=== PATIENT | female | born 1935 | race Caucasian/White ===

== ENCOUNTER 2018-06-27 20:53 | Emergency (ER) | payer MEDICARE, SELFPAY ==
[2018-06-27 20:56] VITALS: BP 157/88; PULSE 76; PULSE 79; RESP 18; TEMP 36.8; O2SAT 97; O2SAT 98; BMI 20.4
[2018-06-27 22:40] LABS: Absolute Lymphocyte Count 1.66 X10^3/ul (0.83-4.51); Absolute Neutrophil Count 3.4 X10^3/uL (2.0-7.7); Basophil# 0.02 X10^3/uL; Basophil% 0.3 % (0-1); Eosinophil# 0.04 X10^3/uL; Eosinophils% 0.7 % (0-5); Hemoglobin 13.5 g/dl (12.0-15.0); Lymphocyte # 1.66 X10^3/ul (4.0); Lymphocyte % 28.6 % (19-41); Mean Corp Hgb Conc 34.6 g/gl (32-36); Mean Corpuscular Hgb 30.2 pg (27.0-32.0); Mean Corpuscular Volume 87.2 fL (81-99); Mean Platelet Vol. 8.8 fl (6.2-12.0); Monocyte# 0.73 X10^3/uL; Monocyte% 12.6 % (0-10); Neutrophil # 3.35 X10^3/uL (2.7-7.7); Neutrophil % 57.6 % (47-70); Platelet Count 198 K/mm3 (150-450); RBC Distribution Width CV 12.3 % (11.6-14.6); RBC Distribution Width SD 39.2 fl (35.1-43.9); Red Blood Count 4.47 M/mm3 (4.2-5.4); White Blood Count 5.8 K/mm3 (4.4-11.0)
[2018-06-27 22:44] LABS: POSITIVE COUNT NO; POSITIVE DIFFERENTIAL NO; POSITIVE MORPHOLOGY NO
[2018-06-27 23:00] LABS: Anion Gap 6 (5-15); BUN 13 mg/dL (7-18); BUN/Creat Ratio 15.5 RATIO (10-20); Calcium,Total 9.2 mg/dL (8.5-10.1); Chloride 109 mmol/L (98-107); Creatinine, Serum 0.84 mg/dL (0.55-1.02); EST Glomerular Filtration Rate 69 mL/min (>60); Est Glom Filt Rate - Afr Amer 84 mL/min (>60); Estimated Creatinine Clearance 40.31 ml/min; Glucose 95 mg/dL (74-106); Potassium 3.4 mmol/L (3.5-5.1); Sodium Level 144 mmol/L (136-145); Thyroid Stim Hormone (TSH) 0.21 uIU/mL (0.358-3.74)
[2018-06-27 23:03] VITALS: BP 154/78; PULSE 62; RESP 13; O2SAT 99
--- NOTE | 2018-06-27 23:16 | ED.DCSUM_ITS ---
- ER Visit Summary Date of Service: 06/27/18 Chief Complaint: Lightheaded and numbness History of Present Illness: The patient is a [address] Trevizo. She reports that approximately 5:00 this afternoon she was sitting on the couch and been on the phone for approximately 30 minutes when she began feeling lightheaded. She states that this episode lasted approximately 20 minutes. There was no other associated features. No chest pain or palpitations. No shortness of breath. No abdominal pain or nausea. No diaphoresis. There was no change when she stood. She did not pass out. She reports that she drank a great deal of water and that this resolved. Patient reports that while this began she had diffuse tingling that included her face, trunk, both arms, and both legs. She states that she has had this previously without an explanation. She reports that the tingling has improved, but is still present. Review of systems: General: No fever, chills, cold sweats. Cardiovascular: No chest pain, palpitations. Respiratory: No cough, shortness of breath, dyspnea on exertion. Gastrointestinal: No abdominal pain, nausea, vomiting, diarrhea, melena, or hematochezia. Genitourinary: No dysuria, frequency, hematuria. Skin: No rash. Neuro: No headache, weakness. Physical Examination: Vitals: Stable. Afebrile. General: Well-nourished and well-developed. Head: Normocephalic atraumatic. Neck: Supple, no lymphadenopathy. No JVD. Nontender. Cardiovascular: Regular rate and rhythm. No murmurs. Respiratory: No respiratory distress. Clear to auscultation bilaterally. Abdominal: Soft, nontender, nondistended, normal bowel sounds. No guarding, rebound, or peritoneal signs. Back: Nontender. Extremities: Nontender, no edema. Skin: Normal color, no rash. Neurologic: Alert and oriented ?3. Cranial nerves II through XII are intact. Normal strength and sensation. Psych: Normal affect. Test Results: EKG is sinus at [address] changes. Troponins negative. Chem-7 is more for potassium 3.4 chloride 109. CBC is more for monocytes of 13. TSH is 0.21. Emergency Department Course and Treatment: Patient is resting comfortably without complaint. I did have a discussion with the patient about her low TSH. She reports that her Synthroid was already decreased 3 days ago. Treatment Plan: At this time I do not have an explanation for the patient's paresthesias. She will be discharged instructions to follow-up Dr. Trevizo in 1-2 days for another exam. Return to the emergency department for any worsening symptoms. Disposition: To home in improved and stable condition. Impression: 1. Paresthesias, uncertain cause. This note was generated with [employer] dictation software. It may contain incorrect words, spelling, and punctuation that were not noted in review of the chart prior to signing ED Disposition - Plan for ED Patient: Disposition: Home or Assisted Living Chief Complaint: Numb/Ting Instructions: ED Paraesthesias Referrals: Aide Trevizo MD [Primary Care Provider] - As soon as possible
[2018-06-27 23:31] VITALS: BP 140/80; PULSE 58; RESP 17; O2SAT 98
== END 2018-06-27 23:32 | disposition home or self-care (01) ==
LOC: ED 21:51
PROVIDERS: Emergency Provider Emergency Medicine; Family Provider Internal Medicine; PCP Internal Medicine
DX: R20.2 Paresthesia of skin (principal); R42 Dizziness and giddiness; E03.9 Hypothyroidism, unspecified; M81.0 Age-related osteoporosis without current pathological fracture
CPT/HCPCS: 80048; 84443; 84484; 85025; 93005; 99284; A4216

== ENCOUNTER 2018-08-13 13:57 | Emergency (ER) | payer MEDICARE, SELFPAY ==
[2018-08-13 13:59] VITALS: BP 153/90; PULSE 68; RESP 18; TEMP 36.4; O2SAT 99; BMI 22.1
[2018-08-13] MEDS: Triamcinolone Acetonide 40 MG/ML Vial IM (14:28)
[2018-08-13] MEDS: DiphenhydrAMINE 25 MG Capsule PO (14:28)
--- NOTE | 2018-08-13 15:40 | ED.VISSUMM ---
- ER Visit Summary Date of Service: 08/13/18 Chief Complaint: Bug bite History of Present Illness: The patient is a 83 F who presents after a bug bite or sting. She was outdoors. She felt a sudden pain on her left chest. She developed redness and itching. She initially applied hydrocortisone cream. She then crushed a cetirizine tablet mixed in water and applied it topically and also took a cetirizine orally. She does complain of itching on her hands and under her arms. No difficulty breathing. No nausea or vomiting. She had a recent illness which began 2 weeks ago when she had fever up to 101 but no recent fevers. She has complained of some fatigue since that time and is currently undergoing an outpatient workup. Physical Examination: Afebrile vitals are unremarkable Moist mucous membranes Heart regular rate and rhythm Lungs clear Abdomen soft Patient does have a small lesion on the left lateral chest which appears consistent with a bite or sting. She has urticaria in that area extending onto the breast as well as on the abdomen and arms. No respiratory distress no stridor Test Results: Not indicated Emergency Department Course and Treatment: Patient treated with intramuscular Kenalog and oral Benadryl. She has been observed for two hours and shows significant improvement. She will be discharged home to follow-up as an outpatient. Treatment Plan: [] Disposition: Discharge Impression: Bug bite or sting Allergic reaction This note was generated with [employer] dictation software. It may contain incorrect words, spelling, and punctuation that were not noted in review of the chart prior to signing ED Disposition - Plan for ED Patient: Chief Complaint: Bite Referrals: Aide Trevizo MD [Primary Care Provider] -
--- NOTE | 2018-08-13 15:42 | ED.DEP ---
ED Disposition - Plan for ED Patient: Chief Complaint: Bite Instructions: ED Bite Sting Insect Gen Allergic React Referrals: Aide Trevizo MD [Primary Care Provider] -
[2018-08-13 15:52] VITALS: RESP 18; O2SAT 98
== END 2018-08-13 15:52 | disposition home or self-care (01) ==
PROVIDERS: Emergency Provider Emergency Medicine; Family Provider Internal Medicine; PCP Internal Medicine
DX: T63.481A Toxic effect of venom of other arthropod, accidental (unintentional), initial encounter (principal); L50.0 Allergic urticaria; E20.9 Hypoparathyroidism, unspecified; E03.9 Hypothyroidism, unspecified
CPT/HCPCS: 96372; 99284

== ENCOUNTER 2018-09-10 22:10 | Emergency (ER) | payer MEDICARE, SELFPAY ==
[2018-09-10 22:10] VITALS: BP 166/96; PULSE 90; RESP 16; O2SAT 98
[2018-09-10 22:11] VITALS: BP 166/96; PULSE 81; RESP 16; TEMP 36.8; O2SAT 100; BMI 21.1
[2018-09-10 22:20] LABS: Bedside Glucose 127 mg/dL (70-110)
--- NOTE | 2018-09-10 22:36 | EKG12_ITS ---
Test Reason : Blood Pressure : / mmHG Vent. Rate : 070 BPM Atrial Rate : 070 BPM P-R Int : 130 ms QRS Dur : 074 ms QT Int : 390 ms P-R-T Axes : 067 044 069 degrees QTc Int : 421 ms Normal sinus rhythm Low voltage QRS Confirmed by ALVIN HALL, TENZIN ([id number]), clinical editor ANISH SUTHERLAND ([id number]) on 09/11/2018 10:04:57 AM Referred By: LAVERNE Confirmed By:TENZIN ESQUIVEL MD
--- NOTE | 2018-09-10 22:36 | CT_ITS ---
STUDY: CT BRAIN WITHOUT CONTRAST REASON FOR EXAM: Female, 83 years old. Extremity numbness. RADIATION DOSAGE (If Supplied By Facility): CTDIvol = ( 44.99 ) mGy, DLP = ( 745.49 ) mGycm TECHNIQUE: Transaxial CT imaging of the brain was performed without administration of intravenous contrast material. Multiplanar reformations are submitted for interpretation. Individualized dose optimization techniques were used for this CT. COMPARISON: Prior comparison studies are not available for review at this time. FINDINGS: Normal soft tissue structures. Normal calvarium. There is mild cerebral atrophy with widening of the extra-axial spaces and ventricular dilatation. There are areas of decreased attenuation within the white matter tracts of the supratentorial brain, consistent with microvascular disease changes. Normal basal ganglia and thalami. Normal brainstem. There is mild cerebellar atrophy. There is no intracranial hemorrhage. There is minimal atherosclerotic calcification of the intracranial arteries. Normal visualized paranasal sinuses. CT/Brain/Head without Contrast IMPRESSION: 1. Chronic involutional changes of the brain. 2. No CT evidence of acute intracranial hemorrhage. Electronically Signed: Kendy Byers MD at 23:25 EDT , Service support ,
[2018-09-10 22:45] LABS: Absolute Lymphocyte Count 1.76 X10^3/ul (0.83-4.51); Absolute Neutrophil Count 3.6 X10^3/uL (2.0-7.7); Basophil# 0.02 X10^3/uL; Basophil% 0.3 % (0-1); Eosinophil# 0.12 X10^3/uL; Hematocrit 41.3 % (37-47); Hemoglobin 14.1 g/dl (12.0-15.0); Lymphocyte # 1.76 X10^3/ul (4.0); Lymphocyte % 28.6 % (19-41); Mean Corp Hgb Conc 34.1 g/gl (32-36); Mean Corpuscular Hgb 30.2 pg (27.0-32.0); Mean Corpuscular Volume 88.4 fL (81-99); Mean Platelet Vol. 8.7 fl (6.2-12.0); Monocyte# 0.68 X10^3/uL; Monocyte% 11.1 % (0-10); Neutrophil # 3.55 X10^3/uL (2.7-7.7); Neutrophil % 57.7 % (47-70); POSITIVE COUNT NO; POSITIVE DIFFERENTIAL NO; POSITIVE MORPHOLOGY NO; Platelet Count 238 K/mm3 (150-450); RBC Distribution Width CV 12.4 % (11.6-14.6); RBC Distribution Width SD 39.8 fl (35.1-43.9); Red Blood Count 4.67 M/mm3 (4.2-5.4); White Blood Count 6.2 K/mm3 (4.4-11.0)
[2018-09-10 22:59] LABS: Albumin, Serum 3.8 g/dL (3.2-5.0); BUN 15 mg/dL (7-18); Creatinine, Serum 0.84 mg/dL (0.55-1.02); EST Glomerular Filtration Rate 70 mL/min (>60); Est Glom Filt Rate - Afr Amer 84 mL/min (>60); Estimated Creatinine Clearance 37.73 ml/min; Glucose 118 mg/dL (74-106); Protein, Total 7.8 g/dL (6.4-8.2)
[2018-09-10 23:00] LABS: AST(SGOT) 20 U/L (15-37); Alanine Aminotransfer ALT/SGPT 21 U/L (13-56); Alkaline Phosphatase 76 U/L (45-117); Anion Gap 8 (5-15); Calcium,Total 9.6 mg/dL (8.5-10.1); Chloride 100 mmol/L (98-107); Potassium 3.3 mmol/L (3.5-5.1); Sodium Level 138 mmol/L (136-145)
--- NOTE | 2018-09-10 23:11 | ED.DCSUM_ITS ---
- ER Visit Summary Date of Service: 09/10/18 Chief Complaint: Paresthesia History of Present Illness: The patient is a 83 F presenting for evaluation secondary to paresthesias. Patient states that since mid June she has been dealing with these issues where she will get intermittent paresthesias. She sta nima that they are not necessarily in one place versus another and will be associated with foot leg abdominal chest back arm or head paresthesias. Patient states that there are necessarily any sort of exacerbating or relieving factors for this. She was seen in the emergency department for this in June and had a workup that included EKG and blood work and was discharged. Patient has been working with her primary care physician Dr. Lopez Morel for further workup of this. She had a recent CT brain with and without contrast that was negative and she has had a litany of blood tests that have not revealed an etiology for her symptoms as of yet. Patient states that somewhere between June and today she was in [place] and she had a fever and neck pain and back pain. It was thought that potentially she had viral meningitis, but there was never any sort of confirmation of this. Denied patient's presenting because she was having an episode of her paresthesias but it was also associated with a very sudden onset of a weird feeling in her head. She states that she felt as if she was going to have double vision but she never actually did. She denies that there is any sort of pain associated with this. Patient now states that she has head to toe paresthesias without any laterality to this. Physical Examination: Vital signs are within normal limits, patient is afebrile. General: Patient is well-nourished well-developed and in no acute distress. Head: Normocephalic, atraumatic Eyes: Pupils equal round and reactive bilaterally, extra occular motion intact bialterally ENT: Moist mucous membranes Neck: Supple, no lymphadenopathy, no JVD, no meningismus CVS: Heart regular rate and rhythm, no murmurs, rubs or gallops, radial pulses 2+ bilaterally Resp: Respirations nondistressed, lung sounds clear bilaterally Abdomen: Soft, nontender, nondistended, no palpable masses, normal bowel sounds Back: Nontender Extremities: Nontender, atraumatic, active full range of motion, no peripheral edema Skin: warm, no rashes, no petechia Neuro: Alert and oriented x 4, CN 2-12 intact, no lateralizing neurological defecits, NIH stroke scale is 0 Psyc: Normal affect Test Results: CBC and CMP are remarkable only mild hypokalemia 3.3. Troponin negative. CT brain shows chronic involutional changes Emergency Department Course and Treatment: Patient presented for evaluation secondary to paresthesias and a weird feeling in her head. Fact the patient stated that she had the weird feeling in her head followed by paresthesia was at least somewhat concerning for the possibility of new intracranial pathology so a CT brain was performed which is negative. Patient is within a 6-hour window so likelihood of subarachnoid hemorrhage is extremely low and I do not believe that further workup is indicated from that aspect. CBC was within normal limits, making the likelihood of infection or lymphoma causing the patient's symptoms to be low. She has normal electrolyte panel normal EKG and a normal troponin. Patient has had an extensive outpatient workup for this including Lyme titers, autoimmune titers, imaging, but is not yet had a neurologic consultation. I believe that this likely is the next step for this patient as she may benefit from advanced imaging with MRI as this could potentially be an element of demyelinating disease versus autoimmune. Patient will be given a referral to neurology at this point. I see no utility in admitting the patient to the hospital at this time. Patient will be discharged with continued outpatient follow-up. Disposition: Discharge Impression: 1. Bilateral paresthesias This note was generated with [employer] dictation software. It may contain incorrect words, spelling, and punctuation that were not noted in review of the chart prior to signing ED Disposition - Plan for ED Patient: Disposition: Home or Assisted Living Chief Complaint: Neuro S/Sx Diagnosis: Paresthesia Instructions: ED Paraesthesias Referrals: Slava Madsen MD [STAFF PHYSICIAN] - As soon as possible
[2018-09-11 00:06] VITALS: BP 155/92; PULSE 67; RESP 16; O2SAT 96
[2018-09-11 00:26] VITALS: BP 141/83; PULSE 72; RESP 17; O2SAT 97
== END 2018-09-11 00:30 | disposition home or self-care (01) ==
PROVIDERS: Emergency Provider Emergency Medicine; Family Provider Internal Medicine; PCP Internal Medicine
DX: R20.2 Paresthesia of skin (principal); Z79.899 Other long term (current) drug therapy
CPT/HCPCS: 70450; 80053; 82962; 84484; 85025; 93005; 99285; A4216

== ENCOUNTER 2018-11-15 12:30 | Outpatient (RCR) | payer MEDICARE, SELFPAY ==
--- NOTE | 2018-10-09 11:49 | HP.PTEVAL_ITS ---
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 Date of Evaluation: 10/08/18 Physical Therapist: India Jones Visit Plan Frequency: 2-3x /Week Duration: 4-6 Weeks Plan: POSTURE CORRECTION/STRENGTHENING, INSTRUCTION IN APPROPRIATE BODY MECHANICS AND ACTIVITY MODIFICATIONS. GEORGE UE ROM, STRETCHING AND STRENGTHENING. HEP INSTRUCTION. 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 Work/Leisure: RETIRED. HOBBIES: GOLF, KNITTING, BRIDGE. Disability: NO. Present symptoms: IN THE LAST WEEK OR SO MARINA REPORTS TINGLING IN HER NECK, FACE, LIPS, HEAD AND FEET. NECK STIFFNESS. TINGLING IN LEGS LEFT > RIGHT. NO NECK PAIN. NO UE PAIN. PATIENT DENIES BEING HERE FOR ANY OTHER SX'S TODAY. Present since: JUN 27 2018. TINGLING Scale: Worst - 3- 4/10 Least - 2-3/10 (IN FEET LEFT >RIGHT). 0/10 TO 4/10 IN NECK AREA AND FACE AND HEAD. Currently: NECK TINGLING AND SLIGHTLY IN CHEEKS. Commenced as a result of: 06/27/18 - 9PM SITTING ON COUCH TALKING ON PHONE AND ALL OF A SUDDEN SHE REPORTS SHE GOT TINGLING FULL BODY. SHE STATES SHE IGNORED IT AT FIRST THEN SHE WENT TO THE ED. SHE REPORTS SHE WAS NOT DIAGNOSED AND SHE WAS SENT HOME BECAUSE IT SEEMED TO RESOLVE ON ITS OWN. BETWEEN JUN AND ABOUT Jul SHE DIDN'T HAVE ANY SYMPTOMS. SUDDENLY SHE WOKE UP WITH SEVERE NECK PAIN AND COULDN'T GET OUT OF BED AND HAD FEVER ABOUT AUG 01 2018 WHILE IN [place]. SHE REPORTS SHE DID'T GO TO THE DOCTOR AT THAT POINT UNTIL ABOUT 6 OR 7 DAYS LATER. SHE WENT TO URGENT CARE AND THEY THOUGHT SHE MIGHT HAVE [place] D[facility]. SHE FELT VERY WEAK FLYING HOME. ONCE SHE GOT HOME THE TINGLING HAD RESOLVED AND SHE WAS JUST VERY TIRED. SHE WENT TO [facility] TO DR. ZENDEJAS AND WAS DIAGNOSED WITH VIRAL MENINGITIS. SHE THEN NOTICED THE TINGLING IN HER FEET. SHE SAW DR. MOREL AND SHE DID FURTHER BLOOD WORK. 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 AGAIN SUDDENLY ABOUT 9PM STANDING IN THE KITCHEN TINGLING SWELLED THROUGH HER WHOLE BODY INCLUDING HER HEAD AND SHE CALLED THE [facility]. IN THE ED CAT SCAN WAS NORMAL AND EKG WAS NORMAL. THE SYMPTOMS RESOLVED AGAIN IN THE ED AND NEUROLOGIST WAS RECOMMENDED AND PATIENT REPORTS SHE CHOSE TO WAIT TO SEE A [facility] DOCTOR. IMAGING WAS NEGATIVE AGAIN EXCEPT THE CERVICAL SPINE. NEUROLOGIST IN [place] FOUND NUMBNESS IN LEFT TOES. Symptoms at onset: WHOLE BODY TINGLING. Worse: PATIENT THINKS IT MIGHT BE THE WAY SHE HOLDS HER HEAD. MAYBE LOOKING DOWN. PROPPING HEAD UP AT NIGHT IN BED TO READ. Better: CHANGING HEAD POSITION. Disturbed sleep: NO. Previous history/Previous treatment: UNREMARKABLE. Dizziness: NO. Tinnitis: NO. Nausea: NO. Shortness of Breath: SOME NEW INTERMITTENT SOB WITH STEPS AT HOME SINCE JUN. Difficulty Swollowing: NO BUT VOICE IS DIFFEERENT. Gait: FEELS UNSTABLE INTERMITTENTLY BUT NOT IN LAST FEW WEEKS. NO FALLS. Accidents: NO. Unexplained weight loss: NO. Imaging: MULTIPLE IMAGES OF HEAD AND NECK. PATIENT REPORTS THE ONLY THING THEY FOUND WAS DEGENERATION IN THE NECK - ESPECIALLY C34 REGION TO THE BEST OF HER RECOLECTION. PMH/Recent major surgery: OSTEOPOROSIS, THYROID AND PARATHYROID CONDITIONS. LEFT FOOT LUMP - PODIATRY APPOINTMENT PENDING MONDAY. REMOTE HISTORY OF TWO HERNIATED LUMBAR DISCS - NO BACK SURGERY. PLOF (Prior Level of Function): MORE ENERGY. OTHER: HISTORY OF VOCAL CORDS FREEZING IN [place] IN AUG 2018. RHEUMATOLOGY APPOINTMENT PENDING IN JANUARY 2018. PATIENT REPORTS DR. MOREL RECOMMENDED NECK STRETCHES BUT SHE HAS NOT DONE ANY BECAUSE SHE DOESN'T KNOW WHAT TO DO AND DOESN'T WANT TO MAKE ANYTHING WORSE. - Objective Sitting Posture: FORWARD HEAD. NO TORTICOLLIS. Active Correction of posture: NE. Other Observations: THIS PATIENT AMBULATES INDEP'LY INTO PT WITHOUT ANY ASSISTIVE DEVICES AND NO GROSS DEVICATIONS NOTED. Motor deficit: GEORGE UE AND LE STRENGTH IS WFL WITH MMT'ING. I PROCEEDED CAREFULLY WITH ALL TESTING TODAY INCLUDING MMT'ING BUT PATIENT HAS AT LEAST 4-5/5 GEORGE UE AND LE STRENGTH. PATIENT DENIES INCREASED SX'S WITH TESTING. Sensory deficit: LIGHT TOUCH APPEARS INTACT AND SYMMETRICAL CURRENTLY BUT TOES NOT TESTED SPECIFICALLY. ROM deficit: GEORGE UE AND LE ROM WFL BUT MILD TIGHTNESS OF GEORGE HS'S AND GASTROC - SOLEUS COMPLEX'S. Reflexes: 2/3 GEORGE UE'S AND LE'S. Dural Signs: NEGATIVE GEORGE UE AND LE'S. Cervical Mvmt Loss: Flex: MIN. Pro: NIL. Ext: MOD. Ret: SHANDRA. RSB: MIN. LSB: MOD. R Rot: MIN. L Rot: MOD. Postural strength: POOR. Palpation: PATIENT DENIES ANY ACUTE TENDERNESS WITH PALPATION OF THE THORACIC SPINE, CERVICAL SPINE, OCCIPUT AND TRAPS. SHE THOUGHT THAT LIGHT PALPATION OF HER UPPER CERVICAL SPINE MIGHT HAVE PRODUCED MILD SX'S IN HER LEGS BUT THIS COULD NOT BE REPRODUCED. - Goals Goal 1:: DECREASE C/O TINGLING IN THE VARIOUS PARTS OF HER BODY REPORTED. Goal Time Frame: 4-6 Weeks Goal 2:: IMPROVE PATIENTS ABILITY TO HOLD HER HEAD IN ANY POSITION WITHOUT PROVOKING SX'S TO ALLOW HER TO CONTINUE TOLERATING ACTIVITIES LIKE READING AND PLAYING CARDS. Goal Time Frame: 4-6 Weeks Goal 3:: INDEP HEP FOR CONTINUED IMPROVEMENT ONCE FORMAL PHYSICAL THERAPY CONCLUDES Goal Time Frame: 4-6 Weeks - Rehabilitation Potential Rehabilitation Potential: Good - Anticipated Interventions Patient/Client Instruction: Educate patient on: Condition, Plan of Care, Risk Factors, Benefits of Fitness Program For the Purpose of:: To improve self management Therapeutic Exercise to Include: Strength training, Body mechanics, Postural training, Active ROM, Scapular Strength/Stabilization For the Purpose of:: To increase ROM, To improve nutrient delivery to tissue, To improve muscle performance and motor function, To increase tolerance to a ctivity/condition/position, To improve ability of physical actions for home/community/work/leisure Ultrasound (thermal/non thermal): Yes - CONSIDER For the Purpose of:: To improve nutrient delivery to tissue Thank you for the opportunity to evaluate your patient. For Medicare and Medicare HMO plans, please review the plan of care and approve it. It will need to be FAXED BACK to us at [phone] for Medicare purposes. Please let me know if there are questions or concerns regarding this plan of care. Physician Signature: Date:
--- NOTE | 2018-11-15 13:36 | HP.PTDCSUM ---
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 Discharge Date: Please see the following information for a summary of their discharge status. - Subjective Subjective: PATIENT REPORTS SHE HAD TO GO TO THE ED October FOR CELLULITS IN HER RIGHT LEG. SHE REPORTS SHE IS STILL ON MEDICINE. PATIENT REPORTS THAT THE TINGLING SHE IS HERE FOR IS BETTER OVER ALL. IT HAS CONTINUED TO IMPROVE. STATES SHE HAS CONTINUED HER HOME EX'S BUT NOT REGULARLY DUE TO COMPANY AND THE HOLIDAY'S. STATES SHE HAS TO BE CAREFUL NOT TO OVER-DO-IT OR SHE GETS TINGLING IN HER FACE. THE REST OF HER TINGLING HAS RESOLVED EXCEPT THE FEET AND ALL THE TINGLING COMES AND GOES. NO TINGLING CREEPING UP LEG/LEGS NOW. PATIENT REPORTS THAT HOW SHE SITS EFFECTS HER SX'S. PATIENT APOLOGETIC ABOUT BEING LATE AGAIN. ABLE TO GO SEE JENNIFER ALIREZA. - Overall Improvement % Improvement: 80 - Objective Objective/Function: PATIENT HAS IMPROVED DURING THIS EPISODE OF CARE WITH PT. SHE IS REPORTING THAT HER TINGLING HAS RESOLVED EXCEPT IN HER FACE AND FEET AND EVEN THAT HAS IMPROVED AND IS MILD NOW. THIS PATIENT AMBULATES INDEP'LY INTO PT WITHOUT ANY ASSISTIVE DEVICES AND NO GROSS DEVICATIONS NOTED. Motor deficit: GEORGE UE AND LE STRENGTH IS WFL WITH MMT'ING. I WAS ABLE TO BE MORE AGRESSIVE WITH TESTING TODAY AND PATIENT DENIED INCREASED SX'S WITH TESTING BUT QUESTIONING POSSIBLE SLIGHT CHANGES IN FACE AND FOOT TINGLING OFF AND ON THROUGHOUT SESSION. Sensory deficit: LIGHT TOUCH APPEARS INTACT AND SYMMETRICAL CURRENTLY. ROM deficit: GEORGE UE AND LE ROM WFL. Dural Signs: NEGATIVE GEORGE UE AND LE'S. Cervical Mvmt Loss: Flex: MIN. Pro: NIL. Ext: MIN TO MOD. Ret: MOD. RSB: MIN. LSB: MOD. R Rot: MIN. L Rot: MOD. Postural strength: POOR. Palpation: PATIENT DENIES ANY ACUTE TENDERNESS WITH PALPATION OF THE THORACIC SPINE, CERVICAL SPINE, OCCIPUT AND TRAPS. SHE IS TIGHT THROUGHOUT GEORGE UT'S AND PATIENT REPORTS FEELING TIGHTER IN THE RIGHT THAN THE LEFT. THERE IS NO SIGNIFICANT CHANGE IN NECK OSWESTRY SCORE BUT PATIENT REPORTS SHE HAS NOT TRIED TO GOLF AT LEAST PARTIALLY DUE TO THE CURRENT WEATHER. OSWESTRY SCORE IS GOOD PROBABLY BASED AT LEAST PARTIALLY DUE TO PATIENTS C/O BEING TINGLING NOT PAIN. PATIENT MAY BE A GOOD CANDIDATE FOR MASSAGE THERAPY BUT THIS PT INSTRUCTED PATIENT TO CLEAR IT WITH HER DOCTORS FIRST. - Goals Goal 1:: DECREASE C/O TINGLING IN THE VARIOUS PARTS OF HER BODY REPORTED. Goal Progress: Goal Met Goal 2:: IMPROVE PATIENTS ABILITY TO HOLD HER HEAD IN ANY POSITION WITHOUT PROVOKING SX'S TO ALLOW HER TO CONTINUE TOLERATING ACTIVITIES LIKE READING AND PLAYING CARDS. Goal Progress: Goal Met Goal 3:: INDEP HEP FOR CONTINUED IMPROVEMENT ONCE FORMAL PHYSICAL THERAPY CONCLUDES Goal Progress: Goal Met - Plan Plan: D/C TO INDEP HEP. PATIENT IS AGREEABLE. - D/C Information If there are questions or concerns regarding this patient's physical therapy, please feel free to call me at [phone]. Thank you for the referral of this patient. Sincerely, India Borrero, PT, Cert MDT
== END 2018-11-15 19:00 | disposition home or self-care (01) ==
LOC: PT 12:30
PROVIDERS: Family Provider Student in an Organized Health Care Education/Training Program; PCP Student in an Organized Health Care Education/Training Program; Referring Provider Student in an Organized Health Care Education/Training Program; Visit Provider Student in an Organized Health Care Education/Training Program
DX: M47.812 Spondylosis without myelopathy or radiculopathy, cervical region (principal); M50.30 Other cervical disc degeneration, unspecified cervical region
CPT/HCPCS: 97035; 97110; 97140; 97163; 97530

== ENCOUNTER 2019-06-19 18:04 | Emergency (ER) | payer MEDICARE, SELFPAY ==
[2019-06-19 18:04] VITALS: BP 127/69; PULSE 112; RESP 16; TEMP 37.2; O2SAT 97; BMI 19.8
[2019-06-19] MEDS: MethylPREDNISolone 125 MG/2 ML Vial IV (18:23)
[2019-06-19] MEDS: DiphenhydrAMINE 50 MG/ML Syringe 25 MG IV (18:23)
--- NOTE | 2019-06-19 20:26 | ED.VISSUMM ---
- ER Visit Summary Date of Service: 06/19/19 Chief Complaint: Sting History of Present Illness: The patient is a 83 F who presents after she was stung by some type of insect. This happened suddenly prior to arrival. She was stung in the right ankle. She developed a rash afterwards to her trunk. She had a similar reaction in the past. She denies any confusion or mental status changes. Denies any wheezing or shortness of breath. Denies any GI symptoms, vomiting, or diarrhea. Denies any history of anaphylaxis. Physical Examination: Afebrile and vital signs unremarkable. Alert and oriented. Patient has a single puncture wound to her right ankle without stinger, foreign body. No surrounding erythema, redness, warmth. No bleeding. Neurovascular intact. She has an urticarial rash to her trunk, exam was chaperoned by EVETTE Radford. Test Results: None indicated Emergency Department Course and Treatment: Patient has urticaria without anaphylaxis. She was treated with steroids, Benadryl, Pepcid. On reevaluation, the rash had greatly improved. I believe the patient is appropriate for outpatient care. She will be prescribed Benadryl, Pepcid, prednisone. Her family will stay with her tonight. Return for any new or worsening issues. Treatment Plan: As above Disposition: Discharged Impression: 1. Urticaria This note was generated with [employer] dictation software. It may contain incorrect words, spelling, and punctuation that were not noted in review of the chart prior to signing ED Disposition - Plan for ED Patient: Instructions: ALLERGIC REACTION, Insect (General) Prescriptions: DiphenhydrAMINE [Benadryl] 25 mg PO TID PRN PRN 5 Days #15 cap PRN Reason: rash Prescription Printed Famotidine [Pepcid] 20 mg PO BID 5 Days #10 tab Prescription Printed Prednisone 10 mg PO UD #33 tab Prescription Printed Referrals: Lopez Morel DO [Primary Care Provider] -
[2019-06-19 20:41] VITALS: BP 132/78; PULSE 69; RESP 16; O2SAT 100
--- NOTE | 2019-06-19 20:41 | ED.RN ---
REVIEWED D/C INSTRUCTIONS, FOLLOW UP CARE, PRESCRIPTIONS, AND S/S THAT WOULD WARRANT A RETURN TO THE ED WITH PT. PT VERBALIZED AN UNDERSTANDING AND DENIES FURTHER QUESTIONS FOR THIS RN. PT SKIN P/W/D, RESP EVEN AND UNLABORED, PT A&O X 3, NO DISTRESS NOTED. PT ASSISTED OUT OF ED IN WHEELCHAIR.
== END 2019-06-19 20:42 | disposition home or self-care (01) ==
PROVIDERS: Emergency Provider Emergency Medicine; Family Provider Student in an Organized Health Care Education/Training Program; PCP Student in an Organized Health Care Education/Training Program
DX: L50.9 Urticaria, unspecified (principal); S90.561A Insect bite (nonvenomous), right ankle, initial encounter; W57.XXXA Bitten or stung by nonvenomous insect and other nonvenomous arthropods, initial encounter; Y93.9 Activity, unspecified; Y92.9 Unspecified place or not applicable; M81.0 Age-related osteoporosis without current pathological fracture; E21.3 Hyperparathyroidism, unspecified; Z86.19 Personal history of other infectious and parasitic diseases; Z79.899 Other long term (current) drug therapy
CPT/HCPCS: 96374; 96375; 99283; A4216; J3490

== ENCOUNTER 2020-03-19 18:43 | Emergency (ER) | payer MEDICARE, SELFPAY ==
[2020-01-27 11:19] VITALS: BMI 21.2
[2020-03-19] VITALS (8 sets, daily range): BP systolic 140–175; BP diastolic 78–105; PULSE 82–113; RESP 14–20; TEMP 37.2–37.3; O2SAT 94–97; BMI 21.1
--- NOTE | 2020-03-19 19:16 | CT_ITS ---
STUDY: CT BRAIN WITHOUT CONTRAST REASON FOR EXAM: Female, 84 years old. HTN, FEVER, HEADACHE RADIATION DOSAGE (If Supplied By Facility): CTDIvol = ( 44.99 ) mGy, DLP = ( 745.49 ) mGycm TECHNIQUE: Transaxial CT imaging of the brain was performed without administration of intravenous contrast material. Individualized dose optimization techniques were used for this CT. COMPARISON: No relevant priors. FINDINGS: Normal soft tissue structures. Normal calvarium. Normal size ventricles and extra-axial spaces for the patient''s age. There are areas of decreased attenuation within the white matter tracts of the supratentorial brain, consistent with microvascular disease changes. 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 Normal brainstem. There is mild cerebellar atrophy. There is no intracranial hemorrhage. There are no findings of an acute ischemic infarction. Normal visualized paranasal sinuses. CT/Brain/Head without Contrast IMPRESSION: No acute intracranial findings. Negative for hemorrhage, hematoma or demarcation of a new nonhemorrhagic infarct zone. Involutional changes appropriate for age and old small left frontal periventricular lacunar infarct. Normal paranasal sinuses included in the [id number]. Normal temporal bones. Electronically Signed: Nisreen Galindo MD at 20:28 EDT , Service support ,
--- NOTE | 2020-03-19 19:16 | EKG12_ITS ---
Test Reason : DYSRYTHMIA Blood Pressure : / mmHG Vent. Rate : 097 BPM Atrial Rate : 097 BPM P-R Int : 132 ms QRS Dur : 074 ms QT Int : 354 ms P-R-T Axes : 061 002 037 degrees QTc Int : 449 ms Normal sinus rhythm Nonspecific ST abnormality Abnormal ECG Confirmed by JACQUELYN HALL, RADHA ([id number]), food editor ANISH SUTHERLAND ([id number] on 03/23/2020 2:58:28 PM Referred By: RAH Confirmed By:RADHA VALLADARES MD
[2020-03-19] MEDS: Acetaminophen 500 MG Tablet 1000 MG PO (19:40)
--- NOTE | 2020-03-19 19:40 | RAD_ITS ---
STUDY: X-RAY CHEST REASON FOR EXAM: Female, 84 years old. FEVER TECHNIQUE: Single frontal view of the chest. COMPARISON: 12/24/2010. FINDINGS: Cardiac silhouette unremarkable. Pulmonary vascularity unremarkable. Aorta unremarkable. No focal airspace opacities. No pleural effusions. Upper abdomen unremarkable. Osseous structures intact. No pneumothorax. RAD/Chest 1 View (Portable) IMPRESSION: No acute cardiopulmonary findings Electronically Signed: Joseph Hdez, at 20:38 EDT Tel , Service support ,
[2020-03-19 20:06] LABS: Bacteria 0 SEEN /hpf (None Seen); Mucous, Urine 0 SEEN /hpf (<or=2+); Squamous Epithelial Cells - UA 0 SEEN /hpf (5-10)
[2020-03-19 20:07] LABS: Color, Urine Straw (Yellow); Glucose, Dipstick Normal (Normal); Ketone-Dipstick 5 mg/dl (Negative); Leukocyte Esterase-Dipstick Negative /ul (Negative); Nitrite-Dipstick Negative (Negative); Occult Blood-Urine 150 /ul (Negative); Protein-Dipstick Negative (Negative); Urine Bilirubin Dipstick Negative (Negative); Urine Clarity Clear (Clear); Urine Urobilinogen Normal (Normal)
[2020-03-19 20:07] LABS: Absolute Lymphocyte Count 0.74 X10^3/uL (0.83-4.51); Absolute Neutrophil Count 10.5 X10^3/uL (2.0-7.7); Basophil# 0.02 X10^3/uL; Basophil% 0.2 % (0-1); Hematocrit 43.8 % (37-47); Hemoglobin 14.5 g/dL (12.0-15.0); Lymphocyte # 0.74 X10^3/ul (4.0); Lymphocyte % 5.8 % (19-41); Mean Corp Hgb Conc 33.1 g/dL (32-36); Mean Corpuscular Volume 90.7 fL (81-99); Mean Platelet Vol. 8.5 fl (6.2-12.0); Monocyte# 1.36 X10^3/uL; Monocyte% 10.7 % (0-10); NRBC Flagged by Analyzer 0 % (0-5); Neutrophil # 10.49 X10^3/uL (2.7-7.7); Neutrophil % 82.9 % (47-70); Platelet Count 224 K/mm3 (150-450); RBC Distribution Width CV 12.2 % (11.6-14.6); RBC Distribution Width SD 39.9 fl (35.1-43.9); Red Blood Count 4.83 M/mm3 (4.2-5.4); White Blood Count 12.7 K/mm3 (4.4-11.0)
--- NOTE | 2020-03-19 20:16 | ED.DCSUM_ITS ---
- ER Visit Summary Date of Service: 03/19/20 Chief Complaint: Sore throat, constipation History of Present Illness: The patient is a 84 F presenting with sore throat, dry mouth, fever, and constipation. She states this has been ongoing for the past 2 days. She had a gradual onset headache which started yesterday. She has not taken any medication for this. She states she also had constipation Monday and Monday but was able to have a bowel movement today. She complains of sinus pain. She is able to swallow without difficulty. She initially stated that she had a cough but now denies this. She denies chest pain or shortness of breath. She states she feels fatigued. Her son-in-law recently suddenly and she has been under increased stress. She states she has been talking on the phone frequently which may be contributing to her dry mouth. Denies other complaints. Physical Examination: Vitals are stable. Temperature 99. Alert no acute distress. HEENT exam mild pharyngeal erythema, no exudate. Uvula midline. Neck is supple. No meningismus Lungs are clear and equal bilaterally. Heart is regular rate and rhythm. Abdomen is soft nontender nondistended. No guarding or rebound. Extremities are unremarkable. Skin is warm and dry. No focal neurologic deficit. Remainder of exam is unremarkable. Emergency Department Course and Treatment: EKG is sinus rhythm rate of 97. Chest x-ray shows no acute process. CT head shows no acute intracranial findings. Negative for hemorrhage, hematoma or demarcation of a new nonhemorrhagic infarct zone. Involutional changes appropriate for age and old small left frontal periventricular lacunar infarct. Normal paranasal sinuses included in the [id number]. Normal temporal bones. CBC normal except white count 12.7. Chemistries normal except glucose 122. Urinalysis unremarkable. Troponin is negative. Rapid strep is negative. Patient was given Tylenol. With ambulation her pulse ox is 97% on room air. She feels some improvement of her symptoms, she declines additional medications. She has a scheduled appointment with her primary care physician in the morning. She is comfortable with discharge home. She is advised signs and symptoms for which to return to the ED. Disposition: Discharge home Impression: Viral syndrome, constipation This note was generated with [employer] software. It may contain incorrect words, spelling, and punctuation that were not noted in review of the chart prior to signing ED Disposition - Plan for ED Patient: Instructions: ED Upper Resp Infec No Abx Tx Referrals: Lopez Morel DO [Primary Care Provider] -
[2020-03-19 20:23] LABS: Red Blood Cells-Urine 0-5 SEEN /hpf (0-5); Transitional Epithelial - Ur 0-5 SEEN /hpf (0-5)
[2020-03-19 20:24] LABS: White Blood Cells 0-5 SEEN /hpf (0-5)
[2020-03-19 20:41] LABS: Anion Gap 7 (5-15); BUN 14 mg/dL (7-18); BUN/Creat Ratio 15.8 RATIO (10-20); Calcium,Total 9.7 mg/dL (8.5-10.1); Chloride 103 mmol/L (98-107); Creatinine, Serum 0.89 mg/dL (0.55-1.02); EST Glomerular Filtration Rate 65 mL/min (>60); Est Glom Filt Rate - Afr Amer 78 mL/min (>60); Estimated Creatinine Clearance 36.77 ml/min; Glucose 122 mg/dL (74-106); Potassium 3.6 mmol/L (3.5-5.1); Sodium Level 140 mmol/L (136-145)
--- NOTE | 2020-03-19 21:33 | ED.DEP ---
ED Disposition - Plan for ED Patient: Instructions: ED Upper Resp Infec No Abx Tx Referrals: Lopez Morel DO [Primary Care Provider] -
== END 2020-03-19 21:58 | disposition home or self-care (01) ==
LOC: ED 20:26
PROVIDERS: Emergency Provider Emergency Medicine; PCP Student in an Organized Health Care Education/Training Program
DX: B34.9 Viral infection, unspecified (principal); K59.00 Constipation, unspecified
CPT/HCPCS: 70450; 71045; 80048; 81001; 84484; 85025; 87880; 93005; 99284; A4216

== ENCOUNTER 2020-05-17 18:48 | Emergency (ER) | payer MEDICARE, SELFPAY ==
[2020-01-27 11:19] VITALS: BMI 21.2
[2020-03-19 18:45] VITALS: BMI 21.1
[2020-05-17 18:49] VITALS: BP 129/101; PULSE 90; RESP 15; TEMP 36.4; O2SAT 99; BMI 20.7
--- NOTE | 2020-05-17 18:55 | ED.DCSUM_ITS ---
History of Present Illness Chief Complaint: Allergic Reaction Informant: Patient Narrative: 84 year old female presents after being stung on the right wrist in the [place]. Unclear of what type of insect bit or stung her. States that twice last year she had episodes of insect stings where she turned red. She denies any facial or throat swelling. Denies any shortness of breath with these previous encounters. States that she has pain at the site of the sting but no other symptoms. Took 2 Benadryl prior to arrival. Past Medical History - Allergies and Home Meds Allergies/Adverse Reactions: Allergies alendronate sodium [From Fosamax] Allergy (Verified 05/17/20 18:55) Unknown amoxicillin Allergy (Verified 05/17/20 18:55) Unknown doxycycline Allergy (Verified 05/17/20 18:55) Unknown erythromycin base Allergy (Verified 05/17/20 18:55) Unknown tetracycline Allergy (Verified 05/17/20 18:55) Unknown Primary Care Physician: Lopez Morel DO [Primary Care Provider] - Past Medical History: - - Hypoparathyroidism and osteoporosis Smoking Status: Never smoker Review of Systems General: Denies: Chills, Fever, Sweats Eyes: Denies: Visual changes - bilaterally, Diplopia ENT: Denies: Rhinorrhea, Sore throat Cardiovascular: Denies: Chest pain, Palpitations Respiratory: Denies: Dyspnea, Cough, Dyspnea on exertion Gastrointestinal: Denies: Abdominal pain, Nausea, Vomiting, Diarrhea, Melena, Hematochezia Genitourinary: Denies: Dysuria, Hematuria, Frequency Musculoskeletal: Denies: Back pain, Extremity Pain Skin: Reports: Wounds. Denies: Rash Neurological: Denies: Headache, Weakness, Numbness Physical Exam Vital Signs/Narrative: Vital Signs Temp Pulse Resp BP Pulse Ox 05/17/20 18:49 97.6 F L 90 15 129/101 H 99 Inital Vital Signs reviewed: Yes General: Well nourished, Well developed, No Acute Distress Head: Normocephalic, Atraumatic Eyes: Perrl, EOMI ENT: Moist mucous membranes, No rhinorrhea Neck: Supple, Nontender Cardiovascular: Regular rate, Regular rhythm, No murmurs Respiratory: No distress, CTA bilaterally, Chest nontender Abdomen: Soft, Nontender, Nondistended, Normal bowel sounds Back: Nontender, Normal Inspection Extremities: Nontender, No edema Skin: Normal color, No rash, - - Small area of induration on the medial dorsal aspect of the right wrist. Slightly erythematous and swollen. No fluctuance. Full range of motion at that joint. Neurological: Alert, Oriented x3, Cranial nerves II-XII grossly intact, Normal Strength, Normal Sensation Psychological: Normal affect, Normal Mood Diagnostic/Tx/Re-eval - Medical Decision Making Patient appears well nontoxic. Vital signs within normal limits. No evidence of anaphylaxis. Patient has localized erythema and mild induration around the area of the sting. No systemic symptoms. Patient was given Solu-Medrol as well as Pepcid. Had taken Benadryl before arrival. Patient will be given prednisone for the next 4 days. Advised on continued Benadryl for any symptoms. Asked to return for new or worsening symptoms. Patient agreeable and discharged home in stable condition. ED Disposition - Plan for ED Patient: Diagnosis: Allergic reaction, Insect sting Instructions: ED Allergic Reaction Local Other Prescriptions: Prednisone 40 mg PO DAILY #4 tab Transmission Status: Pending to [id number] Referrals: Lopez Morel DO [Primary Care Provider] -
[2020-05-17] MEDS: MethylPREDNISolone 125 MG/2 ML Vial IV (18:57)
[2020-05-17] MEDS: Famotidine 200 MG/20 ML MDV 20 MG in 0.9% Normal Saline (Pres. free 8 ML 300 MG IV (19:01)
[2020-05-17 20:12] VITALS: BP 120/82; RESP 18
== END 2020-05-17 20:12 | disposition home or self-care (01) ==
PROVIDERS: Emergency Provider Emergency Medicine; PCP Student in an Organized Health Care Education/Training Program
DX: T63.481A Toxic effect of venom of other arthropod, accidental (unintentional), initial encounter (principal); M25.531 Pain in right wrist; L53.9 Erythematous condition, unspecified; Y92.828 Other wilderness area as the place of occurrence of the external cause; M81.0 Age-related osteoporosis without current pathological fracture; E20.9 Hypoparathyroidism, unspecified
CPT/HCPCS: 96374; 96375; 99282; A4216; J3490

== ENCOUNTER 2020-06-09 11:58 | Emergency (ER) | payer MEDICARE, SELFPAY ==
[2020-01-27 11:19] VITALS: BMI 21.2
[2020-06-09 12:00] VITALS: BP 169/97; PULSE 83; RESP 20; TEMP 36.6; O2SAT 100; BMI 21.3
--- NOTE | 2020-06-09 12:23 | ED.VIS.GEN ---
History of Present Illness Chief Complaint: General Illness Informant: Patient Narrative: 84-year-old female presenting with dyspepsia, belching, lower chest and upper abdominal pressure. She states that it started with the belching and burping and then progressed to pressure. The pressure is been there today. She feels nauseous but she has not vomited. She states she is passing flatus and she has soft stools. She has history of C. difficile but the stool is the same. She does not have a fever. She does not feel short of breath. She states he eats a vegan diet and nothing that would upset her stomach. The symptoms do not relate to food always. She denies any abdominal surgeries. She denies cardiac history. She states her only medical problems are hypothyroidism and osteoporosis. Past Medical History - Allergies and Home Meds Allergies/Adverse Reactions: Allergies alendronate sodium [From Fosamax] Allergy (Verified 06/09/20 11:59) Unknown amoxicillin Allergy (Verified 06/09/20 11:59) Unknown doxycycline Allergy (Verified 06/09/20 11:59) Unknown erythromycin base Allergy (Verified 06/09/20 11:59) Unknown tetracycline Allergy (Verified 06/09/20 11:59) Unknown Primary Care Physician: Lopez Morel DO [Primary Care Provider] - Prior records reviewed: Yes Surgical History: noncontributory Lives: Alone Smoking Status: Former smoker Alcohol: Rare, Occasional Drugs: None Review of Systems General: Reports: - - Generalized weakness. Denies: Chills, Fever Eyes: Denies: Visual changes - bilaterally, Diplopia ENT: Denies: Rhinorrhea, Sore throat Cardiovascular: Reports: Chest pain Respiratory: Denies: Dyspnea, Cough Gastrointestinal: Reports: Abdominal pain, Nausea, Diarrhea. Denies: Vomiting Genitourinary: Denies: Dysuria, Hematuria, Frequency Musculoskeletal: Denies: Myalgias Skin: Denies: Rash Hematologic: Denies: Easy bruising, Easy bleeding Physical Exam Vital Signs/Narrative: Vital Signs Temp Pulse Resp BP Pulse Ox 06/09/20 12:00 97.8 F 83 20 H 169/97 H 100 Inital Vital Signs reviewed: Yes General: Well nourished, No Acute Distress Head: Normocephalic, Atraumatic Eyes: Perrl. Negative for: Pale conjunctiva ENT: Moist mucous membranes. Negative for: No rhinorrhea Cardiovascular: Regular rate, Regular rhythm Respiratory: No distress, CTA bilaterally, Chest nontender Abdomen: Soft - Is to palpation in epigastrium which is mild. Abdomen is non-peritoneal. Extremities: Nontender, No edema Skin: Normal color, No rash Neurological: Alert, Oriented x3 Psychological: Normal affect Diagnostic/Tx/Re-eval Chest X-Ray - ED: 1 View Clinical Impression(s) from Imaging Studies Chest CTA 06/09/20 12:24 IMPRESSION: Hyperinflation. The lungs are clear. No evidence of pulmonary embolism. Electronically Signed: Scott Jorge, at 14:01 EDT , Service support , Chest X-Ray 06/09/20 12:48 IMPRESSION: Hyperinflation. The lungs are clear. Electronically Signed: Scott Jorge, at 13:10 EDT , Service support , Laboratory Data 06/09/20 06/09/20 06/09/20 12:47 12:47 12:50 WBC 6.2 RBC 4.70 Hgb 14.5 Hct 43.0 MCV 91.5 MCH 30.9 MCHC 33.7 RDW Std Deviation 40.4 RDW Coeff of Rosalina 12.3 Plt Count 208 MPV 8.9 Immature Gran % (Auto) 0.500 Neut % (Auto) 72.7 H Lymph % (Auto) 16.3 L [place] % (Auto) 9.4 Eos % (Auto) 0.6 Baso % (Auto) 0.5 Absolute Neuts (auto) 4.5 Absolute Lymphs (auto) 1.01 Nucleated RBC % 0 Sodium 143 Potassium 3.6 Chloride 108 H Carbon Dioxide 30.0 Anion Gap 5 BUN 18 Creatinine 0.98 Estim Creat Clear Calc 33.40 Est GFR (MDRD) Af Amer 70 Est GFR (MDRD) Non-Af 58 L BUN/Creatinine Ratio 18.3 Glucose 90 Calcium 9.8 Total Bilirubin 0.70 Direct Bilirubin 0.16 AST 20 ALT 28 Alkaline Phosphatase 60 Troponin I < 0.015 Total Protein 7.6 Albumin 3.8 Globulin 3.8 Lipase 259 TSH 2.28 Urine Color Yellow Urine Clarity Clear Urine pH 8.0 Ur Specific [place] 1.015 Urine Protein Negative Urine Glucose (UA) Normal Urine Ketones Negative Urine Occult Blood Negative Urine Nitrite Negative Urine Bilirubin Negative Urine Urobilinogen Normal Ur Leukocyte Esterase Negative Urine RBC 0-5 SEEN Urine WBC 0 SEEN Ur Squamous Epith Cells 0 SEEN Urine Bacteria 0 SEEN Urine Mucus 0 SEEN - Rhythm Strip Rhythm Strip: Sinus Rhythm Rate: 76 - EKG Initial EKG Interpretation: Sinus Rhythm, No Acute Injury Pattern - Medical Decision Making Presents with dyspepsia and bloating. Initially she stated that she had not had anything different in her diet. She did have a cardiac work-up which was negative. She had a negative chest x-ray and a negative CTA. Her enzymes and lipase are normal. Urinalysis is negative. After discussing her normal work-up she did tell me that she major large batch of Gazpacho yesterday which she had been eaten twice and this is possibly the cause of her symptoms. Improved right now. I believe she safe to be discharged home. Impression: 1 dyspepsia 2. Bloating 3. Epigastric pain ED Disposition - Plan for ED Patient: Referrals: Lopez Morel DO [Primary Care Provider] -
--- NOTE | 2020-06-09 12:24 | EKG12_ITS ---
Test Reason : Blood Pressure : / mmHG Vent. Rate : 076 BPM Atrial Rate : 076 BPM P-R Int : 124 ms QRS Dur : 074 ms QT Int : 384 ms P-R-T Axes : 057 037 063 degrees QTc Int : 432 ms Normal sinus rhythm Normal ECG Confirmed by WEI FERMIN ([id number]), assignment desk editor ANISH SUTHERLAND ([id number]) on 06/11/2020 11:16:18 AM Referred By: MAHIN Confirmed By:WEI FERMIN
--- NOTE | 2020-06-09 12:24 | CT_ITS ---
STUDY: CTA CHEST REASON FOR EXAM: Female, 84 years old. CHEST AND ABDOMINAL PAIN, WEAKNESS, INCREASED GAS RADIATION DOSAGE (If Supplied By Facility): CTDIvol = ( 4.72 ) mGy, DLP = ( 119.32 ) mGycm TECHNIQUE: The examination was performed with the intravenous administration of IV 100mL Isovue-370. Post-processing of the angiographic images was performed, with multiplanar reformation and 3D reconstruction. Individualized dose optimization techniques were used for this CT. COMPARISON: None. FINDINGS: Normal enhancement of the main pulmonary artery and right and left pulmonary arteries. Normal enhancement of the bilateral peripheral pulmonary arteries. There is no demonstrated pulmonary embolism. Normal thoracic aorta and visualized great vessels. There is no demonstrated aortic dissection. Normal heart and pericardium. Normal mediastinum. Normal hilar regions. Normal visualized trachea and bronchi. Hyperinflation. Normal pulmonary parenchyma. Normal pleura. Normal chest wall structures. There are degenerative changes of thoracic spine. Nonobstructive left intrarenal calculi. CT/CTA Chest W/WO Contrast IMPRESSION: Hyperinflation. The lungs are clear. No evidence of pulmonary embolism. Electronically Signed: Scott Patel, at 14:01 EDT , Service support ,
[2020-06-09 12:35] VITALS: O2SAT 98
--- NOTE | 2020-06-09 12:48 | RAD_ITS ---
STUDY: X-RAY CHEST REASON FOR EXAM: Female, 84 years old. GENERALIZED ILLNESS, WEAKNESS TECHNIQUE: Single AP portable view of the chest. COMPARISON: Comparison is made with prior examination dated 03-19-20. FINDINGS: EKG electrodes are seen. Hyperinflation. The lungs are clear. There is no demonstrated pleural abnormality. Normal size heart. Normal mediastinum and isaias. Normal visualized pulmonary arteries. Normal visualized aortic arch and descending thoracic aorta. There are mild degenerative changes of the visualized thoracic spine. Normal visualized ribs, clavicles, and shoulders. There is no demonstrated abnormality of the visualized soft tissue structures of the upper abdomen. RAD/Chest 1 View (Portable) IMPRESSION: Hyperinflation. The lungs are clear. Electronically Signed: Scott Patel, at 13:10 EDT , Service support ,
[2020-06-09 12:56] LABS: Bacteria 0 SEEN /hpf (None Seen); Mucous, Urine 0 SEEN /hpf (<or=2+); Squamous Epithelial Cells - UA 0 SEEN /hpf (5-10); White Blood Cells 0 SEEN /hpf (0-5)
[2020-06-09] MEDS: Ondansetron 4 MG/2 ML Vial IV (12:56)
[2020-06-09 13:00] LABS: Color, Urine Yellow (Yellow); Glucose, Dipstick Normal (Normal); Ketone-Dipstick Negative (Negative); Leukocyte Esterase-Dipstick Negative /ul (Negative); Nitrite-Dipstick Negative (Negative); Occult Blood-Urine Negative /ul (Negative); Protein-Dipstick Negative (Negative); Specific Gravity, Urine 1.015 (1.002-1.030); Urine Bilirubin Dipstick Negative (Negative); Urine Clarity Clear (Clear); Urine Urobilinogen Normal (Normal)
[2020-06-09 13:07] LABS: Absolute Lymphocyte Count 1.01 X10^3/uL (0.83-4.51); Absolute Neutrophil Count 4.5 X10^3/uL (2.0-7.7); Basophil# 0.03 X10^3/uL; Basophil% 0.5 % (0-1); Eosinophil# 0.04 X10^3/uL; Eosinophils% 0.6 % (0-5); Hemoglobin 14.5 g/dL (12.0-15.0); Lymphocyte # 1.01 X10^3/ul (4.0); Lymphocyte % 16.3 % (19-41); Mean Corp Hgb Conc 33.7 g/dL (32-36); Mean Corpuscular Hgb 30.9 pg (27.0-32.0); Mean Corpuscular Volume 91.5 fL (81-99); Mean Platelet Vol. 8.9 fl (6.2-12.0); Monocyte# 0.58 X10^3/uL; Monocyte% 9.4 % (0-10); NRBC Flagged by Analyzer 0 % (0-5); Neutrophil % 72.7 % (47-70); Platelet Count 208 K/mm3 (150-450); RBC Distribution Width CV 12.3 % (11.6-14.6); RBC Distribution Width SD 40.4 fl (35.1-43.9); White Blood Count 6.2 K/mm3 (4.4-11.0)
[2020-06-09 13:08] LABS: Red Blood Cells-Urine 0-5 SEEN /hpf (0-5)
[2020-06-09 13:20] LABS: AST(SGOT) 20 U/L (15-37); Alanine Aminotransfer ALT/SGPT 28 U/L (13-56); Albumin, Serum 3.8 g/dL (3.2-5.0); Alkaline Phosphatase 60 U/L (45-117); Anion Gap 5 (5-15); BUN 18 mg/dL (7-18); BUN/Creat Ratio 18.3 RATIO (10-20); Bilirubin, Direct 0.16 mg/dL (0.00-0.30); Calcium,Total 9.8 mg/dL (8.5-10.1); Chloride 108 mmol/L (98-107); Creatinine, Serum 0.98 mg/dL (0.55-1.02); EST Glomerular Filtration Rate 58 mL/min (>60); Est Glom Filt Rate - Afr Amer 70 mL/min (>60); Globulin 3.8 g/dL (2.2-4.2); Glucose 90 mg/dL (74-106); Lipase 259 U/L (73-393); Potassium 3.6 mmol/L (3.5-5.1); Protein, Total 7.6 g/dL (6.4-8.2); Sodium Level 143 mmol/L (136-145); Thyroid Stim Hormone (TSH) 2.28 uIU/mL (0.358-3.74)
[2020-06-09 14:27] VITALS: BP 134/67; PULSE 59; RESP 15; O2SAT 95
[2020-06-09 15:45] VITALS: BP 128/78; PULSE 70; RESP 16; O2SAT 98
== END 2020-06-09 15:47 | disposition home or self-care (01) ==
PROVIDERS: Emergency Provider Student in an Organized Health Care Education/Training Program; PCP Student in an Organized Health Care Education/Training Program
DX: R10.13 Epigastric pain (principal); R14.0 Abdominal distension (gaseous); Z87.891 Personal history of nicotine dependence; E03.9 Hypothyroidism, unspecified; M81.0 Age-related osteoporosis without current pathological fracture; Z79.899 Other long term (current) drug therapy
CPT/HCPCS: 71045; 71275; 80048; 80076; 81001; 83690; 84443; 84484; 85025; 93005; 96361; 96374; 99284; J7040; Q9967; A4216; J2405

== ENCOUNTER 2020-08-02 04:01 | Emergency (ER) | payer MEDICARE, SELFPAY ==
[2020-01-27 11:19] VITALS: BMI 21.2
[2020-08-02 04:02] VITALS: BP 132/115; PULSE 75; RESP 15; TEMP 36; O2SAT 100; BMI 22.7
--- NOTE | 2020-08-02 04:17 | EKG12_ITS ---
Test Reason : VOMITING Blood Pressure : / mmHG Vent. Rate : 059 BPM Atrial Rate : 059 BPM P-R Int : 134 ms QRS Dur : 088 ms QT Int : 454 ms P-R-T Axes : 043 034 059 degrees QTc Int : 449 ms Sinus bradycardia Otherwise normal ECG Confirmed by JACQUELYN HALL, RADHA ([id number]), department editor JOAN ELLISON ([id number]) on 08/04/2020 1:23:21 PM Referred By: LOUIE Confirmed By:RADHA VALLADARES MD
[2020-08-02 04:31] LABS: Absolute Lymphocyte Count 2.21 X10^3/uL (0.83-4.51); Absolute Neutrophil Count 2.3 X10^3/uL (2.0-7.7); Basophil# 0.03 X10^3/uL; Basophil% 0.6 % (0-1); Eosinophil# 0.11 X10^3/uL; Eosinophils% 2.1 % (0-5); Hematocrit 39.6 % (37-47); Hemoglobin 13.7 g/dL (12.0-15.0); Lymphocyte # 2.21 X10^3/ul (4.0); Lymphocyte % 42.3 % (19-41); Mean Corp Hgb Conc 34.6 g/dL (32-36); Mean Corpuscular Hgb 30.4 pg (27.0-32.0); Mean Platelet Vol. 8.5 fl (6.2-12.0); Monocyte# 0.52 X10^3/uL; NRBC Flagged by Analyzer 0 % (0-5); Neutrophil # 2.34 X10^3/uL (2.7-7.7); Neutrophil % 44.8 % (47-70); Platelet Count 211 K/mm3 (150-450); RBC Distribution Width CV 11.9 % (11.6-14.6); RBC Distribution Width SD 38.3 fl (35.1-43.9); White Blood Count 5.2 K/mm3 (4.4-11.0)
[2020-08-02] MEDS: 0.9% Normal Saline 1,000 ML 1000 ML IV (04:34)
[2020-08-02] MEDS: Ondansetron 4 MG/2 ML Vial IV ×2 (04:35→06:07)
[2020-08-02 04:49] LABS: AST(SGOT) 26 U/L (15-37); Alanine Aminotransfer ALT/SGPT 29 U/L (13-56); Albumin, Serum 3.5 g/dL (3.2-5.0); Alkaline Phosphatase 57 U/L (45-117); Anion Gap 10 (5-15); BUN 18 mg/dL (7-18); BUN/Creat Ratio 18.8 RATIO (10-20); Calcium,Total 9.5 mg/dL (8.5-10.1); Chloride 106 mmol/L (98-107); Creatinine, Serum 0.96 mg/dL (0.55-1.02); EST Glomerular Filtration Rate 59 mL/min (>60); Est Glom Filt Rate - Afr Amer 72 mL/min (>60); Estimated Creatinine Clearance 33.51 ml/min; Globulin 3.6 g/dL (2.2-4.2); Glucose 141 mg/dL (74-106); Lipase 229 U/L (73-393); Potassium 3.2 mmol/L (3.5-5.1); Protein, Total 7.1 g/dL (6.4-8.2); Sodium Level 141 mmol/L (136-145)
[2020-08-02] MEDS: LORazepam 2 MG/ML Syringe 1 MG IV (06:07)
[2020-08-02] MEDS: 0.9% Normal Saline 1,000 ML 150 ML IV (06:09)
[2020-08-02 06:27] LABS: Bacteria 0 SEEN /hpf (None Seen); Mucous, Urine 0 SEEN /hpf (<or=2+); Red Blood Cells-Urine 0 SEEN /hpf (0-5); Squamous Epithelial Cells - UA 0 SEEN /hpf (5-10); White Blood Cells 0 SEEN /hpf (0-5)
[2020-08-02 06:30] LABS: Glucose, Dipstick Normal (Normal); Ketone-Dipstick Negative (Negative); Leukocyte Esterase-Dipstick Negative /ul (Negative); Nitrite-Dipstick Negative (Negative); Occult Blood-Urine Negative /ul (Negative); Protein-Dipstick Negative (Negative); Urine Bilirubin Dipstick Negative (Negative); Urine Urobilinogen Normal (Normal)
[2020-08-02 06:32] VITALS: O2SAT 78
[2020-08-02 06:33] VITALS: O2SAT 94
--- NOTE | 2020-08-02 06:34 | ED.RN ---
scanned valium pill, pt decided she didn't want it due to nausea. obtained new order from dr arcos for iv ativan. valium wasted with charge nurse Gale massey rn
[2020-08-02 06:45] LABS: Color, Urine Yellow (Yellow); Urine Clarity Clear (Clear)
[2020-08-02 06:48] LABS: Amorphous Sediment 1+
--- NOTE | 2020-08-02 07:01 | ED.DCSUM_ITS ---
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 When she sat up she states that the room was spinning and she got very nauseated. She made it back to her bed and laid down feeling better but then the room started spinning again. EMS was called. She states that this is never happened to her before. She states that her whole body is tingling. She tells me she cannot talk to me because her mouth is dry. <Kenneth Houser - Last Filed: 08/02/20 07:01> <Silvestre Broussard - Last Filed: 08/02/20 14:00> Chief Complaint: Nausea/Vomiting Past Medical History Prior records reviewed: Yes Surgical History: noncontributory Smoking Status: Never smoker <Kenneth Houser - Last Filed: 08/02/20 07:01> <Silvestre Broussard - Last Filed: 08/02/20 14:00> - Allergies and Home Meds Allergies/Adverse Reactions: Allergies alendronate sodium [From Fosamax] Allergy (Verified 08/02/20 04:14) Unknown amoxicillin Allergy (Verified 08/02/20 04:14) Unknown doxycycline Allergy (Verified 08/02/20 04:14) Unknown erythromycin base Allergy (Verified 08/02/20 04:14) Unknown tetracycline Allergy (Verified 08/02/20 04:14) Unknown Primary Care Physician: Lopez Morel DO [Primary Care Provider] - Review of Systems General: Denies: Chills, Fever, Sweats Eyes: Denies: Visual changes - bilaterally, Diplopia ENT: Denies: Rhinorrhea, Sore throat Cardiovascular: Denies: Chest pain, Palpitations Respiratory: Denies: Dyspnea, Cough, Dyspnea on exertion Gastrointestinal: Reports: Nausea, Vomiting. Denies: Abdominal pain, Diarrhea, Melena, Hematochezia Genitourinary: Denies: Dysuria, Hematuria, Frequency Musculoskeletal: Denies: Back pain, Extremity Pain Skin: Denies: Rash, Wounds Neurological: Reports: - - Dizziness. Denies: Headache, Weakness, Numbness <Kenneth Houser - Last Filed: 08/02/20 07:01> Physical Exam Vital Signs/Narrative: Vital Signs Temp Pulse Resp BP Pulse Ox 09/20/20 06:33 94 08/02/20 06:32 78 08/02/20 04:02 96.8 F L 75 15 132/115 H 100 Inital Vital Signs reviewed: Yes General: Well nourished, Well developed, No Acute Distress Head: Normocephalic, Atraumatic Eyes: Perrl, EOMI, - - Nystagmus present ENT: Moist mucous membranes, No rhinorrhea Neck: Supple, Nontender Cardiovascular: Regular rate, Regular rhythm, No murmurs Respiratory: CTA bilaterally, Chest nontender, - - Patient is tachypneic but not in distress Abdomen: Soft, Nontender, Nondistended, Normal bowel sounds Back: Nontender, Normal Inspection Extremities: Nontender, No edema Skin: Normal color, No rash Neurological: Alert, Oriented x3, Cranial nerves II-XII grossly intact, Normal Strength, Normal Sensation, - - Positive Osiris-Hallpike Psychological: - - Anxious <Kenneth Houser - Last Filed: 08/02/20 07:01> Vital Signs/Narrative: Vital Signs Pulse BP Pulse Ox 08/02/20 11:45 70 123/71 H 98 <Silvestre Broussard - Last Filed: 08/02/20 14:00> Diagnostic/Tx/Re-eval Laboratory Last Values WBC 5.2 K/mm3 (4.4-11.0) 08/02/20 04:25 RBC 4.50 M/mm3 (4.2-5.4) 08/02/20 04:25 Hgb 13.7 g/dL (12.0-15.0) 08/02/20 04:25 Hct 39.6 % (37-47) 08/02/20 04:25 MCV 88.0 fL (81-99) 08/02/20 04:25 MCH 30.4 pg (27.0-32.0) 08/02/20 04:25 MCHC 34.6 g/dL (32-36) 08/02/20 04:25 RDW Std Deviation 38.3 fl (35.1-43.9) 08/02/20 04:25 RDW Coeff of Rosalina 11.9 % (11.6-14.6) 08/02/20 04:25 Plt Count 211 K/mm3 (150-450) 08/02/20 04:25 MPV 8.5 fl (6.2-12.0) 08/02/20 04:25 Immature Gran % (Auto) 0.200 % (0.0-0.9) 08/02/20 04:25 Neut % (Auto) 44.8 % (47-70) L 08/02/20 04:25 Lymph % (Auto) 42.3 % (19-41) H 08/02/20 04:25 [place] % (Auto) 10.0 % (0-10) 08/02/20 04:25 Eos % (Auto) 2.1 % (0-5) 08/02/20 04:25 Baso % (Auto) 0.6 % (0-1) 08/02/20 04:25 Absolute Neuts (auto) 2.3 X10^3/uL (2.0-7.7) 08/02/20 04:25 Absolute Lymphs (auto) 2.21 X10^3/uL (0.83-4.51) 08/02/20 04:25 Nucleated RBC % 0 % (0-5) 08/02/20 04:25 Sodium 141 mmol/L (136-145) 08/02/20 04:25 Potassium 3.2 mmol/L (3.5-5.1) L 08/02/20 04:25 Chloride 106 mmol/L (98-107) 08/02/20 04:25 Carbon Dioxide 25.0 mmol/L (21.0-32.0) 08/02/20 04:25 Anion Gap 10 (5-15) 08/02/20 04:25 BUN 18 mg/dL (7-18) 08/02/20 04:25 Creatinine 0.96 mg/dL (0.55-1.02) 08/02/20 04:25 Estim Creat Clear Calc 33.51 ml/min 08/02/20 04:25 Est GFR (MDRD) Af Amer 72 mL/min (>60) 08/02/20 04:25 Est GFR (MDRD) Non-Af 59 mL/min (>60) L 08/02/20 04:25 BUN/Creatinine Ratio 18.8 RATIO (10-20) 08/02/20 04:25 Glucose 141 mg/dL (74-106) H 08/02/20 04:25 Calcium 9.5 mg/dL (8.5-10.1) 08/02/20 04:25 Total Bilirubin 0.40 mg/dL (0.20-1.00) 08/02/20 04:25 AST 26 U/L (15-37) 08/02/20 04:25 ALT 29 U/L (13-56) 08/02/20 04:25 Alkaline Phosphatase 57 U/L (45-117) 08/02/20 04:25 Total Protein 7.1 g/dL (6.4-8.2) 08/02/20 04:25 Albumin 3.5 g/dL (3.2-5.0) 08/02/20 04:25 Globulin 3.6 g/dL (2.2-4.2) 08/02/20 04:25 Albumin/Globulin Ratio 1.0 RATIO (0.9-2.4) 08/02/20 04:25 Lipase 229 U/L (73-393) 08/02/20 04:25 Urine Color Yellow (Yellow) 08/02/20 06:22 Urine Clarity Clear (Clear) 08/02/20 06:22 Urine pH 8.0 (5.0 - 8.0) 08/02/20 06:22 Ur Specific [place] 1.010 (1.002-1.030) 08/02/20 06:22 Urine Protein Negative mg/dl (Negative) 08/02/20 06:22 Urine Glucose (UA) Normal mg/dl (Normal) 08/02/20 06:22 Urine Ketones Negative mg/dl (Negative) 08/02/20 06:22 Urine Occult Blood Negative /ul (Negative) 08/02/20 06:22 Urine Nitrite Negative (Negative) 08/02/20 06:22 Urine Bilirubin Negative mg/dL (Negative) 08/02/20 06:22 Urine Urobilinogen Normal mg/dl (Normal) 08/02/20 06:22 Ur Leukocyte Esterase Negative /ul (Negative) 08/02/20 06:22 Urine RBC 0 SEEN /hpf (0-5) 08/02/20 06:22 Urine WBC 0 SEEN /hpf (0-5) 08/02/20 06:22 Ur Squamous Epith Cells 0 SEEN /hpf (5-10) 08/02/20 06:22 Amorphous Sediment 1+ 08/02/20 06:22 Urine Bacteria 0 SEEN /hpf (None Seen) 08/02/20 06:22 Urine Mucus 0 SEEN /hpf (<or=2+) 08/02/20 06:22 - EKG Initial EKG Interpretation: Sinus Rhythm - EKG demonstrates a sinus bradycardia at a rate of 59 with no concerning features of ACS - Medical Decision Making She received IV fluids and Zofran. I gave her Ativan as she was unable to tolerate p.o. Valium. Basic labs were negative. Head CT is pending. I believe that this is peripheral vertigo. Patient will be reassessed prior to disposition. <Kenneth Houser - Last Filed: 08/02/20 07:01> - Medical Decision Making Patient was observed for several hours afterwards where she slept in bed. CT brain was negative. She was able to ambulate to the bathroom without return of her dizziness. She did state that she felt a little unsteady because of the medication. She will have her daughter come pick her up and stay with her so she can rest. Patient was given a prescription for meclizine for home. Patient is given return precautions. She is stable for discharge. <Silvestre Broussard - Last Filed: 08/02/20 14:00> ED Disposition <Kenneth Houser - Last Filed: 08/02/20 07:01> <Silvestre Broussard - Last Filed: 08/02/20 14:00> - Plan for ED Patient: Disposition: Home or Assisted Living Instructions: ED Vertigo Unspecified Prescriptions: Meclizine HCl 25 mg PO Q8H PRN PRN #30 tab.chew PRN Reason: Dizziness Transmission Status: Received by [facility][id number] Referrals: Lopez Morel DO [Primary Care Provider] -
--- NOTE | 2020-08-02 07:01 | CT_ITS ---
STUDY: CT BRAIN WITHOUT CONTRAST REASON FOR EXAM: Female, 85 years old. DIZZY RADIATION DOSAGE (If Supplied By Facility): CTDIvol = ( 44.99 ) mGy, DLP = ( 779.24 ) mGycm TECHNIQUE: Transaxial CT imaging of the brain was performed without administration of intravenous contrast material. Individualized dose optimization techniques were used for this CT. COMPARISON: 03/19/2020 FINDINGS: Normal soft tissue structures. Normal calvarium. There is mild cerebral atrophy with widening of the extra-axial spaces and ventricular dilatation. There are areas of decreased attenuation within the white matter tracts of the supratentorial brain, consistent with microvascular disease changes. Normal basal ganglia and thalami. Normal brainstem. Normal cerebellum. There is no intracranial hemorrhage. There are no findings of an acute ischemic infarction. Normal visualized paranasal sinuses. CT/Brain/Head without Contrast IMPRESSION: Chronic involutional changes of the brain. Electronically Signed: Miles Fernández MD at 10:41 EDT Tel , Service support ,
[2020-08-02 08:07] VITALS: BP 110/71; PULSE 61; RESP 17; O2SAT 100
[2020-08-02 11:45] VITALS: BP 123/71; PULSE 70; O2SAT 98
[2020-08-02 13:56] VITALS: BP 138/86; PULSE 79; RESP 18; O2SAT 98
--- NOTE | 2020-08-02 13:56 | ED.RN ---
THIS NURSE HELPED THE PT AMBULATE AROUND THE ROOM. PT REPORTS NO DIZZINESS. PT SLIGHTLY UNSTEADY BUT I DID NOT NEED TO HOLD ON TO THE PT. JUST STANDBY ASSIST. PT ATTEMPTING TO CONTACT DAUGHTER TO PICK HER UP AND STAY WITH HER AT HOME FOR A LITTLE BIT. PT WILL LET US KNOW
== END 2020-08-02 15:56 | disposition home or self-care (01) ==
PROVIDERS: Emergency Provider Emergency Medicine; PCP Student in an Organized Health Care Education/Training Program
DX: R11.2 Nausea with vomiting, unspecified (principal); R42 Dizziness and giddiness
CPT/HCPCS: 70450; 80053; 81001; 83690; 85025; 93005; 96361; 96374; 96375; 96376; 99285; J7030; A4216; J2405

== ENCOUNTER 2021-03-11 02:12 | Emergency (ER) | payer MEDICARE, SELFPAY ==
[2020-01-27 11:19] VITALS: BMI 21.2
[2021-03-11 02:20] VITALS: BP 134/81; PULSE 66; RESP 20; TEMP 36.7; O2SAT 96; BMI 22.8
--- NOTE | 2021-03-11 02:50 | CT_ITS ---
STUDY: CT BRAIN WITHOUT CONTRAST REASON FOR EXAM: Female, 85 years old. vertigo RADIATION DOSAGE (If Supplied By Facility): CTDIvol = ( 44.99 ) mGy, DLP = ( 779.24 ) mGycm TECHNIQUE: Transaxial CT imaging of the brain was performed without administration of intravenous contrast material. Individualized dose optimization techniques were used for this CT. COMPARISON: August 02, 2020. FINDINGS: Normal soft tissue structures. Normal calvarium. Normal size ventricles and extra-axial spaces for the patient''s age. Normal white matter tracts of the cerebral hemispheres. Normal basal ganglia and thalami. Normal brainstem. Normal cerebellum. Partially empty sella. There is no intracranial hemorrhage. There are no findings of an acute ischemic infarction. Normal visualized paranasal sinuses. Mastoid air cells are well aerated. CT/Brain/Head without Contrast IMPRESSION: No acute intracranial abnormality. Electronically Signed: Gilles Klein MD at 4:58 EDT , Service support ,
--- NOTE | 2021-03-11 02:50 | EKG12_ITS ---
Test Reason : DIZZINESS Blood Pressure : / mmHG Vent. Rate : 061 BPM Atrial Rate : 061 BPM P-R Int : 136 ms QRS Dur : 078 ms QT Int : 460 ms P-R-T Axes : 058 018 051 degrees QTc Int : 463 ms Normal sinus rhythm Normal ECG Confirmed by ALVIN HALL, TENZIN ([id number]), multimedia editor ENID WHITTAKER ([id number]) on 03/12/2021 10:05:15 AM Referred By: WENDY Confirmed By:TENZIN ESQUIVEL MD
--- NOTE | 2021-03-11 02:52 | EX.ED.DYSGE1 ---
HPI History of Present Illness Chief Complaint: Dizziness Informant: patient Onset/Context/Timing Onset: Hours (2-3) Timing: Intermittent and Lasts (minutes) Quality: spinning Location: head Current Severity: Gone Maximum Severity: Severe Worsened by: lying supine Relieved by: sitting up and waiting Associated Symptoms Associated Symptoms: n/v, blurred vision Narrative Narrative: Patient states she sat down on her bed and she felt unusual and poor and was tired however it was around midnight. Her vision became out of focus without diplopia which was very unusual. She laid down and then felt worse, set up and noticed that she was spinning which then turned into vomiting. After sitting still it eventually went away. Turning her head does not seem to make a difference. She denies any headache, loss of consciousness, tinnitus, earache, recent illness, fall or recent injury. States she had vertigo once in the past but it did not necessarily feel like this. It felt like she was falling. She did feel off balance tonight. She lives alone and became concerned and came to the ER. She denies a history of stroke. She denies taking any antiplatelet or anticoagulants. [facility] Medical History (Updated 03/11/21 @ 04:[address] Bill Shen MD) Hypoparathyroidism Osteoporosis Home Medications levothyroxine [Synthroid] 50 mcg PO MOTUWETHFRSA 06/27/18 [History Last Taken 06/09/20] calcitriol 0.5 mcg PO DAILY 06/09/20 [History Last Taken 06/08/20] calcium carbonate-vitamin D3 1 tab PO DAILY 06/09/20 [History Last Taken 06/08/20] levothyroxine 25 mcg PO SON 06/09/20 [History Last Taken 06/07/20] syitxrpx-bae-uugq-FA-lutein 1 tab PO DAILY 06/09/20 [History Last Taken 06/08/20] meclizine 25 mg PO TID PRN #20 tab 03/11/21 [Rx Last Taken Unknown] ondansetron 8 mg PO Q8H PRN PRN #14 tab 03/11/21 [Rx Last Taken Unknown] Allergy/AdvReac Type Severity Reaction Status Date / Time alendronate sodium Allergy Unknown Verified 03/11/21 02:29 [From Fosamax] amoxicillin Allergy Unknown Verified 03/11/21 02:29 doxycycline Allergy Unknown Verified 03/11/21 02:29 erythromycin base Allergy Unknown Verified 03/11/21 02:29 tetracycline Allergy Unknown Verified 03/11/21 02:29 Family History (Updated 01/27/20 @ 11:22 by Anna Christian RN) Mother Breast cancer Sister Breast cancer Sister Breast cancer Daughter Breast cancer Surgical History (Updated 03/11/21 @ 02:28 by Isaura Dunaway) Status post Mohs surgery Social History Smoking Status: Never smoker ROS ROS ED Constitutional Constitutional ED: Denies chills or fever(s) Eyes Eyes: Denies change in vision or diplopia ENT ENT ED: Denies rhinorrhea or sore throat Cardiovascular Cardiovascular: Denies chest pain or palpitations Respiratory/Chest Respiratory/Chest: Denies cough or dyspnea Gastrointestinal Gastrointestinal: Reports abdominal pain, nausea and vomiting; Denies diarrhea Genitourinary Genitourinary ED: Denies dysuria or hematuria Musculoskeletal Musculoskeletal: Denies back pain or neck pain Integumentary Denies abscess or rash Neurologic Neurologic: Reports dizziness; Denies headache(s) or weakness Psychiatric Psychiatric: Denies anxiety or suicidal thoughts EXAM Physical Exam Const Vital Signs: 03/11/21 02:20 03/11/21 04:15 03/11/21 05:04 Temperature 98.0 F Temperature Source Temporal Pulse Rate 66 59 L 76 Respiratory Rate 20 H 16 16 Blood Pressure 134/81 H 116/99 H Blood Pressure Mean 98 104 Pulse Ox 96 98 96 Oxygen Delivery Method Room Air Room Air Positive well nourished and well developed General Appearance ED: well developed and NAD HEENT Reports moist mucous membranes normocephalic and atraumatic Eyes PERRL and EOMs intact bilaterally Neck full ROM and supple Resp normal respiratory effort and clear to auscultation bilaterally Cardio regular rate, regular rhythm and no murmurs GI non-distended Auscultation: normoactive bowel sounds Palpation: soft and tender epigastric (Mild. Otherwise nontender.) Back/Spine no CVA tenderness General Back: other FROM Extremity normal to inspection General Extremety ED: Negative for edema, pulses abnormal or tenderness General Extremity: Negative for edema or pulses abnormal Neuro oriented x3, CN's II-XII intact bilaterally, no focal motor deficits and no sensory deficits noted Neuro Narrative: Patient does have subjective paresthesias everywhere. NIHSS 0. Sensorium / Orientation: awake and alert Coordination / Balance: wyanux-cg-[id number] test normal and [id number] test normal Speech: speech normal; Negative for expressive aphasia or receptive aphasia Motor Exam: strength 5/5 throughout Skin no rashes or lesions noted and no wounds MDM MDM MDM Narrative Medical decision making narrative: Given intermittent nature of symptoms, and the fact that when I light her back to examine her abdomen, her vertiginous symptoms and blurry vision were immediately triggered, I do not think this is stroke/central in origin. She was given meclizine, Zofran, and a work-up was performed including CT of the head which was negative for anything acute. She was able to lie down, still getting some blurry vision and mild vertiginous symptoms, but not to the same severity, improved after the medications. She was offered admission for symptoms which I suspect are peripheral vertigo in nature, she declines and wants to go home. This was around 4:30 AM that I had further discussion with her, she states she does not have a ride home right now prefers not to take a taxi so she was offered short period of observation so she could rest until morning when she could call a friend for a ride home. She states she has an MRI of the brain and cervical spine scheduled for around 2 weeks from now. She chronically gets tingling down both sides of her body, sometimes one is worse than the other, that may be associated with some neck pain she is having, and this has been going on for a while. She also states that intermittently she will look at the TV and get blurry vision similar to what happened tonight, but not necessarily with the vertigo symptoms. She has had double vision once but that was not tonight and was not associated with the symptoms. I do not think she needs CTA for any type of cerebral aneurysm emergently. She is comfortable at the time of reevaluation and sitting, turning her head asymptomatic, and is ambulatory to and from the restroom in the department doing well with good stability while walking. Lab Data Attestation: I reviewed the patient's lab results. Labs: Laboratory Results - last 24 hr 03/11/21 03/11/21 02:20 02:20 WBC 4.6 RBC 4.64 Hgb 13.9 Hct 40.7 MCV 87.7 MCH 30.0 MCHC 34.2 RDW Std Deviation 38.5 RDW Coeff of Rosalina 12.0 Plt Count 219 MPV 9.0 Immature Gran % (Auto) 0.400 Neut % (Auto) 56.7 Lymph % (Auto) 30.4 [place] % (Auto) 10.5 H Eos % (Auto) 1.3 Baso % (Auto) 0.7 Absolute Neuts (auto) 2.6 Absolute Lymphs (auto) 1.39 Nucleated RBC % 0 Sodium 140 Potassium 3.3 L Chloride 105 Carbon Dioxide 25.0 Anion Gap 10 BUN 17 Creatinine 1.03 H Estim Creat Clear Calc 29.73 Est GFR (MDRD) Af Amer 66 Est GFR (MDRD) Non-Af 54 L BUN/Creatinine Ratio 16.5 Glucose 169 H Calcium 9.3 Total Bilirubin 0.60 AST 20 ALT 25 Alkaline Phosphatase 57 Troponin I < 0.015 Total Protein 7.3 Albumin 3.8 Globulin 3.5 Albumin/Globulin Ratio 1.1 Lipase 154 Radiography Diagnostic Testing: Radiology Impression Brain CT 03/11/21 02:50 IMPRESSION: No acute intracranial abnormality. Electronically Signed: Gilles Klein MD at 4:58 EDT , Service support , EKG Initial EKG: Attestation: I personally reviewed and interpreted this EKG as follows: Interpretation: Sinus Rhythm and No Acute Injury Pattern Comments: normal EKG Discharge Plan Triage Chief Complaint: Dizziness ED Provider: Bill Shen Dx/Rx/DC Orders Clinical Impression: Episodic peripheral vertigo Instructions: ED Vertigo, Unspecified Prescriptions: New meclizine 25 mg tablet 25 mg PO TID PRN (Reason: dizziness or vertigo) Qty: 20 RF: 0 ondansetron 4 mg tablet,disintegrating 8 mg PO Q8H PRN PRN (Reason: Nausea) Qty: 14 RF: 0 No Action levothyroxine [Synthroid] 50 MCG tablet 50 mcg PO MOTUWETHFRSA RF: 0 calcitriol 0.25 MCG capsule 0.5 mcg PO DAILY RF: 0 calcium carbonate-vitamin D3 1 EACH tablet 1 tab PO DAILY RF: 0 xmzmirqj-xgp-wplj-FA-lutein 1 EACH tablet 1 tab PO DAILY RF: 0 levothyroxine 50 MCG tablet 25 mcg PO SON RF: 0 Primary Care Provider: Lopez Morel Referrals: Lopez Morel, DO [Primary Care Provider] - 3-5 Days if not improving Disposition Disposition: Home, self care
[2021-03-11 02:56] LABS: Absolute Lymphocyte Count 1.39 X10^3/uL (0.83-4.51); Absolute Neutrophil Count 2.6 X10^3/uL (2.0-7.7); Basophil# 0.03 X10^3/uL; Basophil% 0.7 % (0-1); Eosinophil# 0.06 X10^3/uL; Eosinophils% 1.3 % (0-5); Hematocrit 40.7 % (37-47); Hemoglobin 13.9 g/dL (12.0-15.0); Lymphocyte # 1.39 X10^3/ul (0.83-4.51); Lymphocyte % 30.4 % (19-41); Mean Corp Hgb Conc 34.2 g/dL (32-36); Mean Corpuscular Volume 87.7 fL (81-99); Monocyte# 0.48 X10^3/uL; Monocyte% 10.5 % (0-10); NRBC Flagged by Analyzer 0 % (0-5); Neutrophil # 2.59 X10^3/uL (2.7-7.7); Neutrophil % 56.7 % (47-70); Platelet Count 219 K/mm3 (150-450); RBC Distribution Width SD 38.5 fl (35.1-43.9); Red Blood Count 4.64 M/mm3 (4.2-5.4); White Blood Count 4.6 K/mm3 (4.4-11.0)
[2021-03-11] MEDS: Ondansetron 4 MG/2 ML Vial IV (02:57)
[2021-03-11] MEDS: Meclizine HCl 25 MG Tablet PO (02:58)
[2021-03-11 03:12] LABS: ALB/GLOB Ratio 1.1 RATIO (0.9-2.4); AST(SGOT) 20 U/L (15-37); Alanine Aminotransfer ALT/SGPT 25 U/L (13-56); Albumin, Serum 3.8 g/dL (3.2-5.0); Alkaline Phosphatase 57 U/L (45-117); Anion Gap 10 (5-15); BUN 17 mg/dL (7-18); BUN/Creat Ratio 16.5 RATIO (10-20); Calcium,Total 9.3 mg/dL (8.5-10.1); Chloride 105 mmol/L (98-107); Creatinine, Serum 1.03 mg/dL (0.55-1.02); EST Glomerular Filtration Rate 54 mL/min (>60); Est Glom Filt Rate - Afr Amer 66 mL/min (>60); Estimated Creatinine Clearance 29.73 ml/min; Globulin 3.5 g/dL (2.2-4.2); Glucose 169 mg/dL (74-106); Lipase 154 U/L (73-393); Potassium 3.3 mmol/L (3.5-5.1); Protein, Total 7.3 g/dL (6.4-8.2); Sodium Level 140 mmol/L (136-145)
[2021-03-11 04:15] VITALS: BP 116/99; PULSE 59; RESP 16; O2SAT 98
[2021-03-11 05:04] VITALS: PULSE 76; RESP 16; O2SAT 96
== END 2021-03-11 08:11 | disposition home or self-care (01) ==
PROVIDERS: Emergency Provider Emergency Medicine; PCP Student in an Organized Health Care Education/Training Program
DX: H81.399 Other peripheral vertigo, unspecified ear (principal); E20.9 Hypoparathyroidism, unspecified; M81.0 Age-related osteoporosis without current pathological fracture; Z79.899 Other long term (current) drug therapy
CPT/HCPCS: 70450; 80053; 83690; 84484; 85025; 93005; 96374; 99285; A4216; J2405

== ENCOUNTER 2021-03-23 13:08 | Emergency (ER) | payer MEDICARE, SELFPAY ==
[2020-01-27 11:19] VITALS: BMI 21.2
[2021-03-23 13:08] VITALS: BP 123/79; PULSE 77; RESP 16; TEMP 36.6; O2SAT 94; BMI 21.7
--- NOTE | 2021-03-23 13:37 | EDS_ITS ---
HPI History of Present Illness Chief Complaint: Numb/Ting Informant: patient Onset/Context/Timing Onset: Hours Context: Sudden Onset Timing: Continuous Quality: Tingling the right side of her head and face Location: Right side of head and face Current Severity: Mild Maximum Severity: Severe Worsened by: Nothing Relieved by: Nothing Associated Symptoms Associated Symptoms: No associated symptoms Narrative Narrative: Patient is a elderly woman who was admitted for vertigo approximately 2 weeks ago. 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 Since the MRI she has had no symptoms other than the intense tingling on the right side of her face that prompted her to come to the emergency department. She states she is not on a diuretic. She denies any visual, ocular auditory sense. She states she has trouble retrieving words but that is a chronic issue has been going on for years. She denies cardiac respiratory symptoms. Denies GI symptoms. She denies trouble with balance or use of arms or legs. Prior similar symptoms: Yes (She states the tingling is more intense today.) Recent Illness/Hospitalization: Yes [facility] Medical History Hypoparathyroidism Osteoporosis Home Medications levothyroxine [Synthroid] 50 mcg PO MOTUWETHFRSA 06/27/18 [History Last Taken 06/09/20] calcitriol 0.5 mcg PO DAILY 06/09/20 [History Last Taken 06/08/20] calcium carbonate-vitamin D3 1 tab PO DAILY 06/09/20 [History Last Taken 06/08/20] levothyroxine 25 mcg PO SON 06/09/20 [History Last Taken 06/07/20] litzxzpl-waw-polu-FA-lutein 1 tab PO DAILY 06/09/20 [History Last Taken 06/08/20] meclizine 25 mg PO TID PRN #20 tab 03/11/21 [Rx Last Taken Unknown] ondansetron 8 mg PO Q8H PRN PRN #14 tab 03/11/21 [Rx Last Taken Unknown] Allergy/AdvReac Type Severity Reaction Status Date / Time alendronate sodium Allergy Unknown Verified 03/23/21 13:11 [From Fosamax] amoxicillin Allergy Unknown Verified 03/23/21 13:11 doxycycline Allergy Unknown Verified 03/23/21 13:11 erythromycin base Allergy Unknown Verified 03/23/21 13:11 tetracycline Allergy Unknown Verified 03/23/21 13:11 Family History Mother Breast cancer Sister Breast cancer Sister Breast cancer Daughter Breast cancer Surgical History Status post Mohs surgery Social History (Updated 03/23/21 @ 13:[address] Feliciano Phan MD) household members: none current occupational exposures/hazards: No Smoking Status: Never smoker details: No recent alcohol use substance use type: does not use ROS ROS ED Constitutional Constitutional ED: Denies chills, fever(s), subjective or sweats Eyes Eyes: Denies blurry vision, change in vision or diplopia ENT ENT ED: Denies ear pain, rhinorrhea or sore throat Cardiovascular Cardiovascular: Denies chest pain or palpitations Respiratory/Chest Respiratory/Chest: Denies cough or dyspnea Gastrointestinal Gastrointestinal: Denies abdominal pain, diarrhea, nausea or vomiting Genitourinary Genitourinary ED: Denies dysuria, hematuria or urinary frequency Musculoskeletal Musculoskeletal: Reports neck pain and other Details: 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 ; Denies arthralgias or myalgias Integumentary Denies rash Neurologic Neurologic: Reports paresthesias; Denies headache(s) or weakness Psychiatric Psychiatric: Reports anxiety EXAM Physical Exam Const Vital Signs: 03/23/21 13:08 Temperature 98 F Temperature Source Temporal Pulse Rate 77 Respiratory Rate 16 Blood Pressure 123/79 H Blood Pressure Mean 93 Pulse Ox 94 Oxygen Delivery Method Room Air Positive well nourished and well developed General Appearance ED: well developed HEENT Reports TM's clear and moist mucous membranes Tympanic Membrane ED: Yes TM's clear Eyes PERRL and EOMs intact bilaterally General Eye ED: Negative for pale conjunctiva or scleral icterus Neck no lymphadenopathy, supple and no JVD Resp normal respiratory effort and clear to auscultation bilaterally Cardio regular rate, regular rhythm, S1 normal heart sound, S2 normal heart sound and no murmurs GI normal to inspection, nondistended, normoactive bowel sounds Back/Spine no CVA tenderness Cervical Spine: cervical spine tenderness Extremity normal to inspection General Extremety ED: Negative for edema or tenderness General Extremity: Negative for edema Neuro oriented x3, CN's II-XII intact bilaterally and no sensory deficits noted Neuro Narrative: No clonus or Babinski sign. No dysmetria. Sensorium / Orientation: alert Motor Exam: strength 5/5 throughout Psych Psych Narrative: Slightly anxious Skin no rashes or lesions noted and no wounds MDM MDM MDM Narrative Medical decision making narrative: Since patient had MRI 1 week ago and had work-up for vertigo 2 weeks ago no imaging was obtained. Obtain electrolyte panel to assess for hyponatremia and/or hypocalcemia. Patient reports has had paresthesias in the past. She has a negative [place] sign to suggest hyperventilation. If electrolytes are unremarkable will discharge to home to follow-up with her primary care physician. Lab Data Attestation: I reviewed the patient's lab results. Labs: Laboratory Results - last 24 hr 03/23/21 14:00 Sodium 143 Potassium 4.0 Chloride 108 H Carbon Dioxide 30.0 Anion Gap 5 BUN 16 Creatinine 0.90 Estim Creat Clear Calc 34.02 Est GFR (MDRD) Af Amer 77 Est GFR (MDRD) Non-Af 64 BUN/Creatinine Ratio 17.8 Glucose 110 H Calcium 9.1 No significant abnormality no abnormality that would explain patient's paresthesias. Discharge Plan Triage Chief Complaint: Numb/Ting ED Provider: Feliciano Phan Dx/Rx/DC Orders Clinical Impression: Facial paresthesia Instructions: ED Paraesthesias Prescriptions: No Action levothyroxine [Synthroid] 50 MCG tablet 50 mcg PO MOTUWETHFRSA RF: 0 calcitriol 0.25 MCG capsule 0.5 mcg PO DAILY RF: 0 calcium carbonate-vitamin D3 1 EACH tablet 1 tab PO DAILY RF: 0 eqgeqvrg-luu-zxcn-FA-lutein 1 EACH tablet 1 tab PO DAILY RF: 0 levothyroxine 50 MCG tablet 25 mcg PO SON RF: 0 meclizine 25 mg tablet 25 mg PO TID PRN (Reason: dizziness or vertigo) Qty: 20 RF: 0 ondansetron 4 mg tablet,disintegrating 8 mg PO Q8H PRN PRN (Reason: Nausea) Qty: 14 RF: 0 Primary Care Provider: Lopez Morel Referrals: Lopez Morel DO [Primary Care Provider] - As Needed Disposition Disposition: Home, self care
[2021-03-23 14:20] LABS: Anion Gap 5 (5-15); BUN 16 mg/dL (7-18); BUN/Creat Ratio 17.8 RATIO (10-20); Calcium,Total 9.1 mg/dL (8.5-10.1); Chloride 108 mmol/L (98-107); EST Glomerular Filtration Rate 64 mL/min (>60); Est Glom Filt Rate - Afr Amer 77 mL/min (>60); Estimated Creatinine Clearance 34.02 ml/min; Glucose 110 mg/dL (74-106); Sodium Level 143 mmol/L (136-145)
[2021-03-23 15:02] VITALS: BP 134/84; PULSE 61; RESP 16; O2SAT 99
== END 2021-03-23 15:04 | disposition home or self-care (01) ==
PROVIDERS: Emergency Provider Emergency Medicine; PCP Student in an Organized Health Care Education/Training Program
DX: R20.2 Paresthesia of skin (principal); E20.9 Hypoparathyroidism, unspecified; M81.0 Age-related osteoporosis without current pathological fracture; Z79.899 Other long term (current) drug therapy
CPT/HCPCS: 80048; 99284; A4216

== ENCOUNTER 2021-07-04 11:18 | Emergency (ER) | payer MEDICARE, SELFPAY ==
[2020-01-27 11:19] VITALS: BMI 21.2
[2021-07-04 11:20] VITALS: BP 144/88; PULSE 77; RESP 32; TEMP 36.6; O2SAT 99; BMI 19.4
--- NOTE | 2021-07-04 11:41 | RAD_ITS ---
STUDY: X-RAY CHEST REASON FOR EXAM: Female, 85 years old. dyspnea TECHNIQUE: Single AP portable view of the chest. COMPARISON: 06/09/2020 FINDINGS: The lungs are clear and expanded. There is no demonstrated pleural abnormality. Normal size heart. Normal mediastinum and isaias. Normal visualized pulmonary arteries. Normal visualized aortic arch and descending thoracic aorta. Normal visualized thoracic spine. Normal visualized ribs, clavicles, and shoulders. There is no demonstrated abnormality of the visualized soft tissue structures of the upper abdomen. RAD/Chest 1 View (Portable) IMPRESSION: Normal x-ray examination of the chest. Electronically Signed: Miles Fernández MD at 13:22 EDT Tel , Service support ,
--- NOTE | 2021-07-04 11:42 | EKG12_ITS ---
Test Reason : SOB Blood Pressure : / mmHG Vent. Rate : 075 BPM Atrial Rate : 075 BPM P-R Int : 080 ms QRS Dur : 076 ms QT Int : 398 ms P-R-T Axes : 076 052 056 degrees QTc Int : 444 ms Sinus rhythm with short AL Nonspecific ST abnormality Abnormal ECG Confirmed by JACQUELYN HALL, RADHA ([id number]), editor department ENID WHITTAKER ([id number]) on 07/08/2021 10:29:35 AM Referred By: SOFÍA Confirmed By:RADHA VALLADARES MD
--- NOTE | 2021-07-04 11:42 | EX.ED.DYSGE1 ---
HPI History of Present Illness Chief Complaint: Shortness of Breath Detail of Chief Complaint: Shortness of breath that started suddenly while in congregational this morning. Informant: patient Narrative Narrative: Patient presents to the emergency department complaint of shortness of breath that started while in congregational this morning. Patient had just walked to her pew and sat down when 70 minutes later started feeling short of breath suddenly. She denies any chest pain. She initially had some numbness and tingling in her face which she attributed to her anxiety. Patient has not felt this way before. She tells me she is been dealing with sciatica issues in her right leg since the beginning of summer that initially got better and then was made worse about a month ago. Patient denies recent travel or surgery. She denies fever cough or recent illness. She has been immunized against Covid. Prior similar symptoms: No PFSH PFSH Medical History Hypoparathyroidism Osteoporosis Home Medications levothyroxine [Synthroid] 50 mcg PO MOTUWETHFRSA 06/27/18 [History Last Taken 06/09/20] calcitriol 0.5 mcg PO DAILY 06/09/20 [History Last Taken 06/08/20] calcium carbonate-vitamin D3 1 tab PO DAILY 06/09/20 [History Last Taken 06/08/20] levothyroxine 25 mcg PO SON 06/09/20 [History Last Taken 06/07/20] kynvxipc-qzl-yaqs-FA-lutein 1 tab PO DAILY 06/09/20 [History Last Taken 06/08/20] Allergy/AdvReac Type Severity Reaction Status Date / Time alendronate sodium Allergy Unknown Verified 07/04/21 11:46 [From Fosamax] amoxicillin Allergy Unknown Verified 07/04/21 11:46 doxycycline Allergy Unknown Verified 07/04/21 11:46 erythromycin base Allergy Unknown Verified 07/04/21 11:46 tetracycline Allergy Unknown Verified 07/04/21 11:46 ANTIBIOTICS Allergy Other Uncoded 07/04/21 11:46 Family History Mother Breast cancer Sister Breast cancer Sister Breast cancer Daughter Breast cancer Surgical History Status post Mohs surgery Social History (Updated 03/23/21 @ 13:[address] Feliciano Phan MD) household members: none current occupational exposures/hazards: No Smoking Status: Never smoker details: No recent alcohol use substance use type: does not use ROS ROS ED Constitutional Constitutional ED: Reports systems reviewed and no addt'l complaints, except as documented; Denies body ache(s), change in weight or chills Eyes Eyes: Denies acute decrease in peripheral vision, change in vision, double vision or loss of vision ENT ENT ED: Reports none; Denies ear pain, lip swelling, loss taste/smell, neck pain, otalgia or sore throat Cardiovascular Cardiovascular: Reports none; Denies abdominal pain, chest pain with activity, leg edema, lightheadedness, palpitations, rapid heart rate or syncope Respiratory/Chest Respiratory/Chest: Reports none and dyspnea; Denies change in mental status, dry cough, hemoptysis, shortness of breath at rest or shortness of breath with exertion Gastrointestinal Gastrointestinal: Reports none; Denies abdominal pain, change in stool character, diarrhea, hematemesis, hematochezia, melena, rectal bleeding or vomiting Genitourinary Genitourinary ED: Reports none; Denies abdominal discomfort, anuria, dysuria, genital pain or polyuria Musculoskeletal Musculoskeletal: Reports none; Denies arthralgias, back pain, difficulty walking, extremity pain, muscle weakness or myalgias Integumentary Reports none; Denies abscess or rash Neurologic Neurologic: Reports none; Denies abnormal gait, confusion, focal weakness, frequent falls, headache(s), loss of vision, numbness, paresthesias, radicular pain, vertigo or weakness Psychiatric Psychiatric: Reports systems reviewed and no addt'l complaints, except as documented and none; Denies behavioral changes, confusion, difficulty concentrating, hallucinations, suicidal ideation, tactile hallucinations or visual hallucinations Endocrine Endocrinology: Denies none, cold intolerance, excessive sweating, fatigue or heat intolerance Hematologic/Lymphatic Hematologic/Lymphatic: Reports none; Denies anemia, easy bleeding or easy bruising Allergic/Immunologic Allergic/Immunologic ED: Denies as per HPI, none, lip swelling, mouth swelling, throat swelling, tongue swelling or hives EXAM Physical Exam Const Vital Signs: 07/04/21 11:20 07/04/21 11:58 07/04/21 12:15 Temperature 97.9 F Temperature Source Oral Pulse Rate 77 77 Respiratory Rate 32 H 15 Respiratory Effort Short of Breath Respiratory Depth Normal Respiratory Pattern Tachypnea Blood Pressure 144/88 H Blood Pressure Mean 106 Pulse Ox 99 98 Oxygen Delivery Method Room Air Room Air 07/04/21 14:03 Temperature Temperature Source Pulse Rate 76 Respiratory Rate 17 Respiratory Effort Respiratory Depth Respiratory Pattern Blood Pressure 155/99 H Blood Pressure Mean 117 Pulse Ox 99 Oxygen Delivery Method Room Air Positive well nourished and well developed General Appearance ED: well developed and NAD HEENT Reports TM's clear and moist mucous membranes normocephalic and atraumatic; Negative for trauma or tenderness Tympanic Membrane ED: Yes TM's clear Eyes PERRL and EOMs intact bilaterally General Eye ED: Negative for pale conjunctiva or scleral icterus Neck no lymphadenopathy, supple and no JVD General: Negative for tenderness Chest Wall inspection of chest normal and palpation of chest normal Chest: Negative for tenderness Resp clear to auscultation bilaterally Resp Narrative: Mild tachypnea. No accessory muscles or retractions. Effort and Inspection: Negative for respiratory distress or pain with movement Auscultation: Negative for rhonchi, wheezes or diminished lung sounds Cardio regular rate, regular rhythm, S1 normal heart sound, S2 normal heart sound and no murmurs Peripheral Pulses: pulses 2+ throughout GI normal to inspection, nondistended, normoactive bowel sounds, soft to palpation, non-tender, non-distended and no masses Back/Spine no CVA tenderness and no thoracic nor lumbar tenderness Extremity normal to inspection General Extremety ED: Negative for edema General Extremity: Negative for edema Neuro oriented x3, CN's II-XII intact bilaterally, no sensory deficits noted and gait normal Sensorium / Orientation: awake, alert, oriented to person, oriented to place and oriented to time Motor Exam: strength 5/5 throughout and strength abnormal Psych mental status grossly normal Skin no rashes or lesions noted and no wounds MDM MDM MDM Narrative Medical decision making narrative: Patient's dyspnea improved in the emergency department. Without any treatment given patient is back to her baseline. I suspect likely anxiety. Lab Data Attestation: I reviewed the patient's lab results. Labs: Laboratory Results - last 24 hr 07/04/21 07/04/21 07/04/21 12:27 12:27 12:27 WBC 8.3 RBC 4.62 Hgb 14.2 Hct 41.9 MCV 90.7 MCH 30.7 MCHC 33.9 RDW Std Deviation 40.4 RDW Coeff of Rosalina 12.4 Plt Count 251 MPV 8.8 Immature Gran % (Auto) 0.500 Neut % (Auto) 78.3 H Lymph % (Auto) 9.5 L Clinch % (Auto) 10.3 H Eos % (Auto) 1.0 Baso % (Auto) 0.4 Absolute Neuts (auto) 6.5 Absolute Lymphs (auto) 0.79 L Nucleated RBC % 0 D-Dimer Quant (PE/DVT) 1.34 H* Sodium 140 Potassium 3.7 Chloride 106 Carbon Dioxide 26.0 Anion Gap 8 BUN 19 H Creatinine 0.86 Estim Creat Clear Calc 36.56 Est GFR (MDRD) Af Amer 81 Est GFR (MDRD) Non-Af 67 BUN/Creatinine Ratio 22.1 H Glucose 98 Calcium 10.2 H Troponin I High Sens 5 Radiography Chest X-Ray - ED: 1 View Diagnostic Testing: Radiology Impression Chest X-Ray 07/04/21 11:41 IMPRESSION: Normal x-ray examination of the chest. Electronically Signed: Miles Fernández MD at 13:22 EDT Tel , Service support , Chest CTA 07/04/21 13:32 IMPRESSION: Normal CTA chest examination, without a demonstrated pulmonary embolism or arterial dissection. Electronically Signed: Bill Ortiz MD at 15:26 EDT , Service support , 1 view chest x-ray obtained interpreted by myself as no acute disease process. Radiology in agreement. EKG Initial EKG: Attestation: I personally reviewed and interpreted this EKG as follows: Comments: Sinus rhythm with a ventricular rate of 75 bpm with short WA and nonspecific ST changes. Discharge Plan Triage Chief Complaint: Shortness of Breath ED Provider: Derek Elaine Dx/Rx/DC Orders Clinical Impression: Acute dyspnea, Anxiety Instructions: ED Anxiety Reaction, ED Dyspnea Prescriptions: No Action levothyroxine [Synthroid] 50 MCG tablet 50 mcg PO MOTUWETHFRSA RF: 0 calcitriol 0.25 MCG capsule 0.5 mcg PO DAILY RF: 0 calcium carbonate-vitamin D3 1 EACH tablet 1 tab PO DAILY RF: 0 csmxfukn-rab-xfih-FA-lutein 1 EACH tablet 1 tab PO DAILY RF: 0 levothyroxine 50 MCG tablet 25 mcg PO SON RF: 0 Primary Care Provider: Lopez Morel Referrals: Lopez Morel DO [Primary Care Provider] - 3-5 Days Disposition Disposition: Home, Self Care
[2021-07-04 12:15] VITALS: PULSE 77; RESP 15; O2SAT 98
[2021-07-04 12:35] LABS: Absolute Lymphocyte Count 0.79 X10^3/uL (0.83-4.51); Absolute Neutrophil Count 6.5 X10^3/uL (2.0-7.7); Basophil# 0.03 X10^3/uL; Basophil% 0.4 % (0-1); Eosinophil# 0.08 X10^3/uL; Hematocrit 41.9 % (37-47); Hemoglobin 14.2 g/dL (12.0-15.0); Lymphocyte # 0.79 X10^3/ul (0.83-4.51); Lymphocyte % 9.5 % (19-41); Mean Corp Hgb Conc 33.9 g/dL (32-36); Mean Corpuscular Hgb 30.7 pg (27.0-32.0); Mean Corpuscular Volume 90.7 fL (81-99); Mean Platelet Vol. 8.8 fl (6.2-12.0); Monocyte# 0.85 X10^3/uL; Monocyte% 10.3 % (0-10); NRBC Flagged by Analyzer 0 % (0-5); Neutrophil # 6.49 X10^3/uL (2.7-7.7); Neutrophil % 78.3 % (47-70); Platelet Count 251 K/mm3 (150-450); RBC Distribution Width CV 12.4 % (11.6-14.6); RBC Distribution Width SD 40.4 fl (35.1-43.9); Red Blood Count 4.62 M/mm3 (4.2-5.4); White Blood Count 8.3 K/mm3 (4.4-11.0)
[2021-07-04 12:51] LABS: Anion Gap 8 (5-15); BUN 19 mg/dL (7-18); BUN/Creat Ratio 22.1 RATIO (10-20); Calcium,Total 10.2 mg/dL (8.5-10.1); Chloride 106 mmol/L (98-107); Creatinine, Serum 0.86 mg/dL (0.55-1.02); EST Glomerular Filtration Rate 67 mL/min (>60); Est Glom Filt Rate - Afr Amer 81 mL/min (>60); Estimated Creatinine Clearance 36.56 ml/min; Glucose 98 mg/dL (74-106); Potassium 3.7 mmol/L (3.5-5.1); Sodium Level 140 mmol/L (136-145); Troponin-I HS 5 pg/mL (3.0-54.0)
[2021-07-04 13:02] LABS: D-Dimer Quantitative (DVT/PE) 1.34 FEU/ug/m (0.27-0.49)
--- NOTE | 2021-07-04 13:32 | CT_ITS ---
STUDY: CTA CHEST REASON FOR EXAM: Female, 85 years old. Dyspnea, elevated d-dimer RADIATION DOSAGE (If Supplied By Facility): CTDIvol = ( 4.94 ) mGy, DLP = ( 131.17 ) mGycm TECHNIQUE: The examination was performed with the intravenous administration of 75mL Isovue-370. Post-processing of the angiographic images was performed, with multiplanar reformation and 3D reconstruction. Individualized dose optimization techniques were used for this CT. COMPARISON: July 04, 2021 chest x-ray. June 09, [address] FINDINGS: Normal enhancement of the main pulmonary artery and right and left pulmonary arteries. Normal enhancement of the bilateral peripheral pulmonary arteries. There is no demonstrated pulmonary embolism. Normal thoracic aorta and visualized great vessels. There is no demonstrated aortic dissection. Normal heart and pericardium. Normal mediastinum. Normal hilar regions. Normal visualized trachea and bronchi. The lungs are well expanded. Normal pulmonary parenchyma. Normal pleura. Normal chest wall structures. Demineralization of the osseous structures. Normal visualized upper abdomen. CT/CTA Chest W/WO Contrast IMPRESSION: Normal CTA chest examination, without a demonstrated pulmonary embolism or arterial dissection. Electronically Signed: Bill Ortiz MD at 15:26 EDT , Service support ,
[2021-07-04 14:03] VITALS: BP 155/99; PULSE 76; RESP 17; O2SAT 99
[2021-07-04] MEDS: 0.9% Normal Saline 1,000 ML 150 ML IV (14:36)
[2021-07-04 16:16] VITALS: BP 139/96; PULSE 70; RESP 16; O2SAT 99
== END 2021-07-04 16:43 | disposition home or self-care (01) ==
PROVIDERS: Emergency Provider Emergency Medicine; PCP Student in an Organized Health Care Education/Training Program
DX: R06.02 Shortness of breath (principal); F41.9 Anxiety disorder, unspecified; E20.9 Hypoparathyroidism, unspecified; M81.0 Age-related osteoporosis without current pathological fracture; Z79.899 Other long term (current) drug therapy
CPT/HCPCS: 71045; 71275; 80048; 84484; 85025; 85379; 93005; 99284; Q9967

== ENCOUNTER 2021-10-05 16:18 | Emergency (ER) | payer MEDICARE, SELFPAY ==
[2020-01-27 11:19] VITALS: BMI 21.2
[2021-10-05 16:19] VITALS: BP 144/92; PULSE 69; RESP 18; TEMP 35.9; O2SAT 99; BMI 19.7
--- NOTE | 2021-10-05 16:46 | EDS_ITS ---
HPI History of Present Illness Chief Complaint: Poisoning Informant: patient and family Narrative Narrative: Patient was outside working on her deck this afternoon removing leaves and noticed the furnace vent venting fumes onto the deck. After she had worked for a while she carried the leaf blower as well as a large bag of leaves up 3 flights of steps. Following this she was quite short of breath. She is concerned that she may have carbon oxide poisoning. She denies headache or any symptoms presently. [facility] Medical History Hypoparathyroidism Osteoporosis Home Medications levothyroxine [Synthroid] 50 mcg PO MOTUWETHFRSA 06/27/18 [History Last Taken 06/09/20] calcitriol 0.5 mcg PO DAILY 06/09/20 [History Last Taken 06/08/20] calcium carbonate-vitamin D3 1 tab PO DAILY 06/09/20 [History Last Taken 06/08/20] levothyroxine 25 mcg PO SON 06/09/20 [History Last Taken 06/07/20] vdgdgxny-mvh-llfz-FA-lutein 1 tab PO DAILY 06/09/20 [History Last Taken 06/08/20] Allergy/AdvReac Type Severity Reaction Status Date / Time alendronate sodium Allergy Unknown Verified 10/05/21 16:21 [From Fosamax] amoxicillin Allergy Unknown Verified 10/05/21 16:21 doxycycline Allergy Unknown Verified 10/05/21 16:21 erythromycin base Allergy Unknown Verified 10/05/21 16:21 tetracycline Allergy Unknown Verified 10/05/21 16:21 Family History Mother Breast cancer Sister Breast cancer Sister Breast cancer Daughter Breast cancer Surgical History Status post Mohs surgery Social History household members: none current occupational exposures/hazards: No Smoking Status: Never smoker details: No recent alcohol use substance use type: does not use ROS ROS ED Constitutional Constitutional ED: Denies chills or fever(s) Eyes Eyes: Denies change in vision ENT ENT ED: Denies sore throat Cardiovascular Cardiovascular: Denies chest pain Respiratory/Chest Respiratory/Chest: Reports dyspnea; Denies cough Gastrointestinal Gastrointestinal: Denies abdominal pain, diarrhea, nausea or vomiting Genitourinary Genitourinary ED: Denies dysuria Musculoskeletal Musculoskeletal: Denies back pain Integumentary Denies rash Neurologic Neurologic: Denies headache(s) or weakness Allergic/Immunologic Allergic/Immunologic ED: Denies urticaria EXAM Physical Exam Const Vital Signs: 10/05/21 16:19 Temperature 96.7 F L Temperature Source Temporal Pulse Rate 69 Respiratory Rate 18 Blood Pressure 144/92 H Blood Pressure Mean 109 Pulse Ox 99 Oxygen Delivery Method Room Air Positive well nourished and well developed General Appearance ED: well developed Eyes PERRL and EOMs intact bilaterally Neck no lymphadenopathy and supple Chest Wall inspection of chest normal and palpation of chest normal Resp normal respiratory effort and clear to auscultation bilaterally Cardio regular rate and regular rhythm GI normal to inspection, nondistended, normoactive bowel sounds and non-tender Palpation: soft Extremity normal to inspection Neuro oriented x3 Sensorium / Orientation: alert Skin no rashes or lesions noted MDM MDM MDM Narrative Medical decision making narrative: Portable CO monitor used to check patient's, monoxide level. Her reading comes back at 0. SPO2 is correlating with the monitor. Patient and family are reassured with this. Discharge Plan Triage Chief Complaint: Poisoning ED Provider: Shagufta Devries Dx/Rx/DC Orders Clinical Impression: Dyspnea Instructions: ED Dyspnea Prescriptions: No Action levothyroxine [Synthroid] 50 MCG tablet 50 mcg PO MOTUWETHFRSA RF: 0 calcitriol 0.25 MCG capsule 0.5 mcg PO DAILY RF: 0 calcium carbonate-vitamin D3 1 EACH tablet 1 tab PO DAILY RF: 0 pulvgdyg-kob-yfvh-FA-lutein 1 EACH tablet 1 tab PO DAILY RF: 0 levothyroxine 50 MCG tablet 25 mcg PO SON RF: 0 Primary Care Provider: Lopez Morel Referrals: Lopez Morel DO [Primary Care Provider] - Disposition Disposition: Home, Self Care
[2021-10-05 17:06] VITALS: BP 144/90; PULSE 73; RESP 18; O2SAT 97
[2021-10-05 17:09] VITALS: O2SAT 97
== END 2021-10-05 17:10 | disposition home or self-care (01) ==
LOC: ED 16:58
PROVIDERS: Emergency Provider Emergency Medicine; PCP Student in an Organized Health Care Education/Training Program
DX: R06.00 Dyspnea, unspecified (principal); M81.0 Age-related osteoporosis without current pathological fracture; E20.9 Hypoparathyroidism, unspecified; Z79.899 Other long term (current) drug therapy
CPT/HCPCS: 99282

== ENCOUNTER 2021-11-08 15:00 | Outpatient (RCR) | payer MEDICARE, SELFPAY ==
[2020-01-27 11:19] VITALS: BMI 21.2
--- NOTE | 2021-10-28 11:16 | HP.PTEVAL_ITS ---
Patient's Visit Information VARGAS SUTHERLAND is a 86 year old F referred to Physical Therapy by Dr. Lopez Levy DO with a diagnosis of ACUTE MIDLINE LBP W/OUT SCIATICA. Date of Evaluation: 10/28/21 Physical Therapist: India Borrero PT, Cert MDT - Visit Plan Frequency: 2-3x /Week Duration: 4-6 Weeks Plan: POSTURE CORRECTION/STRENGTHENING, INSTRUCTION IN APPROPRIATE BODY MECHANICS AND ACTIVITY MODIFICATIONS. DLS STARTING WITH A NEUTRAL SPINE PROGRESSING ROM TOLERATED. GEORGE LE ROM, STRETCHING AND STRENGTHENING. HEP INSTRUCTION. - Subjective Work/Leisure: RETIRED. 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 Present symptoms: ACUTE SCIATICA END OF MAY 2021. WENT TO THE ED IN [place]. COULDN'T PUT ANY WEIGHT ON THE RIGHT FOOT. COULDN'T STRAIGHTEN LEG AND COULDN'T COMPLETELY BEND IT EITHER. EXCRUCIATING PAIN. HAD A LOT OF X-RAYS IN [place] OF BACK AND RIGHT LEG. DX'D WITH DEGENERATION OF LOWER VERTEBRAE. PATIENT HAS OSTEOPOROSIS. PATIENT REPORTS GETTING OVER THAT WAS REALLY HARD. STATES SHE IS CURRENTLY PAINFREE AT NIGHT NOW BUT SITTING AND DRIVING CAUSE BACK STIFFNESS. NO LONGER GETTING SHARP PAIN. STANDING AND WALKING IS BEST. STATES IT TOOK A LONG TIME TO BE ABLE TO SLEEP THROUGH THE NIGHT. LOOKING FOR STRENGTHENING EX'S FOR LOWER SPINE TO PREVENT REOCCURANCE. MILD RIGHT LOW BACK PAIN BEGINNING OF THE SUMMER BUT IN MAY TURNED TO PICK DOG UP AND ACCIDENTLY STEPPED ON HER PAW AND JERKED FOLLOWED BY SEVERE PAIN. HAD TO BE ON CRUTCHES ORIGINALLY. WAS REFERRED TO PAIN MGMT BUT CAME DOWN WITH A FEVER FOR WEEKS - DX'D WITH BLADDER INFECTION. PAIN DECREASED IN BACK/R LE SO DECIDED TO TRY PT INSTEAD OF PAIN MGMT. Pain Scale: WORST 9/10, LEAST 0/10. Currently: 0/10. Worse: SITTING. Better: STANDING AND WALKING. Disturbed sleep: NOT FOR THE LAST 4 WEEKS. Previous history/Previous treatment: UNREMARKABLE. Treatment this episode: MEDICINE INCLUDING STEROID. Coughing/sneezing/straining: NEGATIVE. Gait: DIFFICULTY INITIATING GAIT AFTER SITTING MORE THAN ABOUT HOUR. Difficulty initiating urination: NO. Accidents: NO. Unexplained weight loss: YES - DR. LEVY IS AWARE. Imaging: X-RAYS AT [place]. PMH/Recent major surgery: OSTEOPOROSIS, KIDNEY STONE, THYROID DZ. CVA BUT PATIENT NOT SURE WHEN AND ISN'T AWARE OF DEFICITS FROM IT OTHER THAN BLURRED OR DOUBLE VISION. - Objective Sitting/Standing Posture: POOR. Lordosis: DECREASED. Active Correction of posture: BETTER. Other Observations: INDEP GAIT INTO PT WITHOUT ANY ASSISTIVE DEVICES BUT WITH DECREASED CADANCE, INCREASED TRUNK FLEXION, DECREASED GEORGE STRIDE LENGTH. DIFFICULTY RISING FROM SITTING AND INITIATING GAIT AFTER SITTING. Motor deficit: RIGHT LE: HIP 4-/5, KNEE 4/5, ANKLE 5/5. LLE: HIP 3+/5, KNEE 4/5, ANKLE 5/5. (HISTORY OF LLE SX'S THAT PATIENT RELATES TO HER NECK HISTORY). Sensory deficit: LEFT LE TINGLING COMPARED TO RIGHT LE - PATIENT RELATES THIS TO PAST PROBLEM WITH HER NECK. ROM deficit: TIGHT GEORGE HS'S AND GASTROC SOLEUS COMPLEX'S RIGHT > LEFT. Reflexes: UNABLE TO ELICIT GEORGE LE DTR'.S. Dural Signs: POSITIVE GEORGE LE'S RIGHT > LEFT. Lumbar mvmt loss: flex - MOD. ext - SHANDRA. R SG - MOD. L SG - MOD. PATIENT C/O LBP WITH LUMBAR ROM TESTING ALL PLANES. Core strength: POOR - Balance/Special Test Scores Oswestry Low Back Score: 2 - Goals Goal 1:: DECREASE C/O LBP AND RIGHT LE SX'S. Goal Time Frame: 4-6 Weeks Goal 2:: IMPROVE TRAVEL AND HOMEMAKING FUNCTION Goal Time Frame: 4-6 Weeks Goal 3:: INSTRUCT IN PROPHYLAXIS Goal Time Frame: 4-6 Weeks - Anticipated Interventions Patient/Client Instruction: Educate patient on: Condition, Plan of Care, Risk Factors For the Purpose of:: To improve self management Therapeutic Exercise to Include: Strength training, Body mechanics, Postural training, Flexibilty training, Neuromotor development, Dynamic Lumbar Stabilization For the Purpose of:: To decrease pain, To increase ROM, To improve muscle performance and motor function, To increase tolerance to activity/condition/position, To improve ability of physical actions for home/community/work/leisure, To improve gait and locomotor functions Thank you for the opportunity to evaluate your patient. For Medicare and Medicare HMO plans, please review the plan of care and approve it. It will need to be FAXED BACK to us at [phone] for Medicare purposes. For Medicare only, by signing this I certify the plan of care. Please let me know if there are questions or concerns regarding this plan of care. Physician Signature: Date:
--- NOTE | 2021-11-08 15:32 | HP.PTDCSUM ---
It has been my pleasure to treat VARGAS SUTHERLAND referred by Dr. Lopez Morel, DO, with the diagnosis of ACUTE MIDLINE LBP W/OUT SCIATICA for a total of 6 visit(s). Discharge Date: 11/08/21 Please see the following information for a summary of their discharge status. Subjective: PATIENT REPORTS SOME OF THE EX'S CAUSE TINGLING IN HER LEGS L>R SO SHE STOPPED. PATIENT REPORTS THAT OVER-ALL EVERYTHING IS BETTER. STATES SHE HAS BEEN AT HER DAUGHTERS AT [place] AND SHE HAS BEEN DOING A LOT OF STEPS. STATES SHE CAN GO UP AND DOWN THEM NORMALLY NOW AND A FEW WEEKS AGO WHEN SHE WAS THERE SHE HAD TO TAKE ONE STEP AT A TIME. PATIENT REPORTS NON-COMPLIANCE WITH SOME OF HER HOME EX'S AND STATES SHE HASN'T TRIED THE NEW EX'S FROM LAST VISIT FOR A FEW DAYS. PATIENT UNABLE TO ANSWER QUESTION ABOUT % BETTER. RIGHT HIP Pain Intensity (Out of 10): 2 RIGHT THIGH Pain Intensity (Out of 10): 0 RIGHT LEG Pain Intensity (Out of 10): 1 GEORGE LOW BACK Pain Intensity (Out of 10): 2 Objective/Function: PATIENT UNABLE TO TOLERATE LIGHT EX TODAY WITHOUT INCREASED LEG SX'S. THIS PT RECOMMENDED TRIAL OF AQUATIC THERAPY BUT PATIENT DECLINED. STATES SHE WANTS TO TALK WITH DR. MOREL ABOUT A NEURO CONSULT BEFORE CONTINUEING THEARAPY. ALSO REPORTS SHE WANTS TO BE DONE WITH PT BY THE END OF THE YEAR ANYWAY DUE TO INSURANCE. Goal 1:: DECREASE C/O LBP AND RIGHT LE SX'S. Goal 2:: IMPROVE TRAVEL AND HOMEMAKING FUNCTION Goal 3:: INSTRUCT IN PROPHYLAXIS Plan: D/C TO PHYSICIAN RE-ASSESSMENT AT PATIENTS REQUEST. If there are questions or concerns regarding this patient's physical therapy, please feel free to call me at [phone]. Thank you for the referral of this patient. Sincerely, India Borrero, PT, Cert MDT Balance/Gait/Functional tests - Balance/Special Test Scores Oswestry Low Back Score: 2
== END 2021-11-08 19:00 | disposition home or self-care (01) ==
LOC: PT 15:00
PROVIDERS: PCP Student in an Organized Health Care Education/Training Program; Referring Provider Student in an Organized Health Care Education/Training Program; Visit Provider Student in an Organized Health Care Education/Training Program
DX: M54.50 Low back pain, unspecified (principal); R63.4 Abnormal weight loss
CPT/HCPCS: 97110; 97162; 97530

== ENCOUNTER 2023-02-07 10:30 | Outpatient (RCR) | payer MEDICARE, SELFPAY ==
[2020-01-27 11:19] VITALS: BMI 21.2
--- NOTE | 2023-01-02 11:32 | HP.PTEVAL ---
Patient's Visit Information VARGAS SUTHERLAND is a 87 year old F referred to Physical Therapy by Dr. Lopez Morel DO with a diagnosis of LUMBOSACRAL RADICULOPATHY L5,S1 AND STENOSIS.. Date of Evaluation: 01/02/23 Physical Therapist: India Borrero, PT, Cert MDT - Visit Plan Frequency: 2-3x /Week Duration: 4-6 Weeks Plan: POSTURE CORRECTION/STRENGTHENING, INSTRUCTION IN APPROPRIATE BODY MECHANICS AND ACTIVITY MODIFICATIONS. DLS STARTING WITH A NEUTRAL SPINE PROGRESSING ROM TOLERATED. GEORGE LE ROM, STRETCHING AND STRENGTHENING. HEP INSTRUCTION. PATIENT DECLINES AQUATIC THERAPY. - Subjective Work/Leisure: RETIRED. 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 NO LONGER GOLFING. Present symptoms: ACUTE SCIATICA END OF MAY 2021. WENT TO THE ED IN [place]. COULDN'T PUT ANY WEIGHT ON THE RIGHT FOOT. COULDN'T STRAIGHTEN LEG AND COULDN'T COMPLETELY BEND IT EITHER. EXCRUCIATING PAIN. HAD A LOT OF X-RAYS IN [place] OF BACK AND RIGHT LEG. DX'D WITH DEGENERATION OF LOWER VERTEBRAE. PATIENT HAS OSTEOPOROSIS. PATIENT REPORTS GETTING OVER THAT WAS REALLY HARD. STATES SHE IS CURRENTLY HAVING CONSTANT LEFT LOW BACK AND TAILBONE PAIN THAT ACHES. L FOOT SX'S. SOMETIMES TINGLING IN HER TOES. SOME L FOOT SWELLING. ALSO GETTING SORENESS DOWN THE INSIDE OF HER LEG. SOMETMES SHOOTING DOWN INSIDE OF LEG TO BIG TOE. PAINFREE AT NIGHT NOW BUT SITTING AND DRIVING CAUSE BACK STIFFNESS BUT CUSHION HELPS. STILL GETS TINGLING ALL OVER HER BODY SOMETIMES. HURTS TO PUSH ON BRAKE WITH LEFT FOOT TO START CAR. MORNINGS ARE THE WORST. Pain Scale: WORST 6/10, LEAST 1/10. Currently: 1/10. Worse: RISING FROM SITTING, STEPS, REACHING DOWN AND LIFTING. CAN CONTROL PAIN BETTER WHEN SHE AVODS THESE THINGS. Better: SITTING, TYLONOL ARTHRITIS Disturbed sleep: SOMETIMES Previous history/Previous treatment: H/O HNP LUMBAR SPINE IN THE 'S TREATED WITH PT. SURGICAL CONSULTS AT THAT TIME WITH SURGERY RECOMMENDED BUT PATIENT DID NOT DUE SX. MEDICINE INCLUDING STEROID. NO PAIN MGMT. NO INJECTIONS. NO SPINE SURGERY. NO CHIROPRACTIC. DID HAVE PT. Coughing/sneezing/straining: NEGATIVE. Gait: DIFFICULTY INITIATING GAIT AFTER SITTING MORE THAN ABOUT HOUR. Difficulty initiating urination: NO. Accidents: NO. Unexplained weight loss: NO Imaging: LUMBAR X-RAYS AND MRI AT [facility]. PMH/Recent major surgery: SCOLIOSIS. OSTEOPOROSIS, KIDNEY STONE, THYROID DZ. CVA BUT PATIENT NOT SURE WHEN AND ISN'T AWARE OF DEFICITS FROM IT OTHER THAN BLURRED OR DOUBLE VISION. OTHER: JOHN'T PENDING WITH DR. BAE IN A [place]. PATIENT REPORTS ONSET OF LOOSE STOOL ABOUT 4 DAYS AGO THAT SHE RELATES TO HER DIET. THIS PT RECOMMENDED SHE LET DR. MOREL KNOW ABOUT THIS. PATIENT AGREEABLE. - Objective Sitting/Standing Posture: POOR. SCOLIOSIS. Lordosis: DECREASED. Active Correction of posture: BETTER. Other Observations: INDEP GAIT INTO PT WITHOUT ANY ASSISTIVE DEVICES BUT WITH DECREASED CADANCE, INCREASED TRUNK FLEXION, DECREASED GEORGE STRIDE LENGTH AND LIMPING ON LLE. DIFFICULTY RISING FROM SITTING AND INITIATING GAIT AFTER SITTING. Motor deficit: RIGHT LE: HIP 4-/5, KNEE 4/5, ANKLE 5/5. LLE: HIP 3+/5, KNEE 4-/5, ANKLE 4/5. (HISTORY OF LLE SX'S THAT PATIENT RELATES TO HER NECK HISTORY). GEORGE EHL 4/5. Sensory deficit: LEFT LE TINGLING IN LATERAL LEG AND SORENESS L FOOT COMPARED TO RIGHT. ROM deficit: TIGHT GEORGE HS'S AND GASTROC SOLEUS COMPLEX'S RIGHT > LEFT. Reflexes: UNABLE TO ELICIT GEORGE LE DTR'.S. Dural Signs: POSITIVE L LE AND NEGATIVE RIGHT LE. Lumbar mvmt loss: flex - MOD. ext - SHANDRA. R SG - MOD. L SG - MOD. PATIENT C/O L LBP WITH LUMBAR ROM TESTING ALL PLANES AND A LITTLE BIT OF RIGHT LBP WITH R SG TESTING. Core strength: POOR. PALPATION: TENDERNESS WITH LIGHT PALPATION OF LEFT LUMBOSACRAL REGIONS. TENDERNESS LEFT LATERAL FOOT. PATIENT STATES SHE THINKS SHE STUBBED HER LITTLE TOE. THIS PT ADVISED PATIENT TO HAVE HER LEFT FOOT EXAMINED IF SORENESS CONTINUES. TREATMENT: NEUROMUSCULAR REEDUCATION - RETRAINING OF MVMT AND POSTURE FOR SITTING, LYING AND STANDING ACTIVITIES. PATIENT GETS DISTRACTED EASILY AND NEEDS A LOT OF REINFORCEMENT OF INSTRUCTIONS AFTER GIVEN. - Balance/Special Test Scores Oswestry Low Back Score: 15 - Goals Goal 1:: DECREASE C/O LEFT LOW BACK AND LE SX'S. Goal Time Frame: 4-6 Weeks Goal 2:: IMPROVE PERSONAL CARE, LIFTING, WALKING, SITTING, SOCIAL LIFE, TRAVEL AND HOMEMAKING FUNCTION. Goal Time Frame: 4-6 Weeks Goal 3:: INSTRUCT IN PROPHYLAXIS Goal Time Frame: 4-6 Weeks - Anticipated Interventions Patient/Client Instruction: Educate patient on: Condition, Plan of Care, Risk Factors For the Purpose of:: To improve self management Therapeutic Exercise to Include: Strength training, Body mechanics, Postural training, Flexibilty training, Gait and locomotor training, Neuromotor development, Dynamic Lumbar Stabilization For the Purpose of:: To decrease pain, To increase ROM, To improve muscle performance and motor function, To increase tolerance to activity/condition/position, To improve ability of physical actions for home/community/work/leisure, To improve gait and locomotor functions Thank you for the opportunity to evaluate your patient. For Medicare and Medicare HMO plans, please review the plan of care and approve it. It will need to be FAXED BACK to us at [phone] for Medicare purposes. For Medicare only, by signing this I certify the plan of care. Please let me know if there are questions or concerns regarding this plan of care. Physician Signature: Date:
--- NOTE | 2023-05-08 18:50 | HP.PT.NRP ---
VARGAS REBECCA SUTHERLAND was seen in my office for initial evaluation on 01/02/23. The following Plan of Care was established for this patient: Initial Frequency: 2-3x /Week Initial Duration: 4-6 Weeks Patient/Client Instruction: Educate patient on: Condition, Plan of Care, Risk Factors For the Purpose of:: To improve self management Therapeutic Exercise to Include: Strength training, Body mechanics, Postural training, Flexibilty training, Gait and locomotor training, Neuromotor development, Dynamic Lumbar Stabilization For the Purpose of:: To decrease pain, To increase ROM, To improve muscle performance and motor function, To increase tolerance to activity/condition/position, To improve ability of physical actions for home/community/work/leisure, To improve gait and locomotor functions This patient was last seen in our office 02/07/23. Pertinent comments regarding their Physical therapy will appear below: This patient has not returned to Physical Therapy and is appropriate to return to MD for further follow-up as needed. At this point I will be discontinuing this patient from physical therapy. I would be happy to see this patient again in the future if found appropriate by the physician. Thank you! India Borrero, PT, Cert MDT Balance/Gait/Functional tests - Balance/Special Test Scores Oswestry Low Back Score: 15 30 Second Chair Rise Test Seconds: 5
== END 2023-02-07 19:00 | disposition home or self-care (01) ==
LOC: PT 10:30
PROVIDERS: PCP Student in an Organized Health Care Education/Training Program; Referring Provider Student in an Organized Health Care Education/Training Program; Visit Provider Student in an Organized Health Care Education/Training Program
DX: M54.17 Radiculopathy, lumbosacral region (principal); M48.061 Spinal stenosis, lumbar region without neurogenic claudication
CPT/HCPCS: 97110; 97112; 97162; 97530

== ENCOUNTER 2023-06-03 02:35 | Emergency (ER) | payer MEDICARE, SELFPAY ==
[2020-01-27 11:19] VITALS: BMI 21.2
[2023-06-03 02:37] VITALS: BP 165/95; PULSE 89; RESP 18; TEMP 36.4; O2SAT 99; BMI 21.3
--- NOTE | 2023-06-03 02:42 | EKG12_ITS ---
Test Reason : FLANK PAIN Blood Pressure : / mmHG Vent. Rate : 069 BPM Atrial Rate : 069 BPM P-R Int : 122 ms QRS Dur : 072 ms QT Int : 438 ms P-R-T Axes : 079 042 063 degrees QTc Int : 469 ms Normal sinus rhythm Normal ECG Confirmed by JACQUELYN HALL, RADHA ([id number]), script editor ENID WHITTAKER ([id number]) on 06/05/2023 12:32:11 PM Referred By: KHOI Confirmed By:RADHA VALLADARES MD
--- NOTE | 2023-06-03 02:43 | EDS_ITS ---
HPI HPI - Female History of Present Illness Chief Complaint: Flank Pain PFSH PFSH Medical History (Updated 06/03/23 @ 05:[address] Mc Feliciano, DO) Hypoparathyroidism Osteoporosis Pinched nerve Spinal stenosis Home Medications levothyroxine 50 mcg tablet (Synthroid) 50 mcg PO MOTUWETHFRSA THYROID 06/27/18 [History Last Taken 06/09/20] calcitriol 0.25 mcg capsule 0.5 mcg PO DAILY SUPPLEMENT 06/09/20 [History Last Taken 06/08/20] calcium carbonate-vitamin D3 600 mg-125 unit tablet 1 tab PO DAILY SUPPLEMENT 06/09/20 [History Last Taken 06/08/20] levothyroxine 50 mcg tablet 25 mcg PO SON THYROID 06/09/20 [History Last Taken 06/07/20] zomaifrm-gpcs-ggqx 8 mg-folic 400 mcg-K 50 mcg-lutein 300 mcg tablet 1 tab PO DAILY SUPPLEMENT 06/09/20 [History Last Taken 06/08/20] Allergy/AdvReac Type Severity Reaction Status Date / Time alendronate sodium Allergy Unknown Verified 06/03/23 02:41 [From Fosamax] amoxicillin Allergy Unknown Verified 06/03/23 02:41 doxycycline Allergy Unknown Verified 06/03/23 02:41 erythromycin base Allergy Unknown Verified 06/03/23 02:41 tetracycline Allergy Unknown Verified 06/03/23 02:41 Family History Mother Breast cancer Sister Breast cancer Sister Breast cancer Daughter Breast cancer Surgical History Status post Mohs surgery Social History household members: none current occupational exposures/hazards: No Smoking Status: Never smoker details: No recent alcohol use substance use type: does not use EXAM Physical Exam Const Vital Signs: 06/03/23 02:37 06/03/23 04:43 Temperature 97.5 F L Temperature Source Temporal Pulse Rate 89 69 Respiratory Rate 18 18 Blood Pressure 165/95 H 170/97 H Blood Pressure Mean 118 121 Pulse Ox 99 99 Oxygen Delivery Method Room Air MDM MDM MDM Narrative Medical decision making narrative: HISTORY OF PRESENT ILLNESS: 87-year-old female here with left flank pain/back pain. States the pain started tonight acutely. Notes she was doing yard work today. Notes history of spinal stenosis. Denies history of connective tissue diseases such as Se-Danlos or Marfan syndrome. Denies any fever. Notes intractable nausea and vomiting. Denies chest pain or shortness of breath. Denies history abdominal surgery. Denies any recent fall or other trauma. Patient denies any saddle anesthesia, urinary retension, bowel or bladder incontinence, lower extremity weakness, fever or IV drug use, no recent spinal manipulation or surgery, no recent urinary catheterization. REVIEW OF SYSTEMS: Pertinent positives: Flank pain, back pain, nausea Pertinent negatives: Chest pain, syncope, incontinence, loss of sensation PHYSICAL EXAM: Nursing triage notes reviewed, Vital signs reviewed Constitutional: please see mdm HENT: MMM Eyes: Pupils equal round and reactive to light, Extraocular muscles intact Neck: No stridor, no JVD, full neck ROM Lungs: Clear to auscultation, No wheezing or rales. No increased work of breathing, no conversational dyspnea, no accessory muscle use, no nasal flaring. No respiratory distress noted Heart: Regular rate and rhythm, No murmurs, No rubs and No gallops, 2+ distal pulses (radial, femoral, posterior tibial) in all extremities Abdomen: Soft, there is no tenderness, rigidity, rebound or guarding, no obvious peritoneal signs, no palpable pulsatile abdominal masses, no auscultated abdominal bruit : No CVAT Extremities: No edema Neuro: Intact sensation L1-S1 dermatomal distributions. Intact 5/5 strength in hip flexion (T12-L3). Knee extension (L2-L4). Ankle dorsiflexion (L4-L5). Ankle plantar flexion (S1). Great toe extension (L5). 2+ patellar and Achilles DTRs. Skin: No rash or lesions noted MEDICAL DECISION MAKING: Chief Complaint: Left flank pain External records reviewed: CT of the chest from June 2021 shows no PE Factors affecting care: Hypothyroidism, nephrolithiasis Social determinants of health: Elderly History obtained from others: The patient's daughter Consults: none ALL IMAGES (IF OBTAINED) HAVE BEEN PERSONALLY REVIEWED AND INTERPRETED BY MYSELF. EKG normal sinus rhythm, normal axis, normal intervals, no STEMI MDM Narrative: Patient was initially hypertensive otherwise hemodynamically stable, afebrile, nontoxic-appearing. Initial exam had left CVA tenderness. There is no focal neurologic deficits. There is no stigmata of space-occupying age of the spine I considered the following differential diagnosis: Lumbar spine bony injury stenosis, space-occupying lesion of the spine, nephrolithiasis, pyelonephritis, AAA I obtained a broad lab and imaging work-up to further elucidate etiology the patient complaints. I considered a space-occupying in the spine however patient had no red flag symptoms such as bowel or bladder incontinence, urinary retention or focal numbness or weakness. He had a nonfocal lower extremity neuro exam there is not suggestive of a space-occupying lesion. She has no indication for emergent MRI at this time. Did obtain a CT scan lumbar spine to rule out any bony abnormality such as compression fracture or signs of herniated disc. Obtained Noncon CT of the abdomen pelvis rule out nephrolithiasis. Also obtain labs to rule out signs of dehydration, electrolyte abnormalities, systemic inflammation, anemia, UTI. I treat the patient with IV fluids, Zofran for nausea, Toradol and morphine for pain and inflammation control. Labs images were remarkable for evidence of a large proximal nephrolithiasis and hydronephrosis. Given the large size and possible location is unlikely this will pass on its own. In addition to this patient is still symptomatic with nausea and vomiting. I gave the patient the option to stay here at [facility] and be seen by our local urologist however she stated her care is done at [facility]. She requested to be transferred to the nearest [facility] facility with urologic capability. I did discuss the case with the [facility] transfer center. Patient was accepted by Dr. Hankins. She is awaiting transfer. Dr. Byers requested patient be kept n.p.o. she received a dose of Rocephin. This was ordered. Patient signed out to a.m. physician pending transfer to definitive care at [facility]. The patient and/or family, caregivers express understanding. The patient and/or family, caregivers agrees with the plan. Shared decision making: I will have a discussion with the patient and or visitors regarding risk/benefits of further testing or admission. They will be made aware of of the risk/benefits inherent in this decision they will be given the opportunity to voice understanding. Total critical care time today provided was at least 0 minutes. This excludes separately billable procedures. Critical care time (if documented) is secondary to the patient having high probability of clinically significant/life threatening deterioration in the patient's condition which required my urgent intervention. Lab Data Attestation: I reviewed the patient's lab results. Lab results narrative: CBC without leukocytosis, severe anemia, no thrombocytopenia. CMP without evidence of acute kidney injury, significant electrolyte abnormality, anion gap, no evidence hepatobiliary pathology. Lipase is wnl indicating no pancreatic inflammation. Urinalysis shows no evidence of urinary inflammation suggestive of UTI Labs: Laboratory Results - last 24 hr 06/03/23 06/03/23 02:50 03:55 WBC 8.6 RBC 4.52 Hgb 13.7 Hct 40.3 MCV 89.2 MCH 30.3 MCHC 34.0 RDW Std Deviation 39.7 RDW Coeff of Rosalina 12.3 Plt Count 236 MPV 8.9 Immature Gran % (Auto) 0.500 Neut % (Auto) 68.7 Lymph % (Auto) 18.8 L Drew % (Auto) 9.7 Eos % (Auto) 2.1 Baso % (Auto) 0.2 Absolute Neuts (auto) 5.9 Absolute Lymphs (auto) 1.62 Nucleated RBC % 0 Sodium 143 Potassium 3.5 Chloride 108 H Carbon Dioxide 25.0 Anion Gap 10 BUN 17 Creatinine 1.12 H Estim Creat Clear Calc 26.38 Est GFR (MDRD) Af Amer 59 L Est GFR (MDRD) Non-Af 49 L BUN/Creatinine Ratio 15.2 Glucose 127 H Calcium 10.3 H Total Bilirubin 0.60 Direct Bilirubin 0.14 AST 18 ALT 21 Alkaline Phosphatase 59 Total Protein 7.7 Albumin 3.9 Globulin 3.8 Lipase 63 Urine Color Yellow Urine Clarity Clear Urine pH 8.0 Ur Specific [place] 1.015 Urine Protein Negative Urine Glucose (UA) Normal Urine Ketones 5 H Urine Occult Blood 50 H Urine Nitrite Negative Urine Bilirubin Negative Urine Urobilinogen Normal Ur Leukocyte Esterase Negative Urine RBC 0-5 SEEN Urine WBC 0 SEEN Ur Squamous Epith Cells 0 SEEN Urine Bacteria 0 SEEN Urine Mucus 0 SEEN Radiography Diagnostic Testing: Clinical Impression(s) from Imaging Studies Abdomen/Pelvis CT 06/03/23 02:45 IMPRESSION: There is moderate left hydronephrosis due to 9 mm stone in the proximal left ureter. Multiple stones are seen in the left kidney measuring up to 10 mm . There is perinephric fat stranding on the left suggesting pyelonephritis. Electronically Signed: Coby Treviño MD at 5:09 EDT , Lumbar Spine CT 06/03/23 02:45 IMPRESSION: There is levoscoliosis of the lumbar spine and the angle measures approximately 30 degrees. There is moderate to severe multilevel spondylosis most prominent at L4-5 there is mild to moderate spinal canal stenosis at L1-2, L2-3 and L5-S1. There is severe spinal canal stenosis at L3-4 and L4-5. There is moderate compression fracture of L4 of undetermined age. Further evaluation by MRI would be helpful. There is moderate left hydronephrosis due to 9 mm stone in the proximal left ureter. Multiple stones are seen in the left kidney measuring up to 10 mm . Electronically Signed: Coby Treviño MD at 5:01 EDT , Discharge Plan Triage Chief Complaint: Flank Pain ED Provider: Mc Feliciano Dx/Rx/DC Orders Clinical Impression: Hydronephrosis, Nephrolithiasis, Intractable nausea and vomiting Prescriptions: No Action levothyroxine [Synthroid] 50 MCG tablet 50 mcg PO MOTUWETHFRSA Patient Comments: Rx Instructions: 1/2 TAB ON SUNDAYS AND 1 TAB MONDAY THROUGH MONDAY calcitriol 0.25 MCG capsule 0.5 mcg PO DAILY calcium carbonate-vitamin D3 1 EACH tablet 1 tab PO DAILY mticwsnn-wtw-vsgl-FA-vit K-lut 1 EACH tablet 1 tab PO DAILY levothyroxine 50 MCG tablet 25 mcg PO SON Rx Instructions: 1/2 TAB ON SUNDAYS AND 1 TAB MONDAY THROUGH MONDAY Primary Care Provider: Lopez Morel Referrals: Lopez Morel DO [Primary Care Provider] - Disposition Disposition: Acute Care Hospital Discharge Location: [facility]
--- NOTE | 2023-06-03 02:45 | CT_ITS ---
INDICATION: left flank pain r/o nephrolithiasis EXAMINATION: CT ABDOMEN AND PELVIS WITHOUT CONTRAST - CT Abdomen And Pelvis W/O Contrast Injection TECHNIQUE: Helically acquired images were obtained of the abdomen and pelvis without oral or IV contrast. A radiation dose optimization technique was used for this scan. IV Contrast dosage and agent: None. Oral contrast: None. RADIATION DOSAGE (If Supplied By Facility): CTDIvol = ( 6.81 ) mGy, DLP = ( 289.03 ) mGycm COMPARISON: FINDINGS: LOWER CHEST: Lung bases are clear. No cardiomegaly or pericardial effusion. LIVER: Homogeneous. No focal mass. GALLBLADDER AND BILIARY TREE: No calcified gallstones. No gallbladder distension or wall edema. No intra- or extrahepatic biliary ductal dilation. PANCREAS: No focal cystic or solid mass. SPLEEN: Normal size without focal cystic or solid mass. ADRENAL GLANDS: No nodules. KIDNEYS AND URETERS: There is moderate left hydronephrosis due to 9 mm stone in the proximal left ureter. Multiple stones are seen in the left kidney measuring up to 10 mm . There is perinephric fat stranding on the left suggesting pyelonephritis. PERITONEUM: No ascites or free air. No other fluid collection. BOWEL: There is descending colon and sigmoid diverticulosis. The appendix is normal. There is a small hiatal hernia. No focal inflammatory change. LYMPH NODES: No enlarged mesenteric or retroperitoneal lymph nodes. VESSELS: Aorta is non-dilated. URINARY BLADDER: Unremarkable. REPRODUCTIVE ORGANS: No pelvic masses. ABDOMINAL WALL: No discrete abdominal or pelvic wall hernia. BONES: There is moderate to severe multilevel spondylosis most prominent at L4-5 there is mild to moderate spinal canal stenosis at L1-2, L2-3 and L5-S1. There is severe spinal canal stenosis at L3-4 and L4-5. There is moderate compression fracture of L4 of undetermined age. Further evaluation by MRI would be helpful. CT/Abdomen/Pelvis without Cont IMPRESSION: There is moderate left hydronephrosis due to 9 mm stone in the proximal left ureter. Multiple stones are seen in the left kidney measuring up to 10 mm . There is perinephric fat stranding on the left suggesting pyelonephritis. Electronically Signed: Coby Treviño MD at 5:09 EDT ,
--- NOTE | 2023-06-03 02:45 | CT_ITS ---
INDICATION: back pain EXAMINATION: CT LUMBAR SPINE - CT Spine Lumbar W/O Contrast Injection TECHNIQUE: Helically acquired images were obtained of the lumbar spine. 2D reformats were reviewed. A radiation dose optimization technique was used for this scan. IV Contrast dosage and agent: None. RADIATION DOSAGE (If Supplied By Facility): CTDIvol = ( 13.82 ) mGy, DLP = ( 370.38 ) mGycm COMPARISON: FINDINGS: VERTEBRAE: There is moderate compression fracture of L4 of undetermined age. DISCS and SPINAL CANAL: There is levoscoliosis of the lumbar spine and the angle measures approximately 30 degrees. There is moderate to severe multilevel spondylosis most prominent at L4-5 there is mild to moderate spinal canal stenosis at L1-2, L2-3 and L5-S1. There is severe spinal canal stenosis at L3-4 and L4-5. VISUALIZED ABDOMEN: There is moderate left hydronephrosis due to 9 mm stone in the proximal left ureter. Multiple stones are seen in the left kidney measuring up to [address]/Spine Lumbar without Contrast IMPRESSION: There is levoscoliosis of the lumbar spine and the angle measures approximately 30 degrees. There is moderate to severe multilevel spondylosis most prominent at L4-5 there is mild to moderate spinal canal stenosis at L1-2, L2-3 and L5-S1. There is severe spinal canal stenosis at L3-4 and L4-5. There is moderate compression fracture of L4 of undetermined age. Further evaluation by MRI would be helpful. There is moderate left hydronephrosis due to 9 mm stone in the proximal left ureter. Multiple stones are seen in the left kidney measuring up to 10 mm . Electronically Signed: Coby Treviño MD at 5:01 EDT ,
[2023-06-03] MEDS: 0.9% Normal Saline 1,000 ML 999 ML IV (02:50)
[2023-06-03] MEDS: Ondansetron 4 MG/2 ML Vial IV (02:50)
[2023-06-03] MEDS: Ketorolac 15 MG/ML Vial IV (02:51)
[2023-06-03] MEDS: Morphine 4 MG/ML Syringe IV (02:51)
[2023-06-03 03:00] LABS: Absolute Lymphocyte Count 1.62 X10^3/uL (0.83-4.51); Absolute Neutrophil Count 5.9 X10^3/uL (2.0-7.7); Basophil# 0.02 X10^3/uL; Basophil% 0.2 % (0-1); Eosinophil# 0.18 X10^3/uL; Eosinophils% 2.1 % (0-5); Hematocrit 40.3 % (37-47); Hemoglobin 13.7 g/dL (12.0-15.0); Lymphocyte # 1.62 X10^3/ul (0.83-4.51); Lymphocyte % 18.8 % (19-41); Mean Corpuscular Hgb 30.3 pg (27.0-32.0); Mean Corpuscular Volume 89.2 fL (81-99); Mean Platelet Vol. 8.9 fl (6.2-12.0); Monocyte# 0.84 X10^3/uL; Monocyte% 9.7 % (0-10); NRBC Flagged by Analyzer 0 % (0-5); Neutrophil # 5.94 X10^3/uL (2.7-7.7); Neutrophil % 68.7 % (47-70); Platelet Count 236 K/mm3 (150-450); RBC Distribution Width CV 12.3 % (11.6-14.6); RBC Distribution Width SD 39.7 fl (35.1-43.9); Red Blood Count 4.52 M/mm3 (4.2-5.4); White Blood Count 8.6 K/mm3 (4.4-11.0)
[2023-06-03 03:15] LABS: Anion Gap 10 (5-15); BUN 17 mg/dL (7-18); BUN/Creat Ratio 15.2 RATIO (10-20); Calcium,Total 10.3 mg/dL (8.5-10.1); Chloride 108 mmol/L (98-107); Creatinine, Serum 1.12 mg/dL (0.55-1.02); EST Glomerular Filtration Rate 49 mL/min (>60); Est Glom Filt Rate - Afr Amer 59 mL/min (>60); Estimated Creatinine Clearance 26.38 ml/min; Glucose 127 mg/dL (74-106); Lipase 63 U/L (13-75); Potassium 3.5 mmol/L (3.5-5.1); Sodium Level 143 mmol/L (136-145)
[2023-06-03] MEDS: HYDROmorphone 0.5 MG/0.5 ML SYRINGE IV (03:21)
[2023-06-03 03:26] LABS: AST(SGOT) 18 U/L (15-37); Alanine Aminotransfer ALT/SGPT 21 U/L (13-56); Albumin, Serum 3.9 g/dL (3.2-5.0); Alkaline Phosphatase 59 U/L (45-117); Bilirubin, Direct 0.14 mg/dL (0.00-0.30); Globulin 3.8 g/dL (2.2-4.2); Protein, Total 7.7 g/dL (6.4-8.2)
[2023-06-03 04:02] LABS: Bacteria 0 SEEN /hpf (None Seen); Mucous, Urine 0 SEEN /hpf (<or=2+); Squamous Epithelial Cells - UA 0 SEEN /hpf (5-10); White Blood Cells 0 SEEN /hpf (0-5)
[2023-06-03 04:28] LABS: Color, Urine Yellow (Yellow); Glucose, Dipstick Normal (Normal); Ketone-Dipstick 5 mg/dl (Negative); Leukocyte Esterase-Dipstick Negative /ul (Negative); Nitrite-Dipstick Negative (Negative); Occult Blood-Urine 50 /ul (Negative); Protein-Dipstick Negative (Negative); Specific Gravity, Urine 1.015 (1.002-1.030); Urine Bilirubin Dipstick Negative (Negative); Urine Clarity Clear (Clear); Urine Urobilinogen Normal (Normal)
[2023-06-03 04:36] LABS: Red Blood Cells-Urine 0-5 SEEN /hpf (0-5)
[2023-06-03 04:43] VITALS: BP 170/97; PULSE 69; RESP 18; O2SAT 99
[2023-06-03] MEDS: proMETHazine 25 MG/ML Syringe IM (05:59)
[2023-06-03 07:30] VITALS: RESP 18
== END 2023-06-03 07:35 | disposition short-term general hospital (02) ==
PROVIDERS: Emergency Provider Emergency Medicine; PCP Student in an Organized Health Care Education/Training Program; Visit Provider Emergency Medicine
DX: N13.2 Hydronephrosis with renal and ureteral calculous obstruction (principal); R11.2 Nausea with vomiting, unspecified
CPT/HCPCS: 72131; 74176; 80048; 80076; 81001; 83690; 85025; 93005; 96361; 96374; 96375; 99285; J7030; A4216; J2405

== ENCOUNTER 2024-06-08 17:55 | Observation (INO) | payer MEDICARE, SELFPAY ==
[2020-01-27 11:19] VITALS: BMI 21.2
[2024-06-08] VITALS (13 sets, daily range): BP systolic 135–172; BP diastolic 77–102; PULSE 65–88; RESP 16–27; TEMP 36.1–36.7; O2SAT 75–100; BMI 22.6; BMI 20.2
--- NOTE | 2024-06-08 18:13 | CT_ITS ---
INDICATION: trauma, R chest pain EXAMINATION: CT CHEST WITHOUT CONTRAST - CT Chest W/O Contrast Injection TECHNIQUE: Helically acquired images were obtained of the chest. A radiation dose optimization technique was used for this scan. IV Contrast dosage and agent: None. COMPARISON: July 04, 2021 FINDINGS: LUNGS, PLEURA AND LARGE AIRWAYS . Minor atelectasis within the dependent portion of the right lower lobe: No masses, consolidation, or edema. No pleural effusion or thickening. No pneumothorax. THYROID: No thyroid lesions. HEART AND PERICARDIUM: Heart size is normal. No pericardial effusion. CORONARY ARTERIES: No coronary artery calcification identified VESSELS: Minor atherosclerotic change of the aorta without evidence for aneurysm MEDIASTINUM AND REGINA: No mediastinal or hilar adenopathy. Esophagus is unremarkable. No hiatal hernia. UPPER ABDOMEN: No acute pathology. BONES: Dorsal spine demonstrates minor spondylosis. No evidence for acute fracture No suspicious lytic or blastic abnormality. CT/Chest without Contrast IMPRESSION: Minor atelectasis within the central portion of the right lower lobe. Otherwise no acute cardiopulmonary pathology Electronically Signed: Ruben Parker MD at 20:12 EDT ,
--- NOTE | 2024-06-08 18:13 | CT_ITS ---
STUDY: CT BRAIN WITHOUT CONTRAST REASON FOR EXAM: Female, 88 years old. trauma RADIATION DOSAGE (If Supplied By Facility): CTDIvol = ( 44.99 ) mGy, DLP = ( 829.85 ) mGycm TECHNIQUE: Transaxial CT imaging of the brain was performed without administration of intravenous contrast material. Individualized dose optimization techniques were used for this CT. COMPARISON: No relevant priors. FINDINGS: Normal soft tissue structures. Normal calvarium. Mild coronary artery calcification Mild atrophy and moderate periventricular white matter ischemic changes. Normal basal ganglia and thalami. Normal brainstem. Normal cerebellum. Partial empty sella deformity likely of no significance There is no intracranial hemorrhage. There are no findings of an acute ischemic infarction. Small polyp or mucous retention cyst in left maxillary sinus. Postsurgical changes of the orbits CT/Brain/Head without Contrast IMPRESSION: Mild atrophy and moderate periventricular white matter ischemic changes.. No evidence for acute intracranial hemorrhage Electronically Signed: Ruben Parker MD at 19:55 EDT ,
--- NOTE | 2024-06-08 18:13 | CT_ITS ---
STUDY: CT FACIAL BONES WITHOUT CONTRAST REASON FOR EXAM: Female, 88 years old. trauma, jaw pain RADIATION DOSAGE (If Supplied By Facility): CTDIvol = ( 29.38 ) mGy, DLP = ( 547.46 ) mGycm TECHNIQUE: The patient was scanned in a multi detector CT scanner. Sagittal and coronal images were reconstructed. Individualized dose optimization techniques were used for this CT. COMPARISON: None. FINDINGS: Normal soft tissue structures. Normal orbital ross and orbital contents. Mildly depressed fracture of the distal right nasal bone without appreciable soft tissue swelling possibly representing old injury. Normal anterior nasal spine. . There is no demonstrated fracture. Small mucous retention cyst in the left maxillary sinus Incidental finding of arthritic changes of the temporomandibular joints CT/Sinus/Facial Bone IMPRESSION: Right nasal bone fracture of uncertain chronicity. 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 Electronically Signed: Ruben Parker MD at 20:06 EDT ,
--- NOTE | 2024-06-08 18:13 | CT_ITS ---
STUDY: CT CERVICAL SPINE WITHOUT CONTRAST REASON FOR EXAM: Female, 88 years old. trauma RADIATION DOSAGE (If Supplied By Facility): CTDIvol = ( 11.94 ) mGy, DLP = ( 246.81 ) mGycm TECHNIQUE: High resolution transaxial imaging was performed without contrast material. Sagittal and coronal images were reconstructed. Individualized dose optimization techniques were used for this CT. COMPARISON: None FINDINGS: Normal craniovertebral junction. Normal anterior atlantoaxial articulation. Normal odontoid process. Normal cervical lordosis. Normal vertebral bodies and posterior osseous elements. C2-3: Normal endplates. Normal disc height and morphology. Normal central canal and intervertebral neuroforamina. C3-4: Grade 1 spondylolisthesis . Narrowed disc space and minor bulging disc osteophyte complex. Normal central canal. Mild bilateral neural foraminal stenosis secondary to bony hypertrophy. C4-5: Grade 1 retrolisthesis . Narrowed disc space and bulging disc osteophyte complex.. Narrowing of the spinal canal and mild cord impingement. Severe bilateral neural foraminal stenosis secondary to bony hypertrophy C5-6: Normal endplates. Narrowed disc space and normal disc morphology. Normal central canal and intervertebral neuroforamina. C6-7: Narrowed disc space and minor endplate spurring. Normal central canal and intervertebral neuroforamina. C7-T1: Normal endplates. Normal disc height and morphology. Normal central canal and intervertebral neuroforamina. Normal visualized soft tissue structures. CT/Spine Cervical without Contras IMPRESSION: Moderate spondylosis most severe at C4-5. No acute fracture or subluxation Electronically Signed: Ruben Parker MD at 20:00 EDT Reading Location ID and State: [facility] / [place] Tel , Service support ,
--- NOTE | 2024-06-08 18:15 | ED.VIS.FALL ---
HPI HPI - Fall History of Present Illness Chief Complaint: Trauma Informant: patient and EMS Narrative Narrative: Patient brought by EMS after a fall. She tripped over a dog leash and fell onto a concrete wall. She sustained injuries to her head, face, right upper extremity, right ribs. She denies pain elsewhere. She denies loss of consciousness or vomiting. She is in a lot of pain. This is limiting the exam and the history. EMS did not give her anything for pain yet. Tetanus Immunization: Unknown [facility] Medical History (Updated 06/08/24 @ 21:[address] Bill Shen MD) Former tobacco use Anxiety Hypothyroidism Spinal stenosis Hypoparathyroidism Osteoporosis Home Medications ?Medication ?Instructions ?Recorded ?Last Taken ?Type levothyroxine 50 mcg tablet 50 mcg PO MOTUWETHFRSA THYROID 06/27/18 06/09/20 History (Synthroid) calcitriol 0.25 mcg capsule 0.5 mcg PO DAILY SUPPLEMENT 06/09/20 06/08/20 History calcium carbonate-vitamin D3 600 1 tab PO DAILY SUPPLEMENT 06/09/20 06/08/20 History mg-125 unit tablet levothyroxine 50 mcg tablet 25 mcg PO SON THYROID 06/09/20 06/07/20 History [id number] 8 mg-folic 400 1 tab PO DAILY SUPPLEMENT 06/09/20 06/08/20 History mcg-K 50 mcg-lutein 300 mcg tablet Allergy/AdvReac Type Severity Reaction Status Date / Time alendronate sodium (From Allergy Unknown Verified 06/08/24 21:16 Fosamax) amoxicillin Allergy Unknown Verified 06/08/24 21:16 doxycycline Allergy Unknown Verified 06/08/24 21:16 erythromycin base Allergy Unknown Verified 06/08/24 21:16 tetracycline Allergy Unknown Verified 06/08/24 21:16 Family History Mother Breast cancer Sister Breast cancer Sister Breast cancer Daughter Breast cancer Surgical History (Updated 06/08/24 @ 18:[address] Mary Garzon MD) History of toe surgery History of tonsillectomy and adenoidectomy Status post Mohs surgery Social History household members: none current occupational exposures/hazards: No Smoking Status: Former smoker details: No recent alcohol use substance use type: does not use ROS ROS ED Constitutional Constitutional ED: Denies chills or fever(s) Eyes Eyes: Denies change in vision or diplopia ENT ENT ED: Reports facial pain and other Details: States her teeth do not feel like they are lining up correctly ; Denies ear pain, epistaxis or rhinorrhea Cardiovascular Cardiovascular: Reports chest pain; Denies palpitations Respiratory/Chest Respiratory/Chest: Reports dyspnea; Denies cough Gastrointestinal Gastrointestinal: Denies abdominal pain, diarrhea, melena, nausea or vomiting Genitourinary Genitourinary ED: Denies dysuria or hematuria Musculoskeletal Musculoskeletal: Reports extremity pain; Denies back pain or neck pain Integumentary Reports laceration; Denies abscess, Abrasions or rash Neurologic Neurologic: Reports headache(s); Denies confusion, paresthesias or weakness EXAM Physical Exam Const Vital Signs: 06/08/24 17:59 06/08/24 17:59 06/08/24 18:56 Temperature 96.9 F L 96.9 F L Temperature Source Axillary Pulse Rate 69 74 Pulse Rate [1 (Initial Baseline)] Pulse Rate [2] Respiratory Rate 20 H Respiratory Rate [1 (Initial Baseline)] Respiratory Rate [2] Respiratory Effort Normal Respiratory Depth Normal Blood Pressure 172/94 H 152/90 H Blood Pressure [1 (Initial Baseline)] Blood Pressure Mean 120 110 Pulse Ox 99 100 Oxygen Delivery Method Room Air Room Air Oxygen Delivery Method [1 (Initial Baseline)] Oxygen Delivery Method [2] Oxygen Flow Rate (L/min) Oxygen Flow Rate (L/min) [2] 06/08/24 19:00 06/08/24 19:50 06/08/24 19:51 Temperature Temperature Source Pulse Rate 74 75 Pulse Rate [1 (Initial Baseline)] 75 Pulse Rate [2] 77 Respiratory Rate 18 17 Respiratory Rate [1 (Initial Baseline)] 27 H Respiratory Rate [2] 27 H Respiratory Effort Respiratory Depth Blood Pressure 152/90 H 164/83 H Blood Pressure [1 (Initial Baseline)] 159/82 H Blood Pressure Mean 110 Pulse Ox 99 Oxygen Delivery Method Room Air Room Air Oxygen Delivery Method [1 (Initial Baseline)] Room Air Oxygen Delivery Method [2] Non-Rebreather Oxygen Flow Rate (L/min) Oxygen Flow Rate (L/min) [2] 10 06/08/24 19:56 06/08/24 20:00 07/27/24 20:01 Temperature Temperature Source Pulse Rate 65 Pulse Rate [1 (Initial Baseline)] Pulse Rate [2] Respiratory Rate 17 Respiratory Rate [1 (Initial Baseline)] Respiratory Rate [2] Respiratory Effort Respiratory Depth Blood Pressure 145/78 H Blood Pressure [1 (Initial Baseline)] Blood Pressure Mean 100 Pulse Ox 100 Oxygen Delivery Method Nasal Cannula Room Air Oxygen Delivery Method [1 (Initial Baseline)] Oxygen Delivery Method [2] Oxygen Flow Rate (L/min) 3 Oxygen Flow Rate (L/min) [2] Positive well nourished and well developed Constitutional Narrative: Moaning in painful distress. Able to converse and follow commands and answer questions. General Appearance ED: well developed HEENT Reports TM's clear and nasal mucous membranes and turbinates normal HEENT Narrative: Complete teeth together no malocclusion no asymmetry. Can open jaw no trismus. No TMJ tenderness no mandible tenderness no signs of trauma except for the lower lip where there is a contusion and small laceration as well as a larger laceration of the forehead no crepitance or depression. No other signs of HEENT trauma. Face and Sinus: Negative for facial tenderness Tympanic Membrane ED: Yes TM's clear Eyes PERRL and EOMs intact bilaterally Visual Acuity: other Other Details: no entrapment or pain with extraocular movements Neck full ROM and supple General: Negative for tenderness Chest Wall inspection of chest normal Chest Narrative: Tender throughout right lateral chest wall which is difficult to get to because of the deformity and lack of ability to move the right upper extremity. Equal breath sounds bilaterally, with patient moaning throughout and the moans sounds equal. Chest: symmetrical chest wall rise and tenderness; Negative for crepitus Resp clear to auscultation bilaterally Resp Narrative: Tachypneic no distress, moaning in pain Percussion: other equal BS bilat Cardio no murmurs Rate: regular rate Rhythm: regular rhythm GI normal to inspection, nondistended, normoactive bowel sounds, soft to palpation and non-tender Back/Spine Cervical Spine: Negative for cervical spine tenderness Extremity Extremity Narrative: Deformity right mid humerus limited ability to move it, no tenderness at the right acromioclavicular joint over the clavicle. All compartments of the right upper arm are soft. Neurovascular intact distally in the hand except for decreased sensation throughout distal to the elbow, with a 2+ out of 4 radial pulse, painless wrist flexion extension and supination/pronation without any elbow tenderness. She is stuck in full elbow flexion and not able to move out of it. Left upper extremity and both lower extremities move fully without any difficulty or pain. Pelvis stable to AP compression. General Extremety ED: Yes tenderness Neuro oriented x3, CN's II-XII intact bilaterally, moves all extremities, no focal motor deficits and no sensory deficits noted Neuro Narrative: Decree sensation right hand diffuse nonfocal. Limited ability to test strength due to deformity limited ability to move the arm. [place] Coma Scale: document GCS findings Spontaneous Obeys Commands Oriented 15 Sensorium / Orientation: awake and alert Psych thought process normal Mood & Affect: anxious and tearful Skin no wounds Lesions: no lesions Rashes: no rashes MDM MDM MDM Narrative Medical decision making narrative: Very difficult to evaluate this patient clinically especially since with any little movement she is screaming and right upper extremity pain and she is flexed fully at the elbow limiting evaluation of most of the extremity except for the wrist and hand. For these reasons, in addition to the humerus x-ray, 2 views of which appeared to show an inferior dislocation without fracture on my interpretation, I perform CT scanning of the head, neck, face, chest. On my interpretation of the CT scans, there does not appear to be an intracranial injury, jaw dislocation, a facial fracture, or other thoracic injury. Written consent obtained from the patient and daughter regarding procedural sedation for closed reduction of the right shoulder as well as local anesthesia and suture repair of the laceration of her right forehead. See the procedure note. This was uneventful except for some mild transient hypoxemia due to shallow breathing. We quickly turned off her oxygen and then transition her to a mask and her sats came up and she recovered otherwise uneventfully. I reviewed the reports of all the CT scans, and I agree with them. There is a very minor nondisplaced nasal bone fracture, that is acute. Patient does have some bruising and tenderness there that she developed a little later confirming that it is acute. She still feels like her teeth are off, none of them are loosened, her maxillary incisors may be subluxed a little bit but they are not easily the new verbal, so I recommend follow-up with dentistry there they are tight. The injury to her lower lip is simply an abrasion there is no laceration to repair, it is bruised and swollen. Supportive care advised for that and the nose. We got her up to walker, she is very wobbly, she lives by herself daughter is here to try to help but they both think that she is going to be too much to care for at home in this condition and so they are requesting possible placement. Discussed with hospitalist who is amenable. Of note, if the patient and family were able to care for her at home, we would discharge her with outpatient orthopedic follow-up. With regards to right upper extremity neurologic deficits which were present before procedure, she does have some function but is still have decreased sensation especially in an ulnar nerve distribution. She has numbness all the way up to the elbow in this area of the arm, ulnar aspect, however. She does not have any tenderness at the elbow or a positive Tinel's sign there, it would make the most sense that this is all consistent with brachial plexus injury hopefully neuropraxia. This will need to be followed up as an outpatient if she does not have neurologic function/full sensation return with time. At this time she has trouble making a fist, she can extend her fingers, she can barely extend at the wrist but she attempts. This is all improved compared with pre-reduction. Lab Data Attestation: I reviewed the patient's lab results. Labs: Laboratory Results - last 24 hr 06/08/24 06/08/24 18:10 18:40 WBC 6.8 RBC 4.42 Hgb 13.0 Hct 39.2 MCV 88.7 MCH 29.4 MCHC 33.2 RDW Std Deviation 39.9 RDW Coeff of Rosalina 12.3 Plt Count 232 MPV 8.7 Immature Gran % (Auto) 0.700 Neut % (Auto) 63.0 Lymph % (Auto) 22.8 [place] % (Auto) 11.1 H Eos % (Auto) 1.8 Baso % (Auto) 0.6 Absolute Neuts (auto) 4.3 Absolute Lymphs (auto) 1.56 Nucleated RBC % 0 Sodium 141 Potassium 3.3 L Chloride 109 H Carbon Dioxide 24.0 Anion Gap 8 BUN 20 H Creatinine 1.06 H Estim Creat Clear Calc 27.36 Est GFR (MDRD) Af Amer 63 Est GFR (MDRD) Non-Af 52 L BUN/Creatinine Ratio 18.9 Glucose 144 H Calcium 9.7 Urine Color Yellow Urine Clarity Clear Urine pH 7.0 Ur Specific [place] 1.015 Urine Protein 15 H Urine Glucose (UA) Normal Urine Ketones Negative Urine Occult Blood 25 H Urine Nitrite Negative Urine Bilirubin Negative Urine Urobilinogen Normal Ur Leukocyte Esterase 25 H Urine RBC 0-5 SEEN Urine WBC 0-5 SEEN Ur Squamous Epith Cells 0 SEEN Urine Bacteria 0 SEEN Urine Mucus 0 SEEN Radiography Diagnostic Testing: Clinical Impression(s) from Imaging Studies Brain CT 06/08/24 18:13 IMPRESSION: Mild atrophy and moderate periventricular white matter ischemic changes.. No evidence for acute intracranial hemorrhage Electronically Signed: Ruben Parker MD at 19:55 EDT Reading Location ID and State: [address] [place] [address] Tel [phone], Service support , Cervical Spine CT 06/08/24 18:13 IMPRESSION: Moderate spondylosis most severe at C4-5. No acute fracture or subluxation Electronically Signed: Ruben Parker MD at 20:00 EDT Reading Location ID and State: [address] [place] [address] Tel [phone], Service support , Chest CT 06/08/24 18:13 IMPRESSION: Minor atelectasis within the central portion of the right lower lobe. Otherwise no acute cardiopulmonary pathology Electronically Signed: Ruben Parker MD at 20:12 EDT Reading Location ID and State: [address] [place] [address] Tel [phone], Service support , ADDENDUM: 06/08/242052 IMPRESSION: undefined Facial/Sinus 06/08/24 18:13 IMPRESSION: Right nasal bone fracture of uncertain chronicity. 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 Electronically Signed: Ruben Parker MD at 20:06 EDT Reading Location ID and State: [address] [place] [address] Tel [phone], Service support , Humerus X-Ray 06/08/24 18:42 IMPRESSION: Luxatio erecta as described. Post reduction images recommended. Electronically Signed: Carlos Guaman MD at 19:24 EDT , 2 view postreduction right shoulder x-rays on my interpretation show good reduction and no fracture Management Discussion w/another healthcare provider: Hospitalist Procedures Lacerations R forehead: Length: 3 cm Depth: Sub Q Shape: Linear Prep: Sterile Conditions and Chlorhexadine (Scrubbed) Laceration repair: Irrigated, Lidocaine (1%, 4 cc), Local and Skin sutures Irrigated (ml): 60 Number of Sutures/Sailaja: 7 Suture Information: Ethilon, Simple and 6-0 Procedural Sedation 1 (Initial Baseline): Consent Signed: Yes Any Problems With Anesthesia: No You/Your family experience fever (hyperthermia) w/anesthesia: No Sedation medication: Propofol Dose: 60 Route: IV Total Moderate Sedation Units: 18 Maliampati Score: Class III ASA Classification: II Comment:: On monitor with prophylactic nasal cannula oxygenation and IV fluids, end-tidal CO2 monitoring, airway equipment at the bedside. Shallow breathing resulting in transient hypoxemia less than 1 minute, we turned nasal cannula up before we transitioned her to a nonrebreather which was on for a minute or 2 before we put her back on the nasal cannula. Tolerated well with no other complications. Other Procedures Procedure(s): Right shoulder dislocation closed reduction: Initially attempting push and pull technique to convert inferior dislocation to an anterior, I did not feel a good feedback from this, then performing Milch and external rotation maneuver, also no reduction, so then with her arm flexed forward and up and mild external rotation, I was able to feel the humeral head plainly in her axilla, I was able to apply some gentle distraction and manually reduce this into the glenoid with a good physical feedback obtained, and placing her elbow back down to her side, the deformity is resolved. Postreduction 2 view shoulder x-ray mitral rotation shows good reduction no fracture. 2+/4 radial pulse. See above for repeat neurologic exam. 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, Fall from slip, trip, or stumble, Debility Prescriptions: No Action levothyroxine [Synthroid] 50 MCG tablet 50 mcg PO MOTUWETHFRSA Patient Comments: Rx Instructions: 1/2 TAB ON SUNDAYS AND 1 TAB MONDAY THROUGH MONDAY calcitriol 0.25 MCG capsule 0.5 mcg PO DAILY calcium carbonate-vitamin D3 1 EACH tablet 1 tab PO DAILY [id number] K-lut 1 EACH tablet 1 tab PO DAILY levothyroxine 50 MCG tablet 25 mcg PO SON Rx Instructions: 1/2 TAB ON SUNDAYS AND 1 TAB MONDAY THROUGH MONDAY Primary Care Provider: Lopez Morel Referrals: Lopez Morel DO [Primary Care Provider] - Print Language: [place] Disposition Disposition: Acute Care [facility]
[2024-06-08 18:19] LABS: Absolute Lymphocyte Count 1.56 X10^3/uL (0.83-4.51); Absolute Neutrophil Count 4.3 X10^3/uL (2.0-7.7); Basophil# 0.04 X10^3/uL; Basophil% 0.6 % (0-1); Eosinophil# 0.12 X10^3/uL; Eosinophils% 1.8 % (0-5); Hematocrit 39.2 % (37-47); Lymphocyte # 1.56 X10^3/ul (0.83-4.51); Lymphocyte % 22.8 % (19-41); Mean Corp Hgb Conc 33.2 g/dL (32-36); Mean Corpuscular Hgb 29.4 pg (27.0-32.0); Mean Corpuscular Volume 88.7 fL (81-99); Mean Platelet Vol. 8.7 fl (6.2-12.0); Monocyte# 0.76 X10^3/uL; Monocyte% 11.1 % (0-10); NRBC Flagged by Analyzer 0 % (0-5); Neutrophil # 4.31 X10^3/uL (2.7-7.7); Platelet Count 232 K/mm3 (150-450); RBC Distribution Width CV 12.3 % (11.6-14.6); RBC Distribution Width SD 39.9 fl (35.1-43.9); Red Blood Count 4.42 M/mm3 (4.2-5.4); White Blood Count 6.8 K/mm3 (4.4-11.0)
[2024-06-08] MEDS: Ondansetron 4 MG/2 ML Vial IV (18:21)
[2024-06-08] MEDS: fentaNYL 100 MCG/2 ML Ampul 50 MCG IV (18:21)
[2024-06-08] MEDS: Lidocaine 1% (20 ml mdv) 20 ML Vial INFILT (18:22)
[2024-06-08] MEDS: Lidocaine/Epi/Tetracaine 50 ML 1 APPLIC TOPICAL (18:23)
[2024-06-08] MEDS: Diphth,Pertuss(Acell),Tet Vac 0.5 ML Vial IM (18:24)
--- NOTE | 2024-06-08 18:42 | RAD_ITS ---
STUDY: X-RAY - RIGHT HUMERUS REASON FOR EXAM: Female, 88 years old. Trauma. Pain. TECHNIQUE: 2 view(s) of the humerus. COMPARISON: None. FINDINGS: Osteopenia. Humeral head is dislocated inferiorly in relation to the glenoid (luxatio erecta). Postreduction images are recommended. Proximal soft tissue swelling. RAD/Humerus min 2 Views IMPRESSION: Luxatio erecta as described. Post reduction images recommended. Electronically Signed: Carlos Guaman MD at 19:24 EDT ,
[2024-06-08 18:44] LABS: Bacteria 0 SEEN /hpf (None Seen); Mucous, Urine 0 SEEN /hpf (<or=2+); Squamous Epithelial Cells - UA 0 SEEN /hpf (5-10)
[2024-06-08 18:47] LABS: Glucose, Dipstick Normal (Normal); Ketone-Dipstick Negative (Negative); Leukocyte Esterase-Dipstick 25 /ul (Negative); Nitrite-Dipstick Negative (Negative); Occult Blood-Urine 25 /ul (Negative); Protein-Dipstick 15 mg/dl (Negative); Specific Gravity, Urine 1.015 (1.002-1.030); Urine Bilirubin Dipstick Negative (Negative); Urine Urobilinogen Normal (Normal)
[2024-06-08 18:55] LABS: Anion Gap 8 (5-15); BUN 20 mg/dL (7-18); BUN/Creat Ratio 18.9 RATIO (10-20); Calcium,Total 9.7 mg/dL (8.5-10.1); Chloride 109 mmol/L (98-107); Creatinine, Serum 1.06 mg/dL (0.55-1.02); EST Glomerular Filtration Rate 52 mL/min (>60); Est Glom Filt Rate - Afr Amer 63 mL/min (>60); Estimated Creatinine Clearance 27.36 ml/min; Glucose 144 mg/dL (74-106); Potassium 3.3 mmol/L (3.5-5.1); Sodium Level 141 mmol/L (136-145)
[2024-06-08 19:02] LABS: Color, Urine Yellow (Yellow); Red Blood Cells-Urine 0-5 SEEN /hpf (0-5); Urine Clarity Clear (Clear); White Blood Cells 0-5 SEEN /hpf (0-5)
[2024-06-08] MEDS: fentaNYL 100 MCG/2 ML Ampul 25 MCG IV (20:00)
[2024-06-08] MEDS: Propofol 200 MG/20 ML Vial IV BOLUS (20:07)
--- NOTE | 2024-06-08 20:09 | RAD_ITS ---
STUDY: X-RAY - RIGHT SHOULDER REASON FOR EXAM: Female, 88 years old. postreduction TECHNIQUE: Portable view(s) of the shoulder. COMPARISON: None. FINDINGS: Previously noted dislocated shoulder has been reduced with pentecostalism of joint space to normal anatomic configuration Normal acromioclavicular joint. Normal acromion. Normal humeral head and visualized proximal humerus. The soft tissue structures are unremarkable. Normal visualized pulmonary apex. RAD/Shoulder min 2 Views IMPRESSION: Status post reduction of right shoulder dislocation without evidence for acute fracture Electronically Signed: Ruben Parker MD at 21:55 EDT ,
--- NOTE | 2024-06-08 21:08 | HP.PCM.HOS_ITS ---
HPI - General General Date of Admission: 06/08/24 Date of Service: 06/08/24 Chief Complaint: Mechanical fall with debility HPI Narrative VARGAS SUTHERLAND, is a 88 F who presented to [facility] ED on 06/08/2024 after a mechanical fall at home. Patient lives at home alone, has daughters who live in the area. She was brought in by EMS after a fall where she tripped over a dog leash and fell into a concrete wall. She sustained injuries to her head, face, right arm and right ribs. On arrival to the ED she was in severe pain primarily in her right arm. X-ray showed that she had an inferior dislocation of her right shoulder. Consent was obtained from patient and daughter to have shoulder reduction under procedural sedation, and she tolerated the reduction without issue. Arm was then placed in a sling for stabilization. Patient did note some decreased sensation in the ulnar nerve distribution from the elbow down to the hand but had no other significant findings on right arm exam. She had imaging done of the brain, C-spine, face/sinuses and chest that were notable for only a small right nasal bone fracture, were otherwise unremarkable. Exam was notable for some nasal swelling, a small lip laceration with swelling and a right forehead laceration that was sutured by the ED physician. After the right shoulder was reduced, they tried to get her up to use her walker but she was very wobbly and both patient and daughter were concerned about her going home, so hospitalist was contacted for admission. I saw the patient at bedside in the ED, daughter was present. Patient was sitting up comfortably in bed, conversing normally, no acute distress. She reported feeling like her face was swollen, but she otherwise denied any acute pain or discomfort. She stated that her right arm and shoulder felt significantly improved from previous. She otherwise denied any other acute concerns. [facility] Medical History (Updated 06/09/24 @ 00:[address] Jd Castanon, DO) Former tobacco use Anxiety Hypothyroidism Spinal stenosis Hypoparathyroidism Osteoporosis Home Medications ?Medication ?Instructions ?Recorded ?Last Taken ?Type levothyroxine 50 mcg tablet 50 mcg PO MOTUWETHFRSA THYROID 06/27/18 06/09/20 History (Synthroid) calcitriol 0.25 mcg capsule 0.5 mcg PO DAILY SUPPLEMENT 06/09/20 06/08/20 History levothyroxine 50 mcg tablet 25 mcg PO SON THYROID 06/09/20 06/07/20 History knbyungz-ikso-wtaa 8 mg-folic 400 1 tab PO DAILY SUPPLEMENT 06/09/20 06/08/20 History mcg-K 50 mcg-lutein 300 mcg tablet aspirin 81 mg capsule 81 mg PO DAILY 06/08/24 Unknown History calcium citrate 200 mg (950 mg) 200 mg PO DAILY 06/08/24 Unknown History tablet cholecalciferol (vitamin D3) 10 10 mcg PO DAILY 06/08/24 Unknown History mcg (400 unit) capsule Allergy/AdvReac Type Severity Reaction Status Date / Time alendronate sodium (From Allergy Unknown Verified 06/08/24 21:16 Fosamax) amoxicillin Allergy Unknown Verified 06/08/24 21:16 doxycycline Allergy Unknown Verified 06/08/24 21:16 erythromycin base Allergy Unknown Verified 06/08/24 21:16 tetracycline Allergy Unknown Verified 06/08/24 21:16 Family History Mother Breast cancer Sister Breast cancer Sister Breast cancer Daughter Breast cancer Surgical History (Updated 06/08/24 @ 18:[address] Mary Garzon MD) History of toe surgery History of tonsillectomy and adenoidectomy Status post Mohs surgery Social History household members: none current occupational exposures/hazards: No Smoking Status: Former smoker details: No recent alcohol use substance use type: does not use ROS Constitutional Constitutional: Reports weakness; Denies chills, fatigue or fever(s) Eyes Eyes: Denies change in vision Cardiovascular Cardiovascular: Denies chest pain Respiratory/Chest Respiratory/Chest: Denies shortness of breath at rest Gastrointestinal Gastrointestinal: Denies abdominal pain Neurologic Neurologic: Denies dizziness, focal weakness or headache(s) Vital Signs Vital Signs Vital Signs: 06/08/24 17:59 06/08/24 17:59 06/08/24 18:56 Temperature 96.9 F L 96.9 F L Temperature Source Axillary Pulse Rate 69 74 Pulse Rate [1 (Initial Baseline)] Pulse Rate [2] Respiratory Rate 20 H Respiratory Rate [1 (Initial Baseline)] Respiratory Rate [2] Respiratory Effort Normal Respiratory Depth Normal Blood Pressure 172/94 H 152/90 H Blood Pressure [1 (Initial Baseline)] Blood Pressure Mean 120 110 Pulse Ox 99 100 Oxygen Delivery Method Room Air Room Air Oxygen Delivery Method [1 (Initial Baseline)] Oxygen Delivery Method [2] Oxygen Flow Rate (L/min) Oxygen Flow Rate (L/min) [2] 06/08/24 19:00 06/08/24 19:50 06/08/24 19:51 Temperature Temperature Source Pulse Rate 74 75 Pulse Rate [1 (Initial Baseline)] 75 Pulse Rate [2] 77 Respiratory Rate 18 17 Respiratory Rate [1 (Initial Baseline)] 27 H Respiratory Rate [2] 27 H Respiratory Effort Respiratory Depth Blood Pressure 152/90 H 164/83 H Blood Pressure [1 (Initial Baseline)] 159/82 H Blood Pressure Mean 110 Pulse Ox 99 Oxygen Delivery Method Room Air Room Air Oxygen Delivery Method [1 (Initial Baseline)] Room Air Oxygen Delivery Method [2] Non-Rebreather Oxygen Flow Rate (L/min) Oxygen Flow Rate (L/min) [2] 10 06/08/24 19:56 06/08/24 20:00 06/08/24 20:01 Temperature Temperature Source Pulse Rate 65 Pulse Rate [1 (Initial Baseline)] Pulse Rate [2] Respiratory Rate 17 Respiratory Rate [1 (Initial Baseline)] Respiratory Rate [2] Respiratory Effort Respiratory Depth Blood Pressure 145/78 H Blood Pressure [1 (Initial Baseline)] Blood Pressure Mean 100 Pulse Ox 100 Oxygen Delivery Method Nasal Cannula Room Air Oxygen Delivery Method [1 (Initial Baseline)] Oxygen Delivery Method [2] Oxygen Flow Rate (L/min) 3 Oxygen Flow Rate (L/min) [2] Weight Weight: 52.7 kg Body Mass Index (BMI) 22.6 Physical Exam Const alert, oriented x3 and no apparent distress Constitutional Narrative: Pleasant elderly female, thin, sitting up comfortably in bed, conversing normally, no acute distress. General Appearance: cooperative and comfortable HEENT normocephalic, hearing grossly normal bilaterally and moist oral mucous membranes HEENT Narrative: Mild nasal swelling and lower lip laceration with swelling noted. Forehead laceration sutured in the ED and appears stable. Eyes PERRL, EOMs intact bilaterally and conjunctivae normal Neck full ROM Chest inspection of chest normal Resp normal respiratory effort, normal air movement, no use of accessory muscles and clear to auscultation bilaterally Cardio regular rate, regular rhythm, no murmurs and peripheral pulses 2+ throughout GI normal to inspection, nondistended, normoactive bowel sounds, soft to palpation, non-tender and non-distended Back/Spine normal ROM Extremity Extremity Narrative: Right arm stable in sling. Neuro no focal motor deficits Speech: speech normal Psych mental status grossly normal Results Lab / Micro Data 06/08/24 18:10 06/08/24 18:10 Labs: Laboratory Results - last 24 hr 06/08/24 18:10: WBC 6.8, RBC 4.42, Hgb 13.0, Hct 39.2, MCV 88.7, MCH 29.4, MCHC 33.2, RDW Std Deviation 39.9, RDW Coeff of Rosal[place] 12.3, Plt Count 232, MPV 8.7, Immature Gran % (Auto) 0.700, Neut % (Auto) 63.0, Lymph % (Auto) 22.8, [place] % (Auto) 11.1 H, Eos % (Auto) 1.8, Baso % (Auto) 0.6, Absolute Neuts (auto) 4.3, Absolute Lymphs (auto) 1.56, Nucleated RBC % 0, Sodium 141, Potassium 3.3 L, C hloride 109 H, Carbon Dioxide 24.0, Anion Gap 8, BUN 20 H, Creatinine 1.06 H, Estim Creat Clear Calc 27.36, Est GFR (MDRD) Af Amer 63, Est GFR (MDRD) Non-Af 52 L, BUN/Creatinine Ratio 18.9, Glucose 144 H, Calcium 9.7 06/08/24 18:40: Urine Color Yellow, Urine Clarity Clear, Urine pH 7.0, Ur Specific [place] 1.015, Urine Protein 15 H, Urine Glucose (UA) Normal, Urine Ketones Negative, Urine Occult Blood 25 H, Urine Nitrite Negative, Urine Bilirubin Negative, Urine Urobilinogen Normal, Ur Leukocyte Esterase 25 H, Urine RBC 0-5 SEEN, Urine WBC 0-5 SEEN, Ur Squamous Epith Cells 0 SEEN, Urine Bacteria 0 SEEN, Urine Mucus 0 SEEN Imaging Radiology Impression Brain CT 06/08/24 18:13 IMPRESSION: Mild atrophy and moderate periventricular white matter ischemic changes.. No evidence for acute intracranial hemorrhage Electronically Signed: Ruben Parker MD at 19:55 EDT , Cervical Spine CT 06/08/24 18:13 IMPRESSION: Moderate spondylosis most severe at C4-5. No acute fracture or subluxation Electronically Signed: Ruben Parker MD at 20:00 EDT , Chest CT 06/08/24 18:13 IMPRESSION: Minor atelectasis within the central portion of the right lower lobe. Otherwise no acute cardiopulmonary pathology Electronically Signed: Ruben Parker MD at 20:12 EDT , ADDENDUM: 06/08/242052 IMPRESSION: undefined Facial/Sinus 06/08/24 18:13 IMPRESSION: Right nasal bone fracture of uncertain chronicity. 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 Electronically Signed: Ruben Parker MD at 20:06 EDT Reading Location ID and State: [facility] / [place] Tel [phone], Service support , Humerus X-Ray 06/08/24 18:42 IMPRESSION: Luxatio erecta as described. Post reduction images recommended. Electronically Signed: Carlos Guaman MD at 19:24 EDT , Assessment & Plan Assessment/Plan (1) Fall from slip, trip, or stumble: (2) Debility: (3) Closed inferior dislocation of right shoulder: (4) Closed fracture nasal bone: (5) Forehead laceration: PLAN: Plan Patient is an 88-year-old female [facility] after a mechanical fall at home. 1. Mechanical fall with right shoulder inferior dislocation and small nasal fracture with face lacerations, acute on chronic debility ? Admit under observation status to [facility]. PT/OT/case management consulted. Right shoulder was reduced in the ED under procedural anesthesia with good result, placed in sling afterward for stabilization. Will likely need orthopedic evaluation in the future but can likely have them evaluate in outpatient setting after this hospitalization. Patient lives at home alone and uses a walker for ambulation; patient and daughter requesting SNF on discharge if she qualifies. Will give 3 doses of IV Toradol for pain and swelling. Further pain control with scheduled Tylenol, oxycodone as needed and IV Dilaudid as needed. 2. Hypoparathyroidism with osteoporosis ? Stable. Continue home calcitriol, calcium citrate and vitamin D3. 3. Hypothyroidism ? Continue home Synthroid. 4. CKD stage III-IV ? Creatinine 1.06 on admit, at baseline. Stable. DVT prophylaxis: Heparin subcu CODE STATUS: Full code, verified Expected disposition: SNF, 1 to 2 days Total clinical time spent by myself addressing the patient's medical issues, reviewing all the data, and collaborating with patient's care team: 55 minutes. Charges/Coding Visit Charges Inpatient E&M: 43529 Init Hosp L2
[2024-06-08] MEDS: Ketorolac 15 MG/ML Vial IV (22:58)
[2024-06-08] MEDS: Acetaminophen 500 MG Tablet 1000 MG PO (22:58)
[2024-06-08] MEDS: MELATONIN 3 MG TABLET PO (23:01)
[2024-06-08] MEDS: Calcitriol 0.25 MCG Capsule 0.5 MCG PO (23:05)
[2024-06-09] MEDS: oxyCODONE 5 MG Tablet PO (01:04)
[2024-06-09] MEDS: Acetaminophen 500 MG Tablet 1000 MG PO ×3 (06:17→22:59)
[2024-06-09] MEDS: Ketorolac 15 MG/ML Vial IV ×2 (06:17→12:38)
[2024-06-09] MEDS: Levothyroxine 25 MCG TABLET PO (06:18)
[2024-06-09 06:25] VITALS: BP 125/72; PULSE 79; RESP 16; TEMP 36.5; O2SAT 95
[2024-06-09 06:26] LABS: Hematocrit 35.5 % (37-47); Mean Corp Hgb Conc 33.8 g/dL (32-36); Mean Corpuscular Hgb 30.2 pg (27.0-32.0); Mean Corpuscular Volume 89.4 fL (81-99); Platelet Count 189 K/mm3 (150-450); RBC Distribution Width CV 12.4 % (11.6-14.6); RBC Distribution Width SD 40.4 fl (35.1-43.9); Red Blood Count 3.97 M/mm3 (4.2-5.4); White Blood Count 9.1 K/mm3 (4.4-11.0)
[2024-06-09 06:49] LABS: Anion Gap 4 (5-15); BUN 16 mg/dL (7-18); BUN/Creat Ratio 16.2 RATIO (10-20); Calcium,Total 8.5 mg/dL (8.5-10.1); Chloride 110 mmol/L (98-107); Creatinine, Serum 0.99 mg/dL (0.55-1.02); EST Glomerular Filtration Rate 57 mL/min (>60); Est Glom Filt Rate - Afr Amer 69 mL/min (>60); Glucose 126 mg/dL (74-106); Potassium 3.7 mmol/L (3.5-5.1); Sodium Level 141 mmol/L (136-145)
[2024-06-09 08:05] VITALS: BP 124/65; PULSE 71; RESP 16; TEMP 36.7; O2SAT 98
[2024-06-09] MEDS: Heparin Injection (Vial) 5,000 UNIT/ML VIAL 5000 UNIT SC ×2 (08:25→23:00)
[2024-06-09] MEDS: Aspirin 81 MG TAB.CHEW PO (08:25)
[2024-06-09] MEDS: Calcium Carbonate 500 MG Tablet PO (08:25)
--- NOTE | 2024-06-09 11:05 | PCM.PN.HOSP ---
Reason for Visit Reason for Visit: Diagnoses Other malaise (06/08/24) Laceration without foreign body of other part of head, initial encounter (06/08/24) Fracture of nasal bones, initial encounter for closed fracture (06/08/24) Inferior dislocation of right humerus, initial encounter (06/08/24) Fall on same level from slipping, tripping and stumbling without subsequent striking against object, initial encounter (06/08/24) Subjective Subjective Patient was seen and examined today, she complains of some jaw discomfort and states her bite is not quite correct, x-rays did not show any evidence of facial fractures except for her nose. Patient was unstable walking with physical therapy today, I have elected to keep the patient in the hospital at this time and reevaluate her tomorrow. Objective Data Objective Data Vital Signs: Vital Signs Temp Pulse Resp BP Pulse Ox O2 Del Method O2 Flow Rate 98.1 F 71 16 124/65 H 98 Room Air 3 06/09/24 08:05 06/09/24 08:05 06/09/24 08:05 06/09/24 08:05 06/09/24 08:05 06/09/24 08:05 06/08/24 19:56 Oxygen Flow Rate (L/min) [2] 10 Oxygen Flow Rate (L/min) 3 Oxygen Delivery Method [2] Non-Rebreather Oxygen Delivery Method [1 ( Room Air Initial Baseline)] Oxygen Delivery Method Room Air Weight: 47.185 kg Body Mass Index (BMI) 20.2 Intake & Output: Intake and Output for Last 24 Hours 06/07/24 06/08/24 06/09/24 23:59 23:59 23:59 Intake Total 200 / 200 200 / 200 Balance 200 / 200 200 / 200 Lab / Micro Data 06/09/24 05:37 06/09/24 05:37 Labs: Laboratory Results - last 24 hr 06/08/24 18:10: WBC 6.8, RBC 4.42, Hgb 13.0, Hct 39.2, MCV 88.7, MCH 29.4, MCHC 33.2, RDW Std Deviation 39.9, RDW Coeff of Rosalina 12.3, Plt Count 232, MPV 8.7, Immature Gran % (Auto) 0.700, Neut % (Auto) 63.0, Lymph % (Auto) 22.8, [place] % (Auto) 11.1 H, Eos % (Auto) 1.8, Baso % (Auto) 0.6, Absolute Neuts (auto) 4.3, Absolute Lymphs (auto) 1.56, Nucleated RBC % 0, Sodium 141, Potassium 3.3 L, Chloride 109 H, Carbon Dioxide 24.0, Anion Gap 8, BUN 20 H, Creatinine 1.06 H, Estim Creat Clear Calc 27.36, Est GFR (MDRD) Af Amer 63, Est GFR (MDRD) Non-Af 52 L, BUN/Creatinine Ratio 18.9, Glucose 144 H, Calcium 9.7 06/08/24 18:40: Urine Color Yellow, Urine Clarity Clear, Urine pH 7.0, Ur Specific [place] 1.015, Urine Protein 15 H, Urine Glucose (UA) Normal, Urine Ketones Negative, Urine Occult Blood 25 H, Urine Nitrite Negative, Urine Bilirubin Negative, Urine Urobilinogen Normal, Ur Leukocyte Esterase 25 H, Urine RBC 0-5 SEEN, Urine WBC 0-5 SEEN, Ur Squamous Epith Cells 0 SEEN, Urine Bacteria 0 SEEN, Urine Mucus 0 SEEN 06/09/24 05:37: WBC 9.1, RBC 3.97 L, Hgb 12.0, Hct 35.5 L, MCV 89.4, MCH 30.2, MCHC 33.8, RDW Std Deviation 40.4, RDW Coeff of Rosalina 12.4, Plt Count 189, MPV 9.0, Sodium 141, Potassium 3.7, Chloride 110 H, Carbon Dioxide 27.0, Anion Gap 4 L, BUN 16, Creatinine 0.99, Estim Creat Clear Calc 29.30, Est GFR (MDRD) Af Amer 69, Est GFR (MDRD) Non-Af 57 L, BUN/Creatinine Ratio 16.2, Glucose 126 H, Calcium 8.5 Radiography Diagnostic Testing: Radiology Impression Brain CT 06/08/24 18:13 IMPRESSION: Mild atrophy and moderate periventricular white matter ischemic changes.. No evidence for acute intracranial hemorrhage Electronically Signed: Ruben Parker MD at 19:55 EDT Reading Location ID and State: [facility] / [place] Tel , Service support , Cervical Spine CT 06/08/24 18:13 IMPRESSION: Moderate spondylosis most severe at C4-5. No acute fracture or subluxation Electronically Signed: Ruben Parker MD at 20:00 EDT , Chest CT 06/08/24 18:13 IMPRESSION: Minor atelectasis within the central portion of the right lower lobe. Otherwise no acute cardiopulmonary pathology Electronically Signed: Ruben Parker MD at 20:12 EDT , ADDENDUM: 06/08/242052 IMPRESSION: undefined ADDENDUM: 06/08/242117 IMPRESSION: Minor atelectasis within the central portion of the right lower lobe. Otherwise no acute cardiopulmonary pathology Electronically Signed: Ruben Parker MD at 20:12 EDT , ADDENDUM: 06/08/242117 IMPRESSION: undefined Facial/Sinus 06/08/24 18:13 IMPRESSION: Right nasal bone fracture of uncertain chronicity. 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 Electronically Signed: Ruben Parker MD at 20:06 EDT Reading Location ID and State: [facility] / [place] Tel [phone], Service support , Humerus X-Ray 06/08/24 18:42 IMPRESSION: Luxatio erecta as described. Post reduction images recommended. Electronically Signed: Carlos Guaman MD at 19:24 EDT , Shoulder X-Ray 06/08/24 20:09 IMPRESSION: Status post reduction of right shoulder dislocation without evidence for acute fracture Electronically Signed: Ruben Parker MD at 21:55 EDT Reading Location ID and State: [facility] / [place] Tel , Service support , Physical Exam Const alert, oriented x3, no apparent distress and healthy appearing General Appearance: cooperative, well kempt and well developed Orientation / Consciousness: awake, oriented to person, oriented to place and oriented to time HEENT normocephalic and moist oral mucous membranes HEENT Narrative: Patient has surgical gauze wrapped around her forehead and scalp, this was not removed for examination of the area Head and Scalp: normocephalic Eyes PERRL, EOMs intact bilaterally and conjunctivae normal Neck supple, no JVD, thyroid normal and no carotid bruits General: trachea midline Resp normal respiratory effort, no retractions, no use of accessory muscles and clear to auscultation bilaterally Auscultation: Negative for rales, rhonchi or wheezes Cardio regular rate, regular rhythm, S1 normal heart sound, S2 normal heart sound, no murmurs, no rub and no gallops GI normal to inspection, nondistended, normoactive bowel sounds, soft to palpation, non-tender and non-distended Extremity Extremity Narrative: Patient's right shoulder is in a shoulder immobilizer. Skin no rashes or lesions noted General Skin Exam: no breakdown Neuro oriented x3, CN's II-XII intact bilaterally, moves all extremities, no focal motor deficits and no sensory deficits noted Sensorium / Orientation: awake, alert, oriented to person, oriented to place and oriented to time Speech: speech normal Psych affect normal Assessment & Plan Assessment/Plan (1) Closed inferior dislocation of right shoulder: PLAN: Plan 1. 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
[2024-06-09] MEDS: 0.9% Saline Lock 10 ML Syringe IV (12:39)
[2024-06-09 14:00] VITALS: BP 140/77; PULSE 71; RESP 18; TEMP 36.7; O2SAT 100
[2024-06-09 22:57] VITALS: BP 124/81; PULSE 66; RESP 16; TEMP 37.2; O2SAT 98
[2024-06-09] MEDS: Calcitriol 0.25 MCG Capsule 0.5 MCG PO (22:59)
[2024-06-10 05:38] VITALS: BP 134/75; PULSE 69; RESP 16; TEMP 36.8; O2SAT 94
[2024-06-10] MEDS: Acetaminophen 500 MG Tablet 1000 MG PO ×3 (05:42→21:32)
[2024-06-10] MEDS: Levothyroxine 50 MCG Tablet PO (05:42)
[2024-06-10 07:26] VITALS: O2SAT 96
[2024-06-10 08:36] VITALS: BP 132/71; PULSE 66; RESP 16; TEMP 36.6; O2SAT 95
[2024-06-10] MEDS: Heparin Injection (Vial) 5,000 UNIT/ML VIAL 5000 UNIT SC ×2 (08:39→21:28)
[2024-06-10] MEDS: Aspirin 81 MG TAB.CHEW PO (08:39)
--- NOTE | 2024-06-10 11:03 | CASEMGMT ---
Social Work- SW met with pt and dtr. Pt and dtr both had concerns in regards to experiences while at [facility]. SW called Jersey Dumont, pt advocate, and completed referral. A list of SNF providers including quality and resource use data and consistent with the patient?s preferred geographic region, medical needs, and insurance network were [facility]. Pt F[facility] is [facility]. Second choice [facility]. Referral completed to [facility]. SHANIQUE Keys
[2024-06-10 15:20] VITALS: BP 161/83; PULSE 72; RESP 18; TEMP 36.6; O2SAT 95
--- NOTE | 2024-06-10 15:26 | CASEMGMT ---
EVETTE CM in to discuss PERRY form with patient. RN CM explained PERRY form, patient voiced understanding. Pt signed form and filed in chart. Pt provided with a copy of signed PERRY form. Patient had no further questions or concerns at this time.
--- NOTE | 2024-06-10 15:36 | PN.HOSP_ITS ---
Reason for Visit Reason for Visit: Diagnoses Other malaise (06/08/24) Laceration without foreign body of other part of head, initial encounter (06/08/24) Fracture of nasal bones, initial encounter for closed fracture (06/08/24) Inferior dislocation of right humerus, initial encounter (06/08/24) Fall on same level from slipping, tripping and stumbling without subsequent striking against object, initial encounter (06/08/24) Subjective Subjective Patient was seen and examined today, talked with her daughter who was in the room today. It appears that the patient will need to go to an extended care facility for short-term rehab services, she lives by herself and her house is not amendable to her disability at this time. We are awaiting word from her insurance company on whether she can go to [facility] [employer] [facility] Objective Data Objective Data Vital Signs: Vital Signs Temp Pulse Resp BP Pulse Ox O2 Del Method O2 Flow Rate 98 F 72 18 161/83 H 95 Room Air 3 06/10/24 15:20 06/10/24 15:20 06/10/24 15:20 06/10/24 15:20 06/10/24 15:20 06/10/24 15:20 06/08/24 19:56 Oxygen Flow Rate (L/min) [2] 10 Oxygen Flow Rate (L/min) 3 Oxygen Delivery Method [2] Non-Rebreather Oxygen Delivery Method [1 ( Room Air Initial Baseline)] Oxygen Delivery Method Room Air Weight: 47.185 kg Body Mass Index (BMI) 20.2 Intake & Output: Intake and Output for Last 24 Hours 06/08/24 06/09/24 06/10/24 23:59 23:59 23:59 Intake Total 200 / 200 600 / 600 120 / 120 Output Total 800 / 800 Balance 200 / 200 -200 / -200 120 / 120 Lab / Micro Data 06/09/24 05:37 06/09/24 05:37 Physical Exam Const alert, no apparent distress, average body habitus and healthy appearing General Appearance: cooperative, well kempt and well developed Orientation / Consciousness: awake, oriented to person and oriented to place HEENT normocephalic and moist oral mucous membranes HEENT Narrative: Patient has areas of ecchymosis over her face including her right upper lip, there is a bandage over the patient's forehead area which was not removed for examination. Eyes PERRL, EOMs intact bilaterally and conjunctivae normal Neck supple, no JVD and thyroid normal General: trachea midline Resp normal respiratory effort, no retractions, no use of accessory muscles and clear to auscultation bilaterally Auscultation: Negative for rales, rhonchi or wheezes Cardio regular rate, regular rhythm, S1 normal heart sound, S2 normal heart sound, no murmurs, no rub and no gallops GI normal to inspection, nondistended, normoactive bowel sounds, soft to palpation, non-tender and non-distended Extremity no clubbing, cyanosis or edema Extremity Narrative: Patient's right arm is in a sling at this time Skin no rashes or lesions noted General Skin Exam: no breakdown Neuro CN's II-XII intact bilaterally, no focal motor deficits and no sensory deficits noted Neuro Narrative: 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 Status post inferior dislocation of the right shoulder-PT and OT will continue to see the patient, she will remain in the hospital at this time, the plan is for her to go to a senior living facility for short-term rehab services #2 generalized debility secondary to multiple injuries from fall at home-PT and OT will see the patient, she will need to go to a skilled facility for short- term rehab services #3 facial contusions/right nasal fracture-patient has some bruised areas over her face, supportive care will be given #4 suspected acute right upper extremity brachial plexus neuropathy-complicates care, management, recovery, and prognosis, PT and OT will continue to work with the patient, I talked the patient's daughter about this #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
[2024-06-10] MEDS: Calcitriol 0.25 MCG Capsule 0.5 MCG PO (21:28)
[2024-06-10 21:46] VITALS: BP 157/90; PULSE 66; RESP 16; TEMP 36.9; O2SAT 96
[2024-06-11 04:58] VITALS: BP 139/75; PULSE 69; RESP 16; TEMP 36.9; O2SAT 95
[2024-06-11] MEDS: Levothyroxine 50 MCG Tablet PO (04:59)
[2024-06-11] MEDS: 0.9% Saline Lock 10 ML Syringe IV (05:01)
[2024-06-11] MEDS: Acetaminophen 500 MG Tablet 1000 MG PO ×3 (05:01→22:31)
[2024-06-11 07:25] VITALS: O2SAT 96
[2024-06-11 09:03] VITALS: BP 129/81; PULSE 64; RESP 18; TEMP 36.6; O2SAT 96
[2024-06-11] MEDS: Heparin Injection (Vial) 5,000 UNIT/ML VIAL 5000 UNIT SC ×2 (09:09→22:31)
[2024-06-11] MEDS: Aspirin 81 MG TAB.CHEW PO (09:09)
--- NOTE | 2024-06-11 11:39 | CASEMGMT ---
Social Work- SW sent updates to [facility]. [facility] states no precert at this time. SHANIQUE Keys
--- NOTE | 2024-06-11 12:57 | PCM.PN.HOSP ---
Reason for Visit Reason for Visit: Diagnoses Other malaise (06/08/24) Laceration without foreign body of other part of head, initial encounter (06/08/24) Fracture of nasal bones, initial encounter for closed fracture (06/08/24) Inferior dislocation of right humerus, initial encounter (06/08/24) Fall on same level from slipping, tripping and stumbling without subsequent striking against object, initial encounter (06/08/24) Subjective Subjective Patient was seen and examined today, I inspected the laceration on the patient's right forehead it looks like is healing well. Patient does not have any specific complaints of shoulder pain today. Objective Data Objective Data Vital Signs: Vital Signs Temp Pulse Resp BP Pulse Ox O2 Del Method O2 Flow Rate 97.8 F 64 18 129/81 H 96 Room Air 3 06/11/24 09:03 06/11/24 09:03 06/11/24 09:03 06/11/24 09:03 06/11/24 09:03 06/11/24 09:03 06/08/24 19:56 Oxygen Flow Rate (L/min) [2] 10 Oxygen Flow Rate (L/min) 3 Oxygen Delivery Method [2] Non-Rebreather Oxygen Delivery Method [1 ( Room Air Initial Baseline)] Oxygen Delivery Method Room Air Weight: 47.185 kg Body Mass Index (BMI) 20.2 Intake & Output: Intake and Output for Last 24 Hours 06/09/24 06/10/24 06/11/24 23:59 23:59 23:59 Intake Total 600 / 600 120 / 420 500 / 500 Output Total 800 / 800 Balance -200 / -200 120 / 420 500 / 500 Lab / Micro Data 06/09/24 05:37 06/09/24 05:37 Physical Exam Narrative alert, no apparent distress, average body habitus and healthy appearing General Appearance: cooperative, well kempt and well developed Orientation / Consciousness: awake, oriented to person and oriented to place HEENT normocephalic and moist oral mucous membranes HEENT Narrative: Patient has areas of ecchymosis over her face including her right upper lip, there is a healing laceration above the patient's right eyebrow-sutures are in place PERRL, EOMs intact bilaterally and conjunctivae normal Neck supple, no JVD and thyroid normal General: trachea midline Resp normal respiratory effort, no retractions, no use of accessory muscles and clear to auscultation bilaterally Auscultation: Negative for rales, rhonchi or wheezes Cardio regular rate, regular rhythm, S1 normal heart sound, S2 normal heart sound, no murmurs, no rub and no gallops GI normal to inspection, nondistended, normoactive bowel sounds, soft to palpation, non-tender and non-distended Extremity no clubbing, cyanosis or edema Extremity Narrative: Patient's right arm is in a sling at this time Skin no rashes or lesions noted General Skin Exam: no breakdown Neuro CN's II-XII intact bilaterally, no focal motor deficits and no sensory deficits noted Neuro Narrative: Patient's cut off machine helper strength is noted to be decreased in the right hand Sensorium / Orientation: awake, alert, oriented to person and oriented to place Speech: speech normal Psych affect normal Assessment & Plan Assessment/Plan (1) Closed inferior dislocation of right shoulder: PLAN: Plan 1. 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-complicates care, management, recovery, and prognosis, PT and OT will continue to work with the patient, I talked the patient's daughter about this #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
[2024-06-11 14:30] VITALS: BP 148/88; PULSE 67; RESP 18; TEMP 37.1; O2SAT 96
[2024-06-11] MEDS: Calcitriol 0.25 MCG Capsule 0.5 MCG PO (22:31)
[2024-06-11 22:39] VITALS: BP 147/77; PULSE 82; RESP 16; TEMP 36.6; O2SAT 98
[2024-06-12 05:33] VITALS: BP 132/72; PULSE 72; RESP 16; TEMP 36.9; O2SAT 94
[2024-06-12] MEDS: Levothyroxine 50 MCG Tablet PO (05:35)
[2024-06-12] MEDS: Acetaminophen 500 MG Tablet 1000 MG PO ×2 (05:39→13:10)
[2024-06-12 09:09] VITALS: BP 132/76; PULSE 65; RESP 18; TEMP 36.4; O2SAT 95
[2024-06-12 09:11] VITALS: O2SAT 95
[2024-06-12] MEDS: Aspirin 81 MG TAB.CHEW PO (09:11)
[2024-06-12] MEDS: Heparin Injection (Vial) 5,000 UNIT/ML VIAL 5000 UNIT SC (09:12)
--- NOTE | 2024-06-12 09:25 | CASEMGMT ---
Addendum entered by Savanna Win 06/12/24 14:51: Social Work- SW received notification of authorization. SHANIQUE Keys Original Note: Social Work- SW met with pt to update on status of precert. SW received word this morning from [facility] that precert remains pending and that they have other [employer] referrals that are taking extended periods of time for a decision. [facility] reports that they are elevating precert; this was passed on to pt. Pt expressed frustration and anxiety about potentially having to pay/not have medical bills covered 100% from this hospitalization/SNF stay. LUISITO offered empathetic listening and support. SHANIQUE Keys
--- NOTE | 2024-06-12 12:28 | PCM.TXEXTCAR ---
Diet Diet Order/Speech Therapy: 06/08/24 22:25 Diet: Regular - General Food consistency:: Regular Liquid Consistency:: Regular/Thin Routine Orders/Code Status Code Status: Full Code Wound(s) Forehead: Wound Type: Laceration Bottom Lip: Wound Type: Abrasion Therapies Weight Bearing: Full weight bearing Physical Therapy: Eval and Treat Occupational Therapy: Eval and Treat Narrative: Patient is to wear right arm sling until seen by orthopedic surgery in 1 week Problem/Diagnosis (1) Closed inferior dislocation of right shoulder: Status: Acute Code(s): S43.034A - Inferior dislocation of right humerus, initial encounter Plan 1. 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-complicates care, management, recovery, and prognosis, PT and OT will continue to work with the patient, I talked the patient's daughter about this #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 [id number] care, management, recovery, and prognosis #6 laceration of the right forehead-approximated with cyndy-supportive care to the area Total clinical time spent by myself addressing the patient's medical issues, reviewing all of her data, and collaborating with patient's care team: 25 minutes Allergies/Procedures Done in Hospital Allergies alendronate sodium (From Fosamax) Allergy (Verified 06/08/24 21:16) Unknown amoxicillin Allergy (Verified 06/08/24 21:16) Unknown doxycycline Allergy (Verified 06/08/24 21:16) Unknown erythromycin base Allergy (Verified 06/08/24 21:16) Unknown tetracycline Allergy (Verified 06/08/24 21:16) Unknown Procedures: None Type of Care/Length of Stay Estimated LOS: Convalescent Care Less Than 30 days Type of Care Needed: Skilled Rehab Potential: Good Prognosis: Good Additional Orders/Day of Discharge H&P will serve as current which was dated: 06/08/24 Day of Discharge: 06/12/24 Discharge Plan Admission Admit Date/Time: 06/08/24 21:08 Primary Reason for Your Visit: Dislocated right shoulder Attending Provider: Flako Weeks Primary Care Provider: Lopez Morel Consulting Providers: Jd Castanon Instructions Additional Instructions / Restrictions: Wear right arm sling until seen by Dr. Michele Suture removal forehead sutures in 6 days Discharge Orders/Prescriptions Prescriptions: New oxycodone 5 mg Tablet 5 mg PO Q4H PRN PRN (Reason: Pain Score 4-10) 3 Days Qty: 10 0RF Continued levothyroxine [Synthroid] 50 MCG tablet 50 mcg PO MOTUWETHFRSA Patient Comments: Rx Instructions: 1/2 TAB ON SUNDAYS AND 1 TAB MONDAY THROUGH MONDAY calcitriol 0.25 MCG capsule 0.5 mcg PO DAILY levothyroxine 50 MCG tablet 25 mcg PO SON Rx Instructions: 1/2 TAB ON SUNDAYS AND 1 TAB MONDAY THROUGH MONDAY calcium citrate 200 mg (950 mg) tablet 200 mg PO DAILY cholecalciferol (vitamin D3) 10 mcg (400 unit) capsule 10 mcg PO DAILY aspirin 81 mg capsule 81 mg PO DAILY Discontinued [id number]-rmy-[id number]-FA-vit K-lut 1 EACH tablet 1 tab PO DAILY Referrals / Follow Up: Lopez Morel DO [Primary Care Provider] - Doyle Michele MD [Med Staff - Active Staff] - See Referral Note (Follow-up in Dr. Michele's office next week, call for an appointment) Disposition Disposition (needs filled in before D/C Order can be placed): [facility] Facility
--- NOTE | 2024-06-12 12:53 | DS.PCM_ITS ---
Providers Date of Admission: 06/08/24 Date of Discharge: 06/12/24 Primary Care Physician: Dr. Lopez Morel, Reason For Visit: FALL W/SHOULDER DISLOCATION AND DEBILITY Diagnosis Discharge Diagnosis (1) Closed inferior dislocation of right shoulder: Status: Acute Code(s): S43.034A - Inferior dislocation of right humerus, initial encounter Plan 1. 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-complicates care, management, recovery, and prognosis, PT and OT will continue to work with the patient, I talked the patient's daughter about this #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 [id number] care, management, recovery, and prognosis #6 laceration of the right forehead-approximated with cyndy-supportive care to the area Total clinical time spent by myself addressing the patient's medical issues, reviewing all of her data, and collaborating with patient's care team: 25 minutes Medications at Discharge Home Medications levothyroxine 50 mcg tablet (Synthroid) 50 mcg PO MOTUWETHFRSA THYROID 06/27/18 calcitriol 0.25 mcg capsule 0.5 mcg PO DAILY SUPPLEMENT 06/09/20 levothyroxine 50 mcg tablet 25 mcg PO SON THYROID 06/09/20 aspirin 81 mg capsule 81 mg PO DAILY 06/08/24 calcium citrate 200 mg (950 mg) tablet 200 mg PO DAILY 06/08/24 cholecalciferol (vitamin D3) 10 mcg (400 unit) capsule 10 mcg PO DAILY 06/08/24 oxycodone 5 mg tablet 5 mg PO Q4H PRN PRN Pain Score 4-10 3 days #10 tabs 06/12/24 Hospital Course Operations None Procedures None Summary of Care Provided Minutes Spent on Discharge: 32 Hospital Course: This 88-year-old white female was seen in the emergency room at [facility] after sustaining a fall at home when she tripped on a dog leash. Patient complained of right shoulder pain, workup in the emergency room included x-rays which revealed a dislocated right shoulder. Patient had a laceration on her forehead which was sutured, her right shoulder was reduced and she was placed in the sling. [facility] she was seen by PT and OT, it was felt she would benefit from short- term inpatient rehab services. [facility] agreed to take the patient and approval was obtained from the patient's insurance company. I contacted Dr. Michele (orthopedics) about the patient's medical care during her hospitalization, he stated that he would be glad to see the patient in follow-up in the office in a week. On 06/12/2024, patient was seen and examined: On examination she appeared in good health and spirits, she does not appear to be in any distress. Vital signs as documented. Skin warm and dry and without overt rashes. There was a healing laceration noted above the patient's right eyebrow. Neck without JVD, thyroid appears normal, trachea is midline, neck is supple. Lungs clear, normal air movement was noted. Heart exam notable for regular rhythm, normal sounds and absence of murmurs, rubs or gallops. Abdomen unremarkable and without evidence of organomegaly, masses, or abdominal aortic enlargement, bowel sounds are present in all 4 quadrants, no abdominal tenderness was noted. Extremities nonedematous, no cyanosis was noted, no clubbing was noted. 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 Psych: Patient is alert and oriented x3, she does not appear anxious or depressed, she does not appear agitated. Weight / BMI Weight Weight: 47.185 kg Body Mass Index (BMI) 20.2 ABG / Lab / Microbiology Data 06/09/24 05:37 06/09/24 05:37 Microbiology: Microbiology 06/12/24 11:45 Nasal Secretion SARS-CoV-2 Antigen (Rapid) - Final Meaningful Use Info Meaningful Use Meaningful Use Diagnoses (Choose all that apply): None applicable Ischemic Stroke Statin Dosing Therapy Reference: STATIN DOSE THERAPY REFERENCE: * Patients > 75 years receive moderate or high dose statin therapy. * Patients 75 years or YOUNGER should receive HIGH intensity statin dose unless contraindicated. You will be required to document reason for non-treatment if statin daily dose does not meet guidelines. HIGH DOSE STATIN THERAPY DAILY Atorvastatin > than or = to 40 mg Rosuvastatin > than or = to 20 mg Amlodipine + Atorvastatin > than or = to 2.5/40 mg Ezetimibe + Simvastatin 10/80 mg Simvastatin 80mg Discharge Plan Admission Admit Date/Time: 06/08/24 21:08 Primary Reason for Your Visit: Dislocated right shoulder Attending Provider: Flako Weeks Primary Care Provider: Lopez Morel Consulting Providers: Jd Castanon Instructions Additional Instructions / Restrictions: Wear right arm sling until seen by Dr. Michele Suture removal forehead sutures in 6 days Discharge Orders/Prescriptions Prescriptions: New oxycodone 5 mg Tablet 5 mg PO Q4H PRN PRN (Reason: Pain Score 4-10) 3 Days Qty: 10 0RF Continued levothyroxine [Synthroid] 50 MCG tablet 50 [facility]cg [facility] Patient Comments: Rx Instructions: 1/2 TAB ON SUNDAYS AND 1 TAB MONDAY THROUGH MONDAY calcitriol 0.25 MCG capsule 0.5 mcg PO DAILY levothyroxine 50 MCG tablet 25 mcg PO SON Rx Instructions: 1/2 TAB ON SUNDAYS AND 1 TAB MONDAY THROUGH MONDAY calcium citrate 200 mg (950 mg) tablet 200 mg PO DAILY cholecalciferol (vitamin D3) 10 mcg (400 unit) capsule 10 mcg PO DAILY aspirin 81 mg capsule 81 mg PO DAILY Discontinued mpwdtshq-fzy-vkjw-FA-vit K-lut 1 EACH tablet 1 tab PO DAILY Referrals / Follow Up: Lopez Morel DO [Primary Care Provider] - Doyle Michele MD [Med Staff - Active Staff] - See Referral Note (Follow-up in Dr. Michele's office next week, call for an appointment) Disposition Disposition (needs filled in before D/C Order can be placed): [facility] Charges/Coding Visit Charges Inpatient E&M: 26425 Disch Hosp >30min
[2024-06-12 13:32] VITALS: BP 152/81; PULSE 89; RESP 18; TEMP 36.6; O2SAT 98
--- NOTE | 2024-06-12 14:10 | PHA.DC.MR.R ---
Pharmacy [place] Med Reconciliation Pharmacy Service has performed discharge medication reconciliation for this patient. The patient's discharge medication list was reviewed for discrepancies and discrepancies were resolved. Medications at Discharge Home Medications levothyroxine 50 mcg tablet (Synthroid) 50 mcg PO MOTUWETHFRSA THYROID 06/27/18 calcitriol 0.25 mcg capsule 0.5 mcg PO DAILY SUPPLEMENT 06/09/20 levothyroxine 50 mcg tablet 25 mcg PO SON THYROID 06/09/20 aspirin 81 mg capsule 81 mg PO DAILY 06/08/24 calcium citrate 200 mg (950 mg) tablet 200 mg PO DAILY 06/08/24 cholecalciferol (vitamin D3) 10 mcg (400 unit) capsule 10 mcg PO DAILY 06/08/24 oxycodone 5 mg tablet 5 mg PO Q4H PRN PRN Pain Score 4-10 3 days #10 tabs 06/12/24
--- NOTE | 2024-06-12 14:39 | CASEMGMT ---
Social Work- SW called pt dtr, Pili, to discuss d/c transportation. Pili states that she prefers to transport pt and will be here between 2:30-3 with pt clothing to transport. SHANIQUE Keys
--- NOTE | 2024-06-12 14:51 | CASEMGMT ---
Social Work Precert has been obtained.? Physician updated and pt is ready for discharge today.? 7000 convalescent form completed in [facility] and sent along with discharge orders to [facility] Transportation arranged with daughter, Pili, who reports she will be here 2:30-3PM for pickling tank operator.? SW met with pt and they are agreeable to discharge plan as stated above.? Bedside nurse notified of discharge time. Disposition:?[facility], skilled level of care under convalescent stay. SHANIQUE Keys
--- NOTE | 2024-06-12 14:54 | NURSING ---
Report called to Shira at [facility] at [phone].
== END 2024-06-12 15:29 | disposition skilled nursing facility (03) ==
LOC: ED 21:18 → MS3 21:36
PROVIDERS: Admitting Provider Hospitalist; Emergency Provider Emergency Medicine; PCP Student in an Organized Health Care Education/Training Program; Visit Provider Internal Medicine
DX: S43.034A Inferior dislocation of right humerus, initial encounter (principal); N18.4 Chronic kidney disease, stage 4 (severe); M80.0AXA Age-related osteoporosis with current pathological fracture, other site, initial encounter for fracture; S01.81XA Laceration without foreign body of other part of head, initial encounter; R09.02 Hypoxemia; Z79.82 Long term (current) use of aspirin; R53.81 Other malaise; Z87.891 Personal history of nicotine dependence; S01.511A Laceration without foreign body of lip, initial encounter; W13.8XXA Fall from, out of or through other building or structure, initial encounter; E03.9 Hypothyroidism, unspecified; Z79.890 Hormone replacement therapy; Z79.899 Other long term (current) drug therapy; Y92.009 Unspecified place in unspecified non-institutional (private) residence as the place of occurrence of the external cause; R06.00 Dyspnea, unspecified; E20.9 Hypoparathyroidism, unspecified; G54.0 Brachial plexus disorders
CPT/HCPCS: 23650; 12013; 36415; 70450; 70486; 71250; 72125; 73030; 73060; 80048; 81001; 85025; 85027; 87426; 96372; 96374; 96375; 96376; 97116; 97161; 97166; 97530; 97535; 99221; 99285; J7030; A4216; G0378; J2405

== ENCOUNTER 2025-01-11 00:30 | Observation (INO) | payer MEDICARE, SELFPAY ==
[2020-01-27 11:19] VITALS: BMI 21.2
[2025-01-11] VITALS (12 sets, daily range): BP systolic 131–153; BP diastolic 79–95; PULSE 67–79; RESP 11–18; TEMP 36.3–36.8; O2SAT 97–100; BMI 19.8; BMI 18.2
--- NOTE | 2025-01-11 01:11 | EKG12_ITS ---
Test Reason : DYSRHYTHMIA Blood Pressure : */* mmHG Vent. Rate : 68 BPM Atrial Rate : 68 BPM P-R Int : 148 ms QRS Dur : 74 ms QT Int : 434 ms P-R-T Axes : 52 35 60 degrees QTcB Int : 461 ms Normal sinus rhythm Normal ECG Confirmed by Jeremy Bergman ([id number]), metropolitan editor ENID WHITTAKER ([id number]) on 01/13/2025 10:52:33 AM Referred By: Confirmed By: Jeremy Bergman
--- NOTE | 2025-01-11 01:11 | CT_ITS ---
PROCEDURE: STROKE BRAIN/HEAD WITHOUT CONT REASON FOR EXAM: Neuro deficit, acute, stroke suspected, lightheaded, dizziness, changes to vision TECHNIQUE: Noncontrast head CT with coronal and sagittal reformatted images COMPARISON: 06/08/2024. FINDINGS: No intracranial hemorrhage, mass effect or CT evidence of large vascular territory acute infarct. The ventricles are unchanged in size and remain midline. Chronic and involutional changes with atrophy and periventricular white matter likely chronic small-vessel ischemic change again noted. Visualized paranasal sinuses, mastoids and orbits appear within limits. CT/STROKE Brain/Head without Cont IMPRESSION: No intracranial hemorrhage, mass effect or CT evidence of large vascular territ ory acute infarct. Chronic and involutional changes again noted. Results verbally communicated by phone by myself to Dr. Shen at 1:50 a.m. 11/2024 One or more dose reduction techniques were used (e.g., Automated exposure contr ol, adjustment of the mA and/or kV according to patient size, use of iterative reconstruction technique). Reading Location: [id number]
--- NOTE | 2025-01-11 01:12 | EX.ED.DYSGE1 ---
HPI History of Present Illness Chief Complaint: Dizziness Informant: patient, family (daughter via telephone) and EMS Narrative Narrative: 89-year-old female states that she was feeling lightheaded and a little off tonight, she went to lay down in bed and as soon as she laid down, she suddenly felt like everything was spinning. She immediately sat back up, and the spinning stopped and has not recurred since. She states when she was feeling dizzy her vision was a little off, it took some time to come back to normal she had no vision loss, but now her vision is back to normal. She called her daughter out of concern and called EMS and now is feeling a little nauseated but otherwise back to normal. She denies any other associated symptoms such as focal neurologic symptoms, tinnitus, earache, hearing disturbance, headache, fall or injury recently, recent illness. No vomiting. Her right shoulder has a chronic musculoskeletal condition that limits her ability to move it, and she has some stiffness in her neck, but no other acute symptoms. She states that in the past she had some type of disequilibrium that felt different than the spinning she complained of tonight, she was diagnosed with some type of peripheral vertigo, referred to ENT who was not able to reproduce it, she followed up with her doctor and had imaging that ended up showing a stroke was causing it. She is currently concerned that she could be having a stroke. 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 Dental injury Contusion of lip, initial encounter Closed fracture nasal bone Forehead laceration Closed inferior dislocation of right shoulder Former tobacco use Anxiety Hypothyroidism Spinal stenosis Hypoparathyroidism Osteoporosis Home Medications ?Medication ?Instructions ?Recorded ?Last Taken ?Type levothyroxine 50 mcg tablet 50 mcg PO MOTUWETHFRSA THYROID 06/27/18 06/09/20 History (Synthroid) calcitriol 0.25 mcg capsule 0.5 mcg PO DAILY SUPPLEMENT 06/09/20 06/08/20 History levothyroxine 50 mcg tablet 25 mcg PO SON THYROID 06/09/20 06/07/20 History aspirin 81 mg capsule 81 mg PO DAILY 06/08/24 Unknown History calcium citrate 200 mg PO DAILY 06/08/24 Unknown History cholecalciferol (vitamin D3) 10 10 mcg PO DAILY 06/08/24 Unknown History mcg (400 unit) capsule Allergy/AdvReac Type Severity Reaction Status Date / Time alendronate sodium (From Allergy Unknown Verified 01/11/25 00:32 Fosamax) amoxicillin Allergy Unknown Verified 01/11/25 00:32 doxycycline Allergy Unknown Verified 01/11/25 00:32 erythromycin base Allergy Unknown Verified 01/11/25 00:32 tetracycline Allergy Unknown Verified 01/11/25 00:32 Family History Mother Breast cancer Sister Breast cancer Sister Breast cancer Daughter Breast cancer Surgical History History of toe surgery History of tonsillectomy and adenoidectomy Status post Mohs surgery Social History household members: none current occupational exposures/hazards: No Smoking Status: Former smoker details: No recent alcohol use substance use type: does not use ROS ROS ED Constitutional Constitutional ED: Denies chills or fever(s) Eyes Eyes: Reports change in vision bilateral (Resolved); Denies diplopia ENT ENT ED: Denies rhinorrhea or sore throat Cardiovascular Cardiovascular: Reports lightheadedness; Denies chest pain or palpitations Respiratory/Chest Respiratory/Chest: Denies cough or dyspnea Gastrointestinal Gastrointestinal: Denies abdominal pain, diarrhea, nausea or vomiting Genitourinary Genitourinary ED: Denies dysuria or hematuria Musculoskeletal Musculoskeletal: Denies back pain or neck pain Integumentary Denies abscess or rash Neurologic Neurologic: Reports as per HPI and dizziness; Denies abnormal speech, headache(s), paresthesias or weakness EXAM Physical Exam Const Vital Signs: 01/11/25 00:33 01/11/25 00:45 01/11/25 01:15 Temperature 97.4 F L Temperature Source Oral Pulse Rate 70 67 Respiratory Rate 16 11 L Respiratory Effort Normal Non-Labored Respiratory Pattern Normal Blood Pressure 152/79 H 153/86 H Blood Pressure Mean 103 108 Pulse Ox 99 99 Oxygen Delivery Method Room Air Room Air 01/11/25 01:19 01/11/25 01:30 01/11/25 02:00 Temperature Temperature Source Pulse Rate 70 67 Respiratory Rate 18 16 Respiratory Effort Respiratory Pattern Blood Pressure 143/86 H 151/88 H Blood Pressure Mean 105 109 Pulse Ox 99 100 Oxygen Delivery Method Room Air Room Air Room Air 01/11/25 02:11 01/11/25 03:00 Temperature Temperature Source Pulse Rate 67 69 Respiratory Rate 16 16 Respiratory Effort Respiratory Pattern Blood Pressure 151/88 H 131/80 H Blood Pressure Mean 109 97 Pulse Ox 100 98 Oxygen Delivery Method Room Air Room Air Positive well nourished and well developed General Appearance ED: well developed and NAD HEENT Reports moist mucous membranes HEENT Narrative: TMs normal bilaterally. EACs normal bilaterally. normocephalic and atraumatic Eyes PERRL and EOMs intact bilaterally Eyes Narrative: No nystagmus. No horizontal, vertical, rotatory nystagmus. 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 No dysmetria arms or legs. Negative Osiris-Hallpike. NIHSS 0. Sensorium / Orientation: awake and alert Motor Exam: strength 5/5 throughout Psych Mood & Affect: anxious Skin no rashes or lesions noted and no wounds MDM MDM MDM Narrative Medical decision making narrative: Although I am obtaining emergent CT and CTA vascular imaging, I did not call stroke alert since the patient is asymptomatic with an NIHSS of 0. My suspicion is that since this was triggered by a position change that it is inner ear related. Furthermore it is different symptoms than what she had when she was diagnosed with having had a stroke. However she is concerned that this could have been a mini stroke/TIA. I advised her that in order to discern this she would need to be admitted to the hospital after her CT and CTA which will presumably be unremarkable, and have further evaluation including MRI. I discussed with her at length in addition with her daughter, and she decided to undergo the testing to be admitted to the hospital. I did obtain the CT and CTA reviewed both of them on my interpretation they are negative for any acute, radiology was in agreement with whom I spoke about them. EKG shows sinus rhythm. Labs noted and are unremarkable. Blood pressure elevated 160s upon arrival, during her observation and workup, she has developed no recurrent episodes of vertigo and her blood pressure now is improved to 131/80. Discussed with hospitalist. Of note given that she is asymptomatic and CTA shows nothing acute, patient is not a thrombolytic candidate. Lab Data Attestation: I reviewed the patient's lab results. Labs: Laboratory Results - last 24 hr 01/11/25 00:40 WBC 5.5 RBC 4.16 L Hgb 12.3 Hct 36.2 L MCV 87.0 MCH 29.6 MCHC 34.0 RDW Std Deviation 41.2 RDW Coeff of Rosalina 13.1 Plt Count 204 MPV 8.8 Immature Gran % (Auto) 0.500 Neut % (Auto) 57.1 Lymph % (Auto) 25.0 Fallon % (Auto) 13.4 H Eos % (Auto) 3.3 Baso % (Auto) 0.7 Absolute Neuts (auto) 3.2 Absolute Lymphs (auto) 1.38 Nucleated RBC % 0 Sodium 138 Potassium 3.4 Chloride Direct 103 Carbon Dioxide 20.0 L Anion Gap 15 BUN 25 H Creatinine 0.82 Estim Creat Clear Calc 34.72 Est GFR (MDRD) Non-Af 69 BUN/Creatinine Ratio 30.7 H Glucose 118 H Calcium 9.6 Radiography Diagnostic Testing: Clinical Impression(s) from Imaging Studies Brain CT 01/11/25 01:11 IMPRESSION: No intracranial hemorrhage, mass effect or CT evidence of large vascular territory acute infarct. Chronic and involutional changes again noted. Results verbally communicated by phone by myself to Dr. Shen at 1:50 a.m. 01/11/2025 One or more dose reduction techniques were used (e.g., Automated exposure control, adjustment of the mA and/or kV according to patient size, use of iterative reconstruction technique). Reading Location: [facility] Chest X-Ray 01/11/25 01:35 IMPRESSION: No evidence of acute disease. Reading Location: [facility] Head/Neck CTA 01/11/25 02:30 IMPRESSION: No flow significant stenosis, occlusion, dissection or aneurysm identified. Results were communicated verbally by phone by myself to Dr. Shen at 3:38 a.m. 01/11/2025 One or more dose reduction techniques were used (e.g., Automated exposure control, adjustment of the mA and/or kV according to patient size, use of iterative reconstruction technique). Reading Location: [facility] 1 view chest x-ray negative anything acute on my interpretation Rhythm Strip Rhythm Strip: Sinus Rhythm Rate: 68 Ectopy: None EKG Initial EKG: Attestation: I personally reviewed and interpreted this EKG as follows: Interpretation: Sinus Rhythm and No Acute Injury Pattern Comments: Nml axis & intervals; nml EKG Management Discussion w/another healthcare provider: Hospitalist and Radiologist Discharge Plan Dx/Rx/DC Orders Clinical Impression: Vertigo Disposition Disposition: Acute Care Hospital [facility]
--- NOTE | 2025-01-11 01:35 | RAD_ITS ---
PROCEDURE: CHEST 1 VIEW REASON FOR EXAM: Neuro deficit acute, stroke suspected TECHNIQUE: Frontal view of the chest. COMPARISON: 07/04/2021 FINDINGS: The lungs are clear. Cardiac and mediastinal contours are within limits. Pulmonary vascularity within limits. Curvilinear apical pleural calcification again noted, unchanged. RAD/Chest 1 View IMPRESSION: No evidence of acute disease. Reading Location: [id number]
[2025-01-11 01:54] LABS: Absolute Lymphocyte Count 1.38 X10^3/uL (0.83-4.51); Absolute Neutrophil Count 3.2 X10^3/uL (2.0-7.7); Anion Gap 15 (5-15); BUN 25 mg/dL (4-19); BUN/Creat Ratio 30.7 RATIO (10-20); Basophil# 0.04 X10^3/uL; Basophil% 0.7 % (0-1); Calcium 9.6 mg/dL (7.6-11.0); Chloride 103 mmol/L (96-108); Creatinine, Serum 0.82 mg/dL (0.70-1.20); EST Glomerular Filtration Rate 69 (>60); Eosinophil# 0.18 X10^3/uL; Eosinophils% 3.3 % (0-5); Estimated Creatinine Clearance 34.72 ml/min; Glucose 118 mg/dL (70-99); Hematocrit 36.2 % (37-47); Hemoglobin 12.3 g/dL (12.0-15.0); Lymphocyte # 1.38 X10^3/ul (0.83-4.51); Mean Corpuscular Hgb 29.6 pg (27.0-32.0); Mean Platelet Vol. 8.8 fl (6.2-12.0); Monocyte# 0.74 X10^3/uL; Monocyte% 13.4 % (0-10); NRBC Flagged by Analyzer 0 % (0-5); Neutrophil # 3.15 X10^3/uL (2.7-7.7); Neutrophil % 57.1 % (47-70); Platelet Count 204 K/mm3 (150-450); Potassium 3.4 mmol/L (3.3-5.1); RBC Distribution Width CV 13.1 % (11.6-14.6); RBC Distribution Width SD 41.2 fl (35.1-43.9); Red Blood Count 4.16 M/mm3 (4.2-5.4); Sodium Level 138 mmol/L (133-145); White Blood Count 5.5 K/mm3 (4.4-11.0)
--- NOTE | 2025-01-11 02:30 | CT_ITS ---
PROCEDURE: STROKE CTA HEAD AND NECK W/CON REASON FOR EXAM: Acute vertigo TECHNIQUE: CTA imaging of the head and neck from the aortic arch to the skull vertex with intravenous contrast. 3D reconstructions. Coronal and sagittal reformatted images and MIP images CONTRAST: 100 cc [id number] COMPARISON: Preceding noncontrast head CT FINDINGS: The left vertebral artery arises directly off the aortic arch, anatomic variant. Bolus beam hardening artifact obscures portion of the proximal left common carotid artery and short segment of the left vertebral artery RIGHT Carotid: No flow significant stenosis, occlusion, aneurysm or dissection. Undulating internal carotid artery Right CCA: Unremarkable. Right ICA: Unremarkable. Right ECA: Unremarkable. LEFT Carotid: No flow significant stenosis, occlusion, aneurysm or dissection. Undulating internal carotid artery Left CCA: Unremarkable. Left ICA: Unremarkable. Very mild calcific plaque Left ECA: Unremarkable. Vertebrals: Codominant. Both vertebrals form the basilar. RIGHT Vertebral: Unremarkable. LEFT Vertebral: As above otherwise unremarkable. Tlhouz-[id number]-Xcymoh appears intact without vessel cut off, flow significant stenosis or aneurysm No intracranial aneurysms or large vascular malformations are identified. Anterior cerebral arteries: Unremarkable. Middle cerebral arteries: Unremarkable. Basilar artery: Unremarkable. Posterior cerebral arteries: Unremarkable. Other major branches of the posterior circulation: Unremarkable. Major venous structures: Unremarkable. Other findings: No lymphadenopathy. Lung apices are clear. Bones are unremarkable. CT/STROKE CTA Head AND Neck W/Con IMPRESSION: No flow significant stenosis, occlusion, dissection or aneurysm identified. Results were communicated verbally by phone by myself to Dr. Shen at 3:38 a.m . 01/11/2025 One or more dose reduction techniques were used (e.g., Automated exposure contr ol, adjustment of the mA and/or kV according to patient size, use of iterative reconstruction technique). Reading Location: [id number]
--- NOTE | 2025-01-11 02:54 | ED.RN ---
0253: PT. REQUESTED FOR OSTOMY BAG TO BE CHANGED. THIS NURSE ASSESSED OSTOMY SITE. PT. INFORMED THE DEPARTMENT DOES NOT STOCK THE PARTICULAR APPLIANCE OR OSTOMY BAG. PT. OFFERED TO COMPARE FLANGE W/ OUR STOCKED OSTOMY APPLIANCES TO ASSESS COMPATIBILITY, BUT DECLINED AT THIS TIME. PT STATED I HAVE A LOT OF MONEY IN MY OWN SUPPLIES AT HOME. I DON'T WANT TO MESS WITH THAT 0254: PT. TAKEN TO IMAGING
--- NOTE | 2025-01-11 03:51 | PCM.HP.STD ---
HPI - General General Date of Admission: 01/11/25 Date of Service: 01/11/25 Chief Complaint: Vertigo. HPI Narrative VARGAS SUTHERLAND, is a 89 F with a past medical history of hypothyroidism; on levothyroxine, history of hyperparathyroidism, former tobacco abuse, history of TIA; complicated by peripheral vertigo on BASA, generalized anxiety, history of brachial plexus neuropathy of the RUE after fall with closed inferior dislocation of the Right shoulder, history of uterine abscess with extension into colon; s/p hysterectomy with colostomy, history of spinal stenosis, history of closed nasal fracture, osteoporosis; on calcitriol and vitamin D3 plus OA who presents to [facility] a complaining of vertigo. Ms. Sutherland reports her symptoms began on the evening of January 10, 2025 when she was feeling lightheaded and when she went to lay down she suddenly felt like everything was spinning. She did immediately sit back up in the send pending stopped without recurrence since that time which she states is similar to her previous TIA with vertigo. She states she had a transient blurring of her vision but no total loss of vision in her vision is now back to normal. She then called her daughter a lot of concern called EMS even though her symptoms resolved. She admits to stiffness in her neck related to her chronic musculoskeletal condition that limits her ability to move it in addition to nausea patient seen and examined independently. She denies vomiting, associated focal neurologic symptoms, tinnitus, earache, hearing disturbance, headache, recent fall or injury or other recent illness. Though she was encouraged by the ER that she probably did not have a recurrent TIA or CVA with unremarkable head CT, normal laboratory tests except for evidence of mild Dehydration and stable normal range vital signs she is still currently concerned that she could be having a stroke and is insisting she be admitted for workup in spite of a low-index of clinical suspicion. She was then admitted to the PCU for ongoing care for status is expected to be less than 2 midnights. [facility] Medical History (Updated 01/11/25 @ 04:[address] Avinash Kaur, DO) Brachial plexus neuropathy of right upper extremity Debility Fall from slip, trip, or stumble Dental injury Contusion of lip, initial encounter Closed fracture nasal bone Forehead laceration Closed inferior dislocation of right shoulder Former tobacco use Anxiety Hypothyroidism Spinal stenosis Hypoparathyroidism Osteoporosis Home Medications ?Medication ?Instructions ?Recorded ?Last Taken ?Type levothyroxine 50 mcg tablet 50 mcg PO MOTUWETHFRSA THYROID 06/27/18 06/09/20 History (Synthroid) calcitriol 0.25 mcg capsule 0.5 mcg PO DAILY SUPPLEMENT 06/09/20 06/08/20 History levothyroxine 50 mcg tablet 25 mcg PO SON THYROID 06/09/20 06/07/20 History aspirin 81 mg capsule 81 mg PO DAILY 06/08/24 Unknown History calcium citrate 200 mg PO DAILY 06/08/24 Unknown History cholecalciferol (vitamin D3) 10 10 mcg PO DAILY 06/08/24 Unknown History mcg (400 unit) capsule Allergy/AdvReac Type Severity Reaction Status Date / Time alendronate sodium (From Allergy Unknown Verified 01/11/25 00:32 Fosamax) amoxicillin Allergy Unknown Verified 01/11/25 00:32 doxycycline Allergy Unknown Verified 01/11/25 00:32 erythromycin base Allergy Unknown Verified 01/11/25 00:32 tetracycline Allergy Unknown Verified 01/11/25 00:32 Family History Mother Breast cancer Sister Breast cancer Sister Breast cancer Daughter Breast cancer Surgical History History of toe surgery History of tonsillectomy and adenoidectomy Status post Mohs surgery Social History household members: none current occupational exposures/hazards: No Smoking Status: Former smoker details: No recent alcohol use substance use type: does not use ROS ROS Narrative Review of Systems: Constitutional: Patient denies fever or chills. Eyes: Patient admits to transient blurry vision that is since resolved. ENT: Patient denies runny nose, sore throat or ear pain. Resp: Patient denies shortness of breath or cough. CV: Patient admits to lightheadedness but denies chest pain, palpitations or heart racing. GI: Patient admits to nausea but she denies abdominal pain, vomiting, diarrhea or constipation. : Patient denies dysuria or hematuria MSK: Patient admits to neck discomfort likely related to her previously diagnosed right upper extremity brachial plexus neuropathy. Skin: Patient denies rash, abscess, wounds or jaundice. Psych: Patient admits to anxiety about potentially having a stroke but she denies SI or HI. Neuro: Patient admits to transient vertigo that has since resolved. She denies associated headache, paresthesias or focal neurologic deficits. Allergy: Patient denies lip swelling, tongue swelling or urticaria. Hematology: Patient denies easy bleeding or easy bruisability. Endocrinology: Patient denies polyuria, polydipsia or polyphagia. 14 point ROS otherwise negative except for positives noted above in HPI. Vital Signs Vital Signs Vital Signs: 01/11/25 00:33 01/11/25 00:45 01/11/25 01:15 Temperature 97.4 F L Temperature Source Oral Pulse Rate 70 67 Respiratory Rate 16 11 L Respiratory Effort Normal Non-Labored Respiratory Pattern Normal Blood Pressure 152/79 H 153/86 H Blood Pressure Mean 103 108 Pulse Ox 99 99 Oxygen Delivery Method Room Air Room Air 01/11/25 01:19 01/11/25 01:30 01/11/25 02:00 Temperature Temperature Source Pulse Rate 70 67 Respiratory Rate 18 16 Respiratory Effort Respiratory Pattern Blood Pressure 143/86 H 151/88 H Blood Pressure Mean 105 109 Pulse Ox 99 100 Oxygen Delivery Method Room Air Room Air Room Air 01/11/25 02:11 01/11/25 03:00 Temperature Temperature Source Pulse Rate 67 69 Respiratory Rate 16 16 Respiratory Effort Respiratory Pattern Blood Pressure 151/88 H 131/80 H Blood Pressure Mean 109 97 Pulse Ox 100 98 Oxygen Delivery Method Room Air Room Air Weight Weight: 101 lb 6.602 oz Body Mass Index (BMI) 19.8 Physical Exam Const alert, oriented x3, no apparent distress, average body habitus and healthy appearing General Appearance: cooperative HEENT normocephalic, head/scalp atraumatic, hearing grossly normal bilaterally and moist oral mucous membranes Eyes PERRL, EOMs intact bilaterally and conjunctivae normal Neck no lymphadenopathy, supple and no JVD Resp normal respiratory effort, no retractions, no use of accessory muscles and clear to auscultation bilaterally Cardio regular rate and regular rhythm GI normal to inspection, nondistended, normoactive bowel sounds, soft to palpation, non-tender and non-distended Extremity normal to inspection, full ROM and no clubbing, cyanosis or edema Skin Skin Narrative: Patient is no evidence of rash, abscess, wounds or jaundice. Neuro oriented x3, CN's II-XII intact bilaterally, moves all extremities and no focal motor deficits Sensorium / Orientation: awake, alert, oriented to person, oriented to place and oriented to time Speech: speech normal Psych Mood & Affect: anxious Results Medical Records Data Attestation: I reviewed the patient's medical records Lab / Micro Data Attestation: I reviewed the patient's lab results. 01/11/25 00:40 01/11/25 00:40 Labs: Laboratory Results - last 24 hr 01/11/25 00:40: WBC 5.5, RBC 4.16 L, Hgb 12.3, Hct 36.2 L, MCV 87.0, MCH 29.6, MCHC 34.0, RDW Std Deviation 41.2, RDW Coeff of Rosalina 13.1, Plt Count 204, MPV 8.8, Immature Gran % (Auto) 0.500, Neut % (Auto) 57.1, Lymph % (Auto) 25.0, [place] % (Auto) 13.4 H, Eos % (Auto) 3.3, Baso % (Auto) 0.7, Absolute Neuts (auto) 3.2, Absolute Lymphs (auto) 1.38, Nucleated RBC % 0, Sodium 138, Potassium 3.4, Chloride Direct 103, Carbon Dioxide 20.0 L, Anion Gap 15, BUN 25 H, Creatinine 0.82, Estim Creat Clear Calc 34.72, Est GFR (MDRD) Non-Af 69, BUN/Creatinine Ratio 30.7 H, Glucose 118 H, Calcium 9.6 Rhythm Strip Rhythm Strip: Sinus Rhythm Rate: 68 Ectopy: None Imaging Radiology Impression Brain CT 01/11/25 01:11 IMPRESSION: No intracranial hemorrhage, mass effect or CT evidence of large vascular territory acute infarct. Chronic and involutional changes again noted. Results verbally communicated by phone by myself to Dr. Shen at 1:50 a.m. 01/11/2025 One or more dose reduction techniques were used (e.g., Automated exposure control, adjustment of the mA and/or kV according to patient size, use of iterative reconstruction technique). Reading Location: [id number] Chest X-Ray 01/11/25 01:35 IMPRESSION: No evidence of acute disease. Reading Location: [facility] Head/Neck CTA 01/11/25 02:30 IMPRESSION: No flow significant stenosis, occlusion, dissection or aneurysm identified. Results were communicated verbally by phone by myself to Dr. Shen at 3:38 a.m. 01/11/2025 One or more dose reduction techniques were used (e.g., Automated exposure control, adjustment of the mA and/or kV according to patient size, use of iterative reconstruction technique). Reading Location: [facility] Assessment & Plan Assessment/Plan (1) Vertigo: (2) History of TIA (transient ischemic attack): (3) Nausea: (4) Dehydration: (5) Brachial plexus neuropathy of right upper extremity: PLAN: Plan 1. Vertigo; with Nausea causing patient concerned for possible recurrence of TIA/CVA - Admit to PCU under observation status. Continue baby aspirin daily and add statin. Check lipid profile and B12. Check MRI brain without contrast to confirm absence of CVA. Check echocardiogram to evaluate LVEF to complete evaluation. 2. History of TIA; complicated by peripheral vertigo on BASA triggering her previously known Generalized Anxiety complicating #1 - Noted. Give meclizine prn for vertigo if symptoms return. 3. History of Brachial Plexus Neuropathy of the RUE after fall with closed inferior dislocation of the Right shoulder; with associated neck stiffness compounding #1 & #2 - Give acetaminophen prn for pain or fever. 4. Dehydration; evidenced by elevated BUN/creatinine ratio of 30.7 present on admission likely triggering #1 - Gently volume resuscitate and then recheck level to ensure improvement. 5. Hypothyroidism; on levothyroxine - Resume levothyroxine as previous and check TSH. 6. History of hyperparathyroidism - Normal calcium of 9.6 mg/dL present on admission. 7. Former tobacco abuse - Noted. 8. History of spinal stenosis - Noted. 9. History of uterine abscess with extension into colon; s/p hysterectomy with colostomy - Noted. 10. History of closed nasal fracture - Noted. 11. Osteoporosis; on calcitriol and vitamin D3 - Maintain current regimen. 12. OA - Give acetaminophen as needed as per pain scale noted above in #3. Total time: Approximately (but not less than) 70 minutes. Charges/Coding Visit Charges OBSV E&M: 82005 Observ/hosp same date L2
--- NOTE | 2025-01-11 04:31 | ECHOD_ITS ---
Reason For Study Reason For Study: TIA/STROKE Procedure This was a 2D Doppler, Color Flow transthoracic echocardiogram. Exam performed in department. Left Ventricle Normal LV size. The estimated ejection fraction is 75 %. Unable to assess diastolic dysfunction. No regional wall motion abnormalities noted. Right Ventricle Normal RV size. Normal systolic function. Atria The left and right atria are normal. No doppler evidence for ASD. Mitral Valve There is moderate to severe mitral annular calcification. There is no mitral valve stenosis. No mitral valve insufficiency. Tricuspid Valve There is no tricuspid stenosis. Trivial tricuspid valve insufficiency. Pulmonary artery systolic pressure is 25 mmHg. Aortic Valve Trisinus/trileaflet aortic valve. There is no aortic stenosis. No aortic valve insufficiency. Pulmonic Valve There is no pulmonic valvular stenosis. No pulmonic valve insufficiency. Great Vessels Normal sized aortic root. Pericardium/Pleural No pericardial effusion. MMode/2D Measurements & Calculations LVIDd: 3.7 cm IVSd: 1.00 cm LVOT diam: 1.7 cm LVIDs: 1.9 cm LVPWd: 1.1 cm LVOT area: 2.3 cm2 FS: 48.1 % LVAd ap4: 15.7 cm2 SV(MOD-sp4): 26.1 ml SV(sp4-el): 28.1 ml LVLd ap4: 6.1 cm SI(MOD-sp4): 19.4 ml/m2 EDV(MOD-sp4): 34.0 ml EDV(sp4-el): 34.2 ml LVAs ap4: 5.9 cm2 LVLs ap4: 4.8 cm ESV(MOD-sp4): 7.9 ml ESV(sp4-el): 6.1 ml EF(MOD-sp4): 76.8 % EF(sp4-el): 82.2 % LA dimension(2D): 1.9 cm RA A4 area: 9.6 cm2 Time Measurements MV dec time: 0.21 sec Doppler Measurements & Calculations MV E max gerardo: 67.7 cm/sec Lat Peak E' Gerardo: 5.6 cm/sec Med Peak E' Gerardo: 5.5 cm/sec MV A max gerardo: 89.1 cm/sec E/E' lat: 12.1 E/E' med: 12.3 MV E/A: 0.76 MV V2 max: 90.8 cm/sec Ao V2 max: 96.3 cm/sec MV max P.3 mmHg MV dec slope: 324.3 cm/sec2 Ao max P.7 mmHg MV V2 mean: 47.5 cm/sec Ao V2 mean: 71.4 cm/sec MV mean P.2 mmHg Ao mean P.2 mmHg MV V2 VTI: 28.3 cm Ao V2 VTI: 21.2 cm AV (velocity ratio): 1.1 MVA(VTI): 2.0 cm2 DURGA(I,D): 2.6 cm2 DURGA(V,D): 2.4 cm2 LV V1 max: 101.8 cm/sec SV(LVOT): 55.7 ml TR max gerardo: 221.2 cm/sec LV V1 max P.1 mmHg TR max P.6 mmHg LV V1 mean P.2 mmHg LV V1 mean: 69.0 cm/sec LV V1 VTI: 24.3 cm ECHO/Echo Complete Interpretation Summary The estimated ejection fraction is 75 %. Ordering Physician: Avinash Kaur Referring Physician: SHEFALI LEVY Performed By: Darlin Mullen RCS
--- NOTE | 2025-01-11 04:31 | MRI_ITS ---
EXAM: BRAIN WITHOUT CONTRAST CLINICAL HISTORY: Transient vertigo with history of TIA with vertigo COMPARISON: None. TECHNIQUE: PROCEDURE: Multiplanar sequences of the brain were obtained on a 1.5 Valorie MRI system, including T1, T2, FLAIR, DWI, and ADC. No intravenous contrast was administered. IV CONTRAST: FINDINGS: MRI BRAIN: No intraparenchymal hemorrhage is evident. No focus of restricted diffusion is identified to suggest acute or early subacute ischemia. There is no extra-axial fluid collection, mass effect, or shift of midline structures. The basal cisterns are visualized. The ventricles and cortical sulci are in proportion and consistent with the patient's age. There is no signal abnormality in the ambrosio matter. There are scattered foci of T2/FLAIR hyperintensities in the supratentorial deep white matter that are nonspecific but most likely related to chronic small vessels ischemic changes and appears out of proportion for patient's age. The midline structures demonstrate normal contours. The craniocervical junction is unremarkable. The flow voids of the large intracranial vessels are normal. The calvarium is unremarkable. The paranasal sinuses and mastoid air cells are clear. MRI/Brain without Contrast IMPRESSION: 1. No MR evidence of acute ischemia. 2. Age-appropriate volume loss and remote small vessel ischemic changes.. Reading Location: [facility]
[2025-01-11] MEDS: 0.9% Normal Saline (1000mL) 1,000 ML 100 ML IV (04:56)
[2025-01-11 05:01] LABS: Alcohol, Blood (Medical)-Serum < 10.1 mg/dL (<=10.0)
[2025-01-11 05:31] LABS: Cholesterol 221 mg/dL (<=200); High Density Lipoprotein 91 mg/dL; Low Density Lipoprotein Calc. 104 mg/dL; Triglycerides 131 mg/dL; Very Low Density Lipoprotein 26 mg/dL (5-40); Vitamin B12 505 pg/mL (180-914); cholesterol:hdl ratio screen 2.44
[2025-01-11] MEDS: Levothyroxine 50 MCG Tablet PO (05:57)
--- NOTE | 2025-01-11 08:09 | PCM.PN.HOSP ---
Reason for Visit Reason for Visit: Diagnoses Dehydration (01/11/25) Brachial plexus disorders (01/11/25) Nausea (01/11/25) Dizziness and giddiness (01/11/25) Personal history of transient ischemic attack (TIA), and cerebral infarction without residual deficits (01/11/25) Subjective Subjective Subjectively feeling better, discussed the outcomes of the MRI, patient would like to be discharged and follow-up as an outpatient Objective Data Objective Data Vital Signs: Vital Signs Temp Pulse Resp BP Pulse Ox O2 Del Method 97.5 F L 67 16 148/82 H 100 Room Air 01/11/25 05:20 01/11/25 05:20 01/11/25 05:20 01/11/25 05:20 01/11/25 05:20 01/11/25 05:30 Oxygen Delivery Method Room Air Weight: 93 lb 9 oz Body Mass Index (BMI) 18.2 Intake & Output: Intake and Output for Last 24 Hours 01/09/25 01/10/25 01/11/25 23:59 23:59 23:59 Intake Total 100 / 100 Balance 100 / 100 Lab / Micro Data 01/11/25 00:40 01/11/25 00:40 Labs: Laboratory Results - last 24 hr 01/11/25 00:40: WBC 5.5, RBC 4.16 L, Hgb 12.3, Hct 36.2 L, MCV 87.0, MCH 29.6, MCHC 34.0, RDW Std Deviation 41.2, RDW Coeff of Rosalina 13.1, Plt Count 204, MPV 8.8, Immature Gran % (Auto) 0.500, Neut % (Auto) 57.1, Lymph % (Auto) 25.0, [place] % (Auto) 13.4 H, Eos % (Auto) 3.3, Baso % (Auto) 0.7, Absolute Neuts (auto) 3.2, Absolute Lymphs (auto) 1.38, Nucleated RBC % 0, Sodium 138, Potassium 3.4, Chloride Direct 103, Carbon Dioxide 20.0 L, Anion Gap 15, BUN 25 H, Creatinine 0.82, Estim Creat Clear Calc 34.72, Est GFR (MDRD) Non-Af 69, BUN/Creatinine Ratio 30.7 H, Glucose 118 H, Hemoglobin A1c 5.0 L, Calcium 9.6, Triglycerides 131, Cholesterol 221 H, VLDL Cholesterol 26, HDL Cholesterol 91, Cholesterol/HDL Ratio 2.44, Vitamin B12 505, TSH 3.480, Ethyl Alcohol < 10.1 Radiography Diagnostic Testing: Radiology Impression Brain CT 01/11/25 01:11 IMPRESSION: No intracranial hemorrhage, mass effect or CT evidence of large vascular territory acute infarct. Chronic and involutional changes again noted. Results verbally communicated by phone by myself to Dr. Shen at 1:50 a.m. 01/11/2025 One or more dose reduction techniques were used (e.g., Automated exposure control, adjustment of the mA and/or kV according to patient size, use of iterative reconstruction technique). Reading Location: [facility] Chest X-Ray 01/11/25 01:35 IMPRESSION: No evidence of acute disease. Reading Location: [facility] Head/Neck CTA 01/11/25 02:30 IMPRESSION: No flow significant stenosis, occlusion, dissection or aneurysm identified. Results were communicated verbally by phone by myself to Dr. Shen at 3:38 a.m. 01/11/2025 One or more dose reduction techniques were used (e.g., Automated exposure control, adjustment of the mA and/or kV according to patient size, use of iterative reconstruction technique). 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 Her brain CT was negative for any acute bleed, x-ray was normal, head and neck CTA showed no significant stenosis occlusion dissection or aneurysm. MRI brain and echocardiogram were normal. The assessment and plan are present in discharge summary for today's date.
[2025-01-11] MEDS: 0.9% Saline Lock 10 ML Syringe IV (09:34)
[2025-01-11] MEDS: Aspirin 81 MG TAB.CHEW PO (10:48)
--- NOTE | 2025-01-11 12:19 | CON.PCM.NE_ITS ---
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 Given positional component and short lived symptoms, symptoms seem most likely related to a diagnosis of BPPV (likely posterior canal involvement). Would not expect TIA to be positional and last only seconds. There is no evidence for cerebellar dysfunction on neurologic examination this afternoon. MRI brain non-acute. 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 Symptom onset around 11pm last night. Charlotte noted feeling unwell and off while getting ready for bed. She is unable to describe sensation any further. She laid down flat on the bed and as soon as she was down she experienced a sensation of room spinning, described as merry-go around in movement. Room was spinning and she was not. She immediately sat up in bed, and as soon as she got up, the sensation resolved. She was able to walk around her house and call EMS and they took her to the hospital. The sensation has not returned since its resolution. She denies ever experiencing this sensation before. [facility] Medical History (Updated 01/11/25 @ 04:[address] Avinash Kaur, DO) Brachial plexus neuropathy of right upper extremity Debility Fall from slip, trip, or stumble Dental injury Contusion of lip, initial encounter Closed fracture nasal bone Forehead laceration Closed inferior dislocation of right shoulder Former tobacco use Anxiety Hypothyroidism Spinal stenosis Hypoparathyroidism Osteoporosis Home Medications ?Medication ?Instructions ?Recorded ?Last Taken ?Type levothyroxine 50 mcg tablet 50 mcg PO MOTUWETHFRSA THY ROID 06/27/18 06/09/20 History (Synthroid) calcitriol 0.25 mcg capsule 0.5 mcg PO DAILY SUPPLEMEN T 06/09/20 06/08/20 History levothyroxine 50 mcg tablet 25 mcg PO SON THYROID 06/0906/07/20 History aspirin 81 mg capsule 81 mg PO DAILY 06/08/24 Unkn own History calcium citrate 200 mg PO DAILY 06/08/24 Unk nown History cholecalciferol (vitamin D3) 10 10 mcg PO DAILY Unknown History mcg (400 unit) capsule Allergy/AdvReac Type Severity Reaction Status Date / Time alendronate sodium (From Allergy Unknown Verified 01/11/25 00:32 Fosamax) amoxicillin Allergy Unknown Verified 01/11/25 00:32 doxycycline Allergy Unknown Verified 01/11/25 00:32 erythromycin base Allergy Unknown Verified 01/11/25 00:32 tetracycline Allergy Unknown Verified 01/11/25 00:32 Family History Mother Breast cancer Sister Breast cancer Sister Breast cancer Daughter Breast cancer Surgical History History of toe surgery History of tonsillectomy and adenoidectomy Status post Mohs surgery Social History household members: none current occupational exposures/hazards: No Smoking Status: Former smoker details: No recent alcohol use substance use type: does not use Vital Signs Vital Signs Vital Signs: 01/11/25 00:33 01/11/25 00:45 01/11/25 01:15 Temperature 97.4 F L Temperature Source Oral Pulse Rate 70 67 Pulse Strength Respiratory Rate 16 11 L Respiratory Effort Normal Non-Labored Respiratory Depth Respiratory Pattern Normal Blood Pressure 152/79 H 153/86 H Blood Pressure Mean 103 108 Blood Pressure Source Blood Pressure Position Blood Pressure Location Pulse Ox 99 99 Oxygen Delivery Method Room Air Room Air 01/11/25 01:19 01/11/25 01:30 01/11/25 02:00 Temperature Temperature Source Pulse Rate 70 67 Pulse Strength Respiratory Rate 18 16 Respiratory Effort Respiratory Depth Respiratory Pattern Blood Pressure 143/86 H 151/88 H Blood Pressure Mean 105 109 Blood Pressure Source Blood Pressure Position Blood Pressure Location Pulse Ox 99 100 Oxygen Delivery Method Room Air Room Air Room Air 01/11/25 02:11 01/11/25 03:00 01/11/25 04:00 Temperature Temperature Source Pulse Rate 67 69 76 Pulse Strength Respiratory Rate 16 16 16 Respiratory Effort Respiratory Depth Respiratory Pattern Blood Pressure 151/88 H 131/80 H 141/83 H Blood Pressure Mean 109 97 102 Blood Pressure Source Blood Pressure Position Blood Pressure Location Pulse Ox 100 98 99 Oxygen Delivery Method Room Air Room Air Room Air 01/11/25 04:00 01/11/25 05:20 01/11/25 05:30 Temperature 98.2 F 97.5 F L Temperature Source Oral Pulse Rate 76 67 Pulse Strength Respiratory Rate 16 16 Respiratory Effort Normal Non-Labored Respiratory Depth Normal Respiratory Pattern Normal Blood Pressure 141/83 H 148/82 H Blood Pressure Mean 102 104 Blood Pressure Source Monitor Blood Pressure Position Semi-Fowlers Blood Pressure Location Left Arm Pulse Ox 99 100 Oxygen Delivery Method Room Air Room Air 01/11/25 08:47 01/11/25 09:20 01/11/25 10:47 Temperature 97.8 F Temperature Source Oral Pulse Rate 79 Pulse Strength Normal (2+) Respiratory Rate 16 Respiratory Effort Respiratory Depth Respiratory Pattern Blood Pressure 145/95 H Blood Pressure Mean 111 Blood Pressure Source Monitor Blood Pressure Position Semi-Fowlers Blood Pressure Location Left Arm Pulse Ox 97 98 Oxygen Delivery Method Room Air Room Air Weight Weight: 42.439 kg Body Mass Index (BMI) 18.2 NIHSS NIHSS Nursing Documentation NIHSS Nursing Documentation: NIH Stroke Scale Start: 01/11/25 00:43 Freq: Status: Discharge Protocol: Activity Type Activity Date Activity User E-sign Co-sign Detail Recorded Client Recorded Date Recorded By Document 01/11/25 00:43 [facility] [id number] 01/11/25 00:44 [facility] 01/11/25 00:43 NIH Stroke Scale [NIHSS] A score of 0 is normal or asymptomatic . Total possible score is 42. Inpatient: RN or Physician to activate a stroke alert for onset of new stroke symptoms or with NIHSS increase >/= 3 points. Following change in neurological status, NIHSS will be performed per physician order or more frequently PRN. -1a. Level of Consciousness Alert; keenly responsive -1b. LOC Questions Answers BOTH questions correctly. -1c. LOC Commands Performs both tasks correctly . -2. Best Gaze Normal -3. Visual No visual loss -4. Facial Palsy Normal symmetrical movements -5a. Left Arm No drift; arm holds 90 (or 45 ) degrees for full 10 seconds -5b. Right Arm UN=Amputation or joint fusion , explain: -'UN' explanation pt refused d/t prior shoulder injury -6a. Left Leg No drift; leg holds 30-degree position for full 5 seconds -6b. Right Leg No drift; leg holds 30-degree position for full 5 seconds -7. Limb Ataxia UN=Amputation or joint fusion , explain -'UN' explanation pt refused to use right arm d /t prior shoulder injury ; all other limbs WNL -8. Sensory Normal; no sensory loss -9. Best Language No aphasia; normal -10. Dysarthria Normal -11. Extinction and Inattention No abnormality -Total 0 Query Text:A score of 0 is normal or asymptomatic. Total possible score is 42 . ED: Notify Physician for NIHSS increase by > / = 3 points. Inpatient: RN or Physician to activate a stroke alert for NIHSS increase of > / = 3 points. NIHSS: Ischemic Stroke/TIA Start: 01/11/25 04:46 Text: For PCU Patients: NIH and Neuro Check every 4 Status: Active hours, PRN and with change in RN caregiver. Freq: [id number] Protocol: Activity Type Activity Date Activity User E-sign Co-sign Detail Recorded Client Recorded Date Recorded By Document 01/11/25 09:20 [id number] 01/11/25 09:33 01/11/25 09:20 -1a. Level of Consciousness Alert; keenly responsive -1b. LOC Questions Answers BOTH questions correctly. -1c. LOC Commands Performs both tasks correctly . -2. Best Gaze Normal -3. Visual No visual loss -4. Facial Palsy Normal symmetrical movements -5a. Left Arm No drift; arm holds 90 (or 45 ) degrees for full 10 seconds -5b. Right Arm No drift; arm holds 90 (or 45 ) degrees for full 10 seconds -6a. Left Leg No drift; leg holds 30-degree position for full 5 seconds -6b. Right Leg No drift; leg holds 30-degree position for full 5 seconds -7. Limb Ataxia Absent -8. Sensory Normal; no sensory loss -9. Best Language No aphasia; normal -10. Dysarthria Normal -11. Extinction and Inattention No abnormality -Total 0 Query Text:A score of 0 is normal or asymptomatic. Total possible score is 42 . ED: Notify Physician for NIHSS increase by > / = 3 points. Inpatient: RN or Physician to activate a stroke alert for NIHSS increase of > / = 3 points. Coma Scale [Assess] -Eye Opening Spontaneous -Motor Obeys Commands -Verbal Oriented [Total] -Coma Scale Total 15 Physical Exam Narrative Mental Status: The patient was alert and oriented to person, place, month, and year Language: speech is fluent and without dysarthria. Naming and repletion are intact Cranial Nerves: Pupils are equal and reactive to light. EOMI, no nystagmus is appreciated, visual lombardi full, face is symmetric at rest and with activation, hearing is intact to conversational tone, tongue protrudes midline. Facial sensation is intact to light touch, and equal bilaterally. Motor: ? Right arm with chronic weakness EE/EF antigravity, not able to lift the right arm above her head (chronic shoulder dislocation). Left upper extremity antigravity, without drift Sensation- Intact to light touch bilaterally Coordination: No dysmetria on [id number] on the left (not able to complete on the left due to shoulder dislocation), [id number]. No truncal ataxia Gait: Observation of casual gait shows ability to get out of bed without assistance, normal stride width and length. No truncal ataxia Lab / Micro Data 01/11/25 00:40 01/11/25 00:40 Labs: Laboratory Results - last 24 hr 01/11/25 00:40: WBC 5.5, RBC 4.16 L, Hgb 12.3, Hct 36.2 L, MCV 87.0, MCH 29.6, MCHC 34.0, RDW Std Deviation 41.2, RDW Coeff of Rosalina 13.1, Plt Count 204, MPV 8.8, Immature Gran % (Auto) 0.500, Neut % (Auto) 57.1, Lymph % (Auto) 25.0, Milam % (Auto) 13.4 H, Eos % (Auto) 3.3, Baso % (Auto) 0.7, Absolute Neuts (auto) 3.2, Absolute Lymphs (auto) 1.38, Nucleated RBC % 0, Sodium 138, Potassium 3.4, Chloride Direct 103, Carbon Dioxide 20.0 L, Anion Gap 15, BUN 25 H, Creatinine 0.82, Estim Creat Clear Calc 34.72, Est GFR (MDRD) Non-Af 69, BUN/Creatinine Ratio 30.7 H, Glucose 118 H, Hemoglobin A1c 5.0 L, Calcium 9.6, Triglycerides 131, Cholesterol 221 H, VLDL Cholesterol 26, HDL Cholesterol 91, Cholesterol/HDL Ratio 2.44, Vitamin B12 505, TSH 3.480, Ethyl Alcohol < 10.1 Rhythm Strip Rhythm Strip: Sinus Rhythm Rate: 68 Ectopy: None Imaging Radiology Impression Brain CT 01/11/25 01:11 IMPRESSION: No intracranial hemorrhage, mass effect or CT evidence of large vascular territory acute infarct. Chronic and involutional changes again noted. Results verbally communicated by phone by myself to Dr. Shen at 1:50 a.m. 01/11/2025 One or more dose reduction techniques were used (e.g., Automated exposure control, adjustment of the mA and/or kV according to patient size, use of iterative reconstruction technique). Reading Location: [facility] Chest X-Ray 01/11/25 01:35 IMPRESSION: No evidence of acute disease. Reading Location: [facility] Head/Neck CTA 01/11/25 02:30 IMPRESSION: No flow significant stenosis, occlusion, dissection or aneurysm identified. Results were communicated verbally by phone by myself to Dr. Shen at 3:38 a.m. 01/11/2025 One or more dose reduction techniques were used (e.g., Automated exposure control, adjustment of the mA and/or kV according to patient size, use of iterative reconstruction technique). Reading Location: [facility] Brain MRI 01/11/25 04:31 IMPRESSION: 1. No MR evidence of acute ischemia. 2. Age-appropriate volume loss and remote small vessel ischemic changes.. [facility] Active Medications Active Medications Active Medications: Current Medications Generic Name Dose Route Start Last Admin Trade Name Freq PRN Reason Stop Dose Admin Acetaminophen 650 mg 01/11/25 04:46 Acetaminophen 325 Mg Tablet PO Q4H PRN PRN Pain 1-10 Or Fever>99.6 Aspirin 81 mg 01/11/25 08:00 01/11/25 10:48 Aspirin 81 Mg Tab.Chew PO 81 mg BREAKFAST [place] Administration Atorvastatin Calcium 40 mg 01/11/25 04:46 01/11/25 05:58 Atorvastatin Calcium 40 Mg Tablet PO Not Given QHS [place] Calcitriol 0.5 mcg 01/11/25 10:00 01/11/25 10:50 Calcitriol 0.25 Mcg Capsule PO Not Given DAILY [place] Calcium Carbonate 500 mg 01/11/25 08:00 01/11/25 10:45 Calcium Carbonate 500 Mg Tablet PO Not Given DAILYCM [facility] Enoxaparin Sodium 40 mg 01/11/25 06:00 01/11/25 05:58 Enoxaparin 40 Mg/0.4 Ml Syringe SC Not Given DAILY@0600 [facility] Sodium Chloride 1,000 mls @ 100 mls/hr 01/11/25 04:32 01/11/25 10:43 IV 01/12/25 00:31 100 mls/hr .Q10H [place] Infusion Protocol Sodium Chloride 100 mls @ 15 mls/hr 01/11/25 05:07 IV .Q6H40M PRN Saline Flush Sodium Chloride 100 mls @ 15 mls/hr 01/11/25 05:07 IV .Q6H40M PRN Additional IVPB Infusion Labetalol HCl 20 mg 01/11/25 01:10 Labetalol 20mg/4ml Syringe IV 01/12/25 01:11 X1 PRN BLOOD PRESSURE Levothyroxine Sodium 50 mcg 01/11/25 06:00 01/11/25 05:57 Levothyroxine 50 Mcg Tablet PO 50 mcg MoTuWeThFrSa@0600 [place] Administration Levothyroxine Sodium 25 mcg 01/12/25 06:00 Levothyroxine 25 Mcg Tablet PO Son@0600 [facility] Meclizine HCl 12.5 mg 01/11/25 04:46 Meclizine 12.5 Mg Tablet PO TID PRN PRN DIZZINESS Ondansetron HCl 4 mg 01/11/25 04:46 Ondansetron 4 Mg/2 Ml Vial IV Q6H PRN PRN NAUSEA/VOMITING Sodium Chloride 10 - 40 ml 01/11/25 05:07 01/11/25 09:34 0.9% Saline Lock 10 Ml Syringe IV 10 ml UD PRN Administration SALINE FLUSH
--- NOTE | 2025-01-11 12:35 | CASEMGMT ---
Social Work Per physician, pt is negative for stroke therefore PHQ9 depression screen not completed. SHANIQUE Bedoya
--- NOTE | 2025-01-11 15:19 | PCM.DC.SUM ---
Providers Date of Admission: 01/11/25 Date of Discharge: 01/11/25 Primary Care Physician: Dr. Lopez Levy, DO Consultations 01/11/25 04:46 Consult: Tele-Neurology Routine Consulting Provider: [facility] Reason for Consult: Acute Ischemic Stroke/TIA EMERGENT Consult: No MD Notified: Yes Date Notified: 01/11/25 Time Notified: 07:53 Method of Notification: Answering Service Method of Consult:: Telemedicine Nursing Unit Staff Notify [facility] of Tele-Neurology Consult: Yes Reason For Visit: VERTIGO WITH NAUSEA AND DEHYDRATION CAUSING Diagnosis Discharge Diagnosis (1) Vertigo: Status: Acute Code(s): R42 - Dizziness and giddiness Plan: Likely related to diagnosis of BPPV due to posterior canal involvement, TIA very unlikely and there was no evidence of cerebellar dysfunction on neurologic exam. MRI brain did not show any findings of ischemia. (2) History of TIA (transient ischemic attack): Status: Acute Code(s): Z86.73 - Personal history of transient ischemic attack (TIA), and cerebral infarction without residual deficits Plan: Patient episode was not TIA, continue prior medications. With aspirin 81 mg daily (3) Nausea: Status: Acute Code(s): R11.0 - Nausea Plan: No active concerns (4) Dehydration: Status: Acute Code(s): E86.0 - Dehydration Plan: Increase p.o. 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 Her brain CT was negative for any acute bleed, x-ray was normal, head and neck CTA showed no significant stenosis occlusion dissection or aneurysm. She is planned for MRI brain and echocardiogram today. # BPPV # Acute onset vertigo -Echocardiogram and MRI brain for complete evaluation performed, no concerns regarding TIA. -Appreciate neurology input, follow-up with vestibular physical therapy in outpatient setting for likely BPPV #TIA -Continue aspirin 81 mg daily # Dehydration #History of hypercalcemia: Corrected calcium 10.5 at this admission -Increase p.o. hydration -Her serum calcium was 9.6, not leading to her bleeding episode, but needs to be closely monitored as an outpatient as she previously had an episode of hypercalcemia, hypercalcemia can lead to diuresis. #Hypothyroidism: Continue levothyroxine #Former tobacco abuse #Prior colectomy with colostomy: Follow-up outpatient clinic #Osteoporosis: On calcitriol and vitamin D, reduce calcium intake as per PCP Medications at Discharge Home Medications levothyroxine 50 mcg tablet (Synthroid) 50 mcg PO MOTUWETHFRSA THYROID 06/27/18 calcitriol 0.25 mcg capsule 0.5 mcg PO DAILY SUPPLEMENT 06/09/20 levothyroxine 50 mcg tablet 25 mcg PO SON THYROID 06/09/20 aspirin 81 mg capsule 81 mg PO DAILY 06/08/24 atorvastatin 40 mg tablet 40 mg PO QHS #60 tabs 01/11/25 meclizine 12.5 mg tablet 12.5 mg PO TID PRN PRN Dizziness #30 tabs 01/11/25 Hospital Course Operations None Procedures None Summary of Care Provided Minutes Spent on Discharge: 30 Physical Exam Const alert, oriented x3 and no apparent distress HEENT normocephalic Eyes PERRL Neck no lymphadenopathy Resp normal respiratory effort Cardio regular rate and regular rhythm GI normal to inspection, nondistended, normoactive bowel sounds GI Narrative: Colostomy in place Extremity normal to inspection Skin no rashes or lesions noted Neuro oriented x3, CN's II-XII intact bilaterally, moves all extremities and no focal motor deficits Psych affect normal Weight / BMI Weight Weight: 93 lb 9 oz Body Mass Index (BMI) 18.2 ABG / Lab / Microbiology Data 01/11/25 00:40 01/11/25 00:40 Laboratory: Laboratory Results - last 24 hr 01/11/25 00:40: WBC 5.5, RBC 4.16 L, Hgb 12.3, Hct 36.2 L, MCV 87.0, MCH 29.6, MCHC 34.0, RDW Std Deviation 41.2, RDW Coeff of Rosalina 13.1, Plt Count 204, MPV 8.8, Immature Gran % (Auto) 0.500, Neut % (Auto) 57.1, Lymph % (Auto) 25.0, Willacy % (Auto) 13.4 H, Eos % (Auto) 3.3, Baso % (Auto) 0.7, Absolute Neuts (auto) 3.2, Absolute Lymphs (auto) 1.38, Nucleated RBC % 0, Sodium 138, Potassium 3.4, Chloride Direct 103, Carbon Dioxide 20.0 L, Anion Gap 15, BUN 25 H, Creatinine 0.82, Estim Creat Clear Calc 34.72, Est GFR (MDRD) Non-Af 69, BUN/Creatinine Ratio 30.7 H, Glucose 118 H, Hemoglobin A1c 5.0 L, Calcium 9.6, Triglycerides 131, Cholesterol 221 H, VLDL Cholesterol 26, HDL Cholesterol 91, Cholesterol/HDL Ratio 2.44, Vitamin B12 505, TSH 3.480, Ethyl Alcohol < 10.1 Radiography Diagnostic Testing: Radiology Impression Brain CT 01/11/25 01:11 IMPRESSION: No intracranial hemorrhage, mass effect or CT evidence of large vascular territory acute infarct. Chronic and involutional changes again noted. Results verbally communicated by phone by myself to Dr. Shen at 1:50 a.m. 01/11/2025 One or more dose reduction techniques were used (e.g., Automated exposure control, adjustment of the mA and/or kV according to patient size, use of iterative reconstruction technique). Reading Location: [facility] Chest X-Ray 01/11/25 01:35 IMPRESSION: No evidence of acute disease. Reading Location: [facility] Head/Neck CTA 01/11/25 02:30 IMPRESSION: No flow significant stenosis, occlusion, dissection or aneurysm identified. Results were communicated verbally by phone by myself to Dr. Shen at 3:38 a.m. 01/11/2025 One or more dose reduction techniques were used (e.g., Automated exposure control, adjustment of the mA and/or kV according to patient size, use of iterative reconstruction technique). Reading Location: [facility] Brain MRI 01/11/25 04:31 IMPRESSION: 1. No MR evidence of acute ischemia. 2. Age-appropriate volume loss and remote small vessel ischemic changes.. Reading Location: [facility] Echocardiogram 01/11/25 04:31 Interpretation Summary The estimated ejection fraction is 75 %. Ordering Physician: Avinash Kaur Referring Physician: LOPEZ LEVY Performed By: Darlin Mullen RCS D/C Instructions Discharge Diet: No restrictions Discharge Activity: Return to Normal Activity May resume sexual activity in: No Restrictions Weight Bearing Status: Weight bearing as tolerated DC O2, CPAP, BIPAP Needs Home O2 Discharge instructions: No Additional Instructions: If symptoms of vertigo recur, follow-up with vestibular physical therapy Meaningful Use Info Meaningful Use Meaningful Use Diagnoses (Choose all that apply): None applicable Ischemic Stroke Statin Dosing Therapy Reference: STATIN DOSE THERAPY REFERENCE: * Patients > 75 years receive moderate or high dose statin therapy. * Patients 75 years or YOUNGER should receive HIGH intensity statin dose unless contraindicated. You will be required to document reason for non-treatment if statin daily dose does not meet guidelines. HIGH DOSE STATIN THERAPY DAILY Atorvastatin > than or = to 40 mg Rosuvastatin > than or = to 20 mg Amlodipine + Atorvastatin > than or = to 2.5/40 mg Ezetimibe + Simvastatin 10/80 mg Simvastatin 80mg Statins at discharge?: Yes Discharge Plan Admission Admit Date/Time: 01/11/25 04:23 Primary Reason for Your Visit: vertigo Attending Provider: Narciso Altamirano Primary Care Provider: Lopez Levy Consulting Providers: Schuyler Oneill; Grady Machuca; Isabella Alva; Kyra Marroquin; Ruthann Maharaj; Evin Montejo; Minnie Mclaughlin; Gilberto Omer; Hesham Guzman; Kyrie Lan; Марина Anthony; Tanvir Mujica; Stefany Delgado; Gladis Pierson; Miguel Mitchell; Manas Mosher; Jade Johnson; Julian Pradhan; Sunita Singh; Watson Sawant; Avinash Kaur Discharge Orders/Prescriptions Prescriptions: New meclizine 12.5 mg tablet 12.5 mg PO TID PRN PRN (Reason: Dizziness) Qty: 30 1RF atorvastatin 40 mg Tablet 40 mg PO QHS Qty: 60 0RF Continued aspirin 81 mg capsule 81 mg PO DAILY Discontinued calcium citrate 200 mg (950 mg) tablet 200 mg PO DAILY cholecalciferol (vitamin D3) 10 mcg (400 unit) capsule 10 mcg PO DAILY No Action levothyroxine [Synthroid] 50 MCG tablet 50 mcg PO MOTUWETHFRSA Patient Comments: Rx Instructions: 1/2 TAB ON SUNDAYS AND 1 TAB MONDAY THROUGH MONDAY calcitriol 0.25 MCG capsule 0.5 mcg PO DAILY levothyroxine 50 MCG tablet 25 mcg PO SON Rx Instructions: 1/2 TAB ON SUNDAYS AND 1 TAB MONDAY THROUGH MONDAY Referrals / Follow Up: Lopez Levy DO [Primary Care Provider] - Disposition Disposition (needs filled in before D/C Order can be placed): Home, Self Care Charges/Coding Visit Charges Inpatient E&M: 72311 Disch Hosp
--- NOTE | 2025-01-11 15:45 | CASEMGMT ---
EVETTE MENDEZ NOTE: EVETTE CM to room. Pt sitting on edge of bed. Pt lives alone in split-level home, independent. She uses no DME to ambulate. She has an ostomy, gets supplies via [employer], states has sufficient amt of supplies. Pt goes to [facility] for OP therapy, and wishes to resume this @ discharge. She declines having any discharge needs/concerns. Joshua ROBBINS RN, CM
[2025-01-13 16:04] LABS: Bedside Glucose 118 mg/dL (74-106)
== END 2025-01-11 15:31 | disposition home or self-care (01) ==
LOC: ED 02:32 → PCU 05:23
PROVIDERS: Admitting Provider Internal Medicine; Emergency Provider Emergency Medicine; PCP Student in an Organized Health Care Education/Training Program; Visit Provider Internal Medicine
DX: H81.10 Benign paroxysmal vertigo, unspecified ear (principal); E86.0 Dehydration; Z87.891 Personal history of nicotine dependence; R11.0 Nausea; Z79.82 Long term (current) use of aspirin; G62.9 Polyneuropathy, unspecified; Z79.890 Hormone replacement therapy; M43.6 Torticollis; M81.0 Age-related osteoporosis without current pathological fracture; Z86.73 Personal history of transient ischemic attack (TIA), and cerebral infarction without residual deficits; E03.9 Hypothyroidism, unspecified; Z79.899 Other long term (current) drug therapy
CPT/HCPCS: 70450; 70496; 70498; 70551; 71045; 80048; 80061; 82077; 82607; 82962; 83036; 84443; 85025; 92610; 93005; 93306; 96360; 96361; 97161; 97166; 99221; 99285; Q9957; Q9967; A4216; G0378

== ENCOUNTER 2025-03-10 10:30 | Outpatient (RCR) | payer MEDICARE, SELFPAY ==
[2020-01-27 11:19] VITALS: BMI 21.2
--- NOTE | 2024-12-06 08:00 | HP.OTEVAL_ITS ---
Patient's Visit Information Visit Information Visit Information: VARGAS SUTHERLAND is a 89 year old F, referred to Occupational Therapy by HALEY TIDWELL, with a diagnosis of Traumatic brachial plexopathy. Date of Evaluation: 12/05/24 Occupational Therapist: DENISSE Zapata/Karen, CHT Subjective Subjective: This 89 year old female was seen for OT eval with dx of traumatic brachial plexopathy. pt states in May she suffered fall and dislocated her right shoulder- pt is left-handed with writing but dominate right hand with all other tasks- operative intervention not option for pt due to age and other commodities. pt states she did not get much therapy due to other issues. pt at this time would like to know what she can do to improve her right arm ROM- pt will have PT eval on 12/09/24 to address the shoulder. Pain right UE: Current Pain Intensity: 3 Pain Intensity Range: 3 and 5 ROM Shoulder: right limited ( Physical therapy to evaluate) Elbow: right -35/140 left 0/150 Forearm: right supination 40 left 75 Wrist: right 20/30 left 65/55 ROM Comments: pt is unable to form right composite fist pt is unable to perform right digit opposition right thumb contracted PA Strength Refrigeration Repair Supervisor: right unable left 25# Lateral Pinch: right unabe left 12# Tripod Pinch: right unable left 10# Quick DASH-Disab of Arm,Shoulder& Hand Quick DASH Score: 63.6350 Goals Goal:: pt will demo a increase in right home management supervisor strength to 15# or greater to improve pts use of right UE with ADLs by d.c pt will demo an increase in right lateral pinch to 4# to increase pt functional use of right hand with ADls by d.c Goal:: pt will demo full right elbow ROM by d/c to increase pts use of right UE by d/c . pt will demo right forearm supination to 60* or greater to improve pts func tional ROM by d.c pt will demo a increase in right wrist ROM 45/55 or greater to increase use of right UE with ADLs by d.c pt will demo full composite fist to use right hand to assist with dressing and bathing by d.c Goal:: pt will report no pain greater than 2/10 with use of right UE by D/c Goal:: pt will demo the ability to warehouse and receiving supervisor and hold a variety of objects to increase pts use of right hand with ADLs. Rehabilitation General Assessment: EMG- 10/14/2024: reveals a right lower trunk brachial plexopathy that appears chronic with active degeneration. pt demo with a decline in pts functional use of right UE for all ADLs and IADLs. Pt demo need for skilled OT services 2x week for 8 weeks to improve pts functional use of right hand- Today therapist ed. pt on AAROM for forearm- wrist and digits. pt demo understanding and agrees to POC. Pt will have Physical Therapy evaluation who will address pts shoulder. Rehabilitation Potential: Good Anticipated Interventions Anticipated Interventions: A/AAROM/PROM, Strengthening, Triggerpoint Release, Sensory Retraining, Modalities, Orthoses, Joint Protection/Energy Conservation, Ergonomic Education, Fine Motor Coord/Ye, Education re assistive Equipment, Education re Diagnosis, Caregiver Training and Home Program Visit Plan Frequency: 2-3x /Week Duration: 2 Months General Plan: OTR/L, CHT will see pt to work on right elbow, forearm, wrist and digit ROM - once functional grasp is achieved with work on strengthening TEXT: Thank you for the opportunity to evaluate your patient. For Medicare and Medicare HMO plans, please review the plan of care and approve it. It will need to be FAXED BACK to us at [phone] for Medicare purposes. Please let me know if there are questions or concerns regarding this plan of care. Physician Signature: Date :
--- NOTE | 2024-12-09 12:14 | HP.PTEVAL ---
Patient's Visit Information Visit Information Visit Information: VARGAS SUTHERLAND is a 89 year old F referred to Physical Therapy by HALEY TIDWELL with a diagnosis of Traumatic Brachial Plexopathy. 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 May use heat or ice as well Subjective Subjective: She fell in May and dislocated her R shoulder. She waited a long time because she had to have a hysterectomy and ostomy bag and then went into sepsis and so she was in [facility] for awhile. She is L handed for writing but does everything else with her R hand. She has restricted finger and wrist motion on the R and will be seeing OT for that and we will see her for her shoulder. She has no pain sitting here in the clinic. She has pain when she lifts her shoulder and tends to use her L arm to raise her R shoulder up in the air. She tends to carry her arm at side at 90 degree angle and uses mid trap to hold the arm up and causes mid trap pain. She can lay on her R shoulder at night and doing better at doing that but tends to sleep on her back or L shoulder and occ on the R. Pain R shoulder pain: Pain Intensity (Out of 10): 0 Pain Intensity Range: 3 Objective Objective: L handed: Posture: sits with rounded shoulders and arm flexed at 90 degrees at elbow, protracted R shoulder Shoulder AROM R shoulder flex 10 and L 125 R shoulder ABD 11 and L 132 R shoulder IR PSIS and L T6 R shoulder ER 52 and L 77 Shoulder MMT R shoulder flex 0 and L 6.8 R shoulder ER 2.1 and L 7.8 R shoulder IR 5 and L 7.5 R shoulder PROM: tight end feel, slight pain at end range Balance/Special Test Scores Quick DASH Score: 75.0000 Goals Goal 1:: I HEP Goal Time Frame: 6-8 Weeks Goal 2:: Increase R shoulder AROM (at the time of the eval: Shoulder AROM R shoulder flex 10 and L 125 R shoulder ABD 11 and L 132 R shoulder IR PSIS and L T6 R shoulder ER 52 and L 77) Goal Time Frame: 8-12 Weeks Goal 3:: Increase R shoulder strength (Shoulder MMT R shoulder flex 0 and L 6.8 R shoulder ER 2.1 and L 7.8 R shoulder IR 5 and L 7.5). Goal Time Frame: 8-12 Weeks Goal 4:: Be able to use shoulder more throughout the day with ADL's Goal Time Frame: 8-12 Weeks Goal 5:: Sit with good posture Goal Time Frame: 8-12 Weeks Rehabilitation Potential Rehabilitation Potential: Good Anticipated Interventions Patient/Client Instruction: Educate patient on: Condition and Plan of Care For the Purpose of:: To decrease pain, To increase ROM, To improve nutrient delivery to tissue, To improve muscle performance and motor function, To improve ability to perform ADL's, To increase tolerance to activity/condition/position, To improve ability of physical actions for home/community/work/leisure, To improve health of tissue, To decrease soft tissue restriction and To increase flexibility/ROM Therapeutic Exercise to Include: Strength training, Endurance training, Postural training, Flexibilty training, Neuromotor development, Passive ROM, Active ROM and Scapular Strength/Stabilization For the Purpose of:: To decrease pain, To increase ROM, To improve nutrient delivery to tissue, To improve muscle performance and motor function, To improve ability to perform ADL's, To increase tolerance to activity/condition/position, To improve performance and independence with ADL's, To decrease level of supervision to perform tasks, To improve health of tissue, To decrease soft tissue restriction and To increase flexibility/ROM Manual Therapy Techniques to Include: Passive ROM and Soft tissue mobilization For the Purpose of:: To decrease pain, To increase ROM, To improve muscle performance and motor function, To improve ability to perform ADL's, To increase tolerance to activity/condition/position, To decrease level of supervision to perform tasks, To improve gait and locomotor functions, To improve health of tissue, To decrease soft tissue restriction, To increase flexibility/ROM and To improve endurance Cryotherapy (ice pack, ice massage): Yes Thermo therapy (hot pack): Yes For the Purpose of:: To decrease pain, To decrease swelling/inflammation, To increase ROM and To improve nutrient delivery to tissue Text: Thank you for the opportunity to evaluate your patient. For Medicare and Medicare HMO plans, please review the plan of care and approve it. It will need to be FAXED BACK to us at [phone] for Medicare purposes. For Medicare only, by signing this I certify the plan of care. Please let me know if there are questions or concerns regarding this plan of care. Physician Signature: Date:
--- NOTE | 2025-01-27 13:37 | HP.OTREVAL ---
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 Please see the progress note below for an update on the occupational therapy plan of care! Subjective Subjective: pt arrives to session states she is doing ok did not remember this was her last apt. does not remember her PT Soha who did her initial evaluation- states she can not use her right hand for daily tasks. still can not drive- still can not open food items- or use right hand for bathing/dressing. Objective Objective/Function: PIP IF 30 following 40* MF 40 following 45 RF 45 following 48 LF 40 following 50 pt demo no increase in ROM this session- pt continues to demo need for skilled OT services 2x wee for 4 weeks to increase functional grasp of right dominate hand for ADls and IADLs. 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 Anticipated Interventions Anticipated Interventions Anticipated Interventions: A/AAROM/PROM, Strengthening, Triggerpoint Release, Sensory Retraining, Modalities, Orthoses, Joint Protection/Energy Conservation, Ergonomic Education, Fine Motor Coord/Ye, Education re assistive Equipment, Education re Diagnosis, Caregiver Training and Home Program Re-Evaluation Ending Re-evaluation ending: Please do not hesitate to contact me at [phone] by phone or if you have questions or concerns regarding this new plan of care! Sincerely, Irene Perea, OTR/L, CHT
--- NOTE | 2025-01-27 13:57 | HP.PTREVAL ---
Re-Evaluation Intro: HALEY TIDWELL, It has been my pleasure to treat VARGAS SUTHERLAND over the last 14 visits for Traumatic Brachial Plexopathy. Please see the progress note below for an update on the physical therapy plan of care! Subjective Subjective: Pt reports that her shoulder hurts because of what she was doing in PT. Her pain is more of an achy pain. She does not have the achy pain constatnly at home either. Her shoulder is better because she can get dressed a lot easier than when she first came here. In fact this morning she was able to put her robe on with her L first and then her R shoulder. She is able to take clothes off over the head better now. Pt reports that she used to always need a heating pad to warm her shoulder but now she hardly turns it on. Objective Objective/Function: Shoulder AROM R shoulder flex 45 and L 125 R shoulder ABD 40and L 132 R shoulder IR L2 and L T6 R shoulder ER 62 and L 77 Shoulder MMT R shoulder flex 0 and L 6.8 R shoulder ER 4.1and L 7.8 R shoulder IR 8.4 and L 7.4). 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 May use heat or ice as well Balance/Gait/Functional tests Balance/Special Test Scores Quick DASH Score: 43.1800 Goals Goals Goal 1:: I HEP Goal Time Frame: 6-8 Weeks Goal Progress: Progressing Goal 2:: Increase R shoulder AROM (at the time of the eval: Shoulder AROM R shoulder flex 10 and L 125 R shoulder ABD 11 and L 132 R shoulder IR PSIS and L T6 R shoulder ER 52 and L 77) Goal Time Frame: 8-12 Weeks Goal 3:: Increase R shoulder strength (Shoulder MMT R shoulder flex 0 and L 6.8 R shoulder ER 2.1 and L 7.8 R shoulder IR 5 and L 7.5). Goal Time Frame: 8-12 Weeks Goal 4:: Be able to use shoulder more throughout the day with ADL's Goal Time Frame: 8-12 Weeks Goal Progress: Progressing Goal 5:: Sit with good posture Goal Time Frame: 8-12 Weeks Goal Progress: Progressing Anticipated Interventions Anticipated Interventions Patient/Client Instruction: Educate patient on: Condition and Plan of Care For the Purpose of:: To decrease pain, To increase ROM, To improve nutrient delivery to tissue, To improve muscle performance and motor function, To improve ability to perform ADL's, To increase tolerance to activity/condition/position, To improve ability of physical actions for home/community/work/leisure, To improve health of tissue, To decrease soft tissue restriction and To increase flexibility/ROM Therapeutic Exercise to Include: Strength training, Endurance training, Postural training, Flexibilty training, Neuromotor development, Passive ROM, Active ROM and Scapular Strength/Stabilization For the Purpose of:: To decrease pain, To increase ROM, To improve nutrient delivery to tissue, To improve muscle performance and motor function, To improve ability to perform ADL's, To increase tolerance to activity/condition/position, To improve performance and independence with ADL's, To decrease level of supervision to perform tasks, To improve health of tissue, To decrease soft tissue restriction and To increase flexibility/ROM Manual Therapy Techniques to Include: Passive ROM and Soft tissue mobilization For the Purpose of:: To decrease pain, To increase ROM, To improve muscle performance and motor function, To improve ability to perform ADL's, To increase tolerance to activity/condition/position, To decrease level of supervision to perform tasks, To improve gait and locomotor functions, To improve health of tissue, To decrease soft tissue restriction, To increase flexibility/ROM and To improve endurance Cryotherapy (ice pack, ice massage): Yes Thermo therapy (hot pack): Yes For the Purpose of:: To decrease pain, To decrease swelling/inflammation, To increase ROM and To improve nutrient delivery to tissue Re-Evaluation Ending Re-evaluation ending: Please do not hesitate to contact me at [phone] by phone or if you have questions or concerns regarding this new plan of care! Sincerely, ELANA Daily
--- NOTE | 2025-03-10 10:57 | HP.PTDCSUM ---
Discharge Summary D/C summary: It has been my pleasure to treat VARGAS SUTHERLAND referred by HALEY TIDWELL, with the diagnosis of Traumatic Brachial Plexopathy for a total of 19 visit(s). Discharge Date: 03/10/25 Please see the following information for a summary of their discharge status. Subjective Subjective: Pt will be discharged from OT at this time. She feels numb and tingling in her arm at times. Pt is trying to use her L arm to use her R arm more at home. Pain R shoulder pain: Pain Intensity (Out of 10): 1 Overall Improvement % Improvement: 40 Objective Objective/Function: Shoulder AROM R shoulder flex 30 and L 125 R shoulder ABD 25 and L 132 R shoulder IR PSIS and L T6 R shoulder ER 52 and L 77 Shoulder MMT R shoulder flex 0 and L 6.8 R shoulder ER 3.5 and L 7.8 R shoulder IR 7 and L 7.5 Goals Goal 1:: I HEP Goal Progress: Progressing Goal 2:: Increase R shoulder AROM (at the time of the eval: Shoulder AROM R shoulder flex 10 and L 125 R shoulder ABD 11 and L 132 R shoulder IR PSIS and L T6 R shoulder ER 52 and L 77) Goal Progress: Not Progressing Goal 3:: Increase R shoulder strength (Shoulder MMT R shoulder flex 0 and L 6.8 R shoulder ER 2.1 and L 7.8 R shoulder IR 5 and L 7.5). Goal Progress: Not Progressing Goal 4:: Be able to use shoulder more throughout the day with ADL's Goal Progress: Progressing Goal 5:: Sit with good posture Goal Progress: Goal Met Plan Plan: No functional progress seen. Will be discharged at this time and the pt will continue to try and use her R arm as much as she can D/C Information Discharge Comments: No functional progress made as far as ROM and strength or ability to freely use the R shoulder d/c sentence: If there are questions or concerns regarding this patient's physical therapy, please feel free to call me at [phone]. Thank you for the referral of this patient. Sincerely, Lexie Brandt, MPT Balance/Gait/Functional tests Balance/Special Test Scores Quick DASH Score: 31.8175 Improvement % Improvement: 40
--- NOTE | 2025-03-11 14:34 | HP.OTDCSUM_ITS ---
Discharge Summary D/C Summary: It has been my pleasure to treat VARGAS SUTHERLAND under orders from HALEY TIDWELL, for the diagnosis of Traumatic brachial plexopathy for a total of 21 visit(s). Please see the following information for a summary of their discharge status. Overall Improvement % Improvement: 52 Objective Objective/Function: PIP IF 35 following 40 MF 35 following 40 RF 30 following 35 LF 45 following 45 painful thumb IP 0 mp 30 pt has made minimal gains in ROM since January. Therapist explained to pt to continue to work on her PROM, AROM and use as tolerated. 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 to 15# or greater to improve pts use of right UE with ADLs by d.c pt will demo an increase in right lateral pinch to 4# to increase pt functional use of right hand with ADls by d.c Goal:: pt will demo full right elbow ROM by d/c to increase pts use of right UE by d/c .( goal met) pt will demo right forearm supination to 60* or greater to improve pts functional ROM by d.c (goal met) pt will demo a increase in right wrist ROM 45/55 or greater to increase use of right UE with ADLs by d.c (goal met) pt will demo full composite fist to use right hand to assist with dressing and bathing by d.c Goal:: pt will report no pain greater than 2/10 with use of right UE by D/c Goal:: 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 (progressing) Plan Plan: d/c with HEP No change in Measurements since re-check D/C Information Discharge Comments: pt was seen for 21 OT sessions. Pt has made minimal gains due to joint stiffness and OA changes. As pt limited gains rec'd pt cont. with her HEP. pt demo understanding and is d/c . d/c sentence: If there are questions or concerns regarding this patient's occupational therapy, please fell free to call me at [phone]. Thank you for the referral of this patient. Sincerely, Irene Perea, OTR/L, CHT
== END 2025-03-10 19:00 | disposition home or self-care (01) ==
LOC: PT 10:30
PROVIDERS: PCP Student in an Organized Health Care Education/Training Program
DX: S14.3XXD Injury of brachial plexus, subsequent encounter (principal)
CPT/HCPCS: 97110; 97140; 97162; 97166; 97530